=== PATIENT | male | born 1945 | race Caucasian/White ===

== ENCOUNTER 2016-07-31 13:20 | Observation (INO) | payer MEDICARE, MEDICAID ==
--- NOTE | 2016-07-31 14:26 | ER Document Report ---
ED Medical Screen (RME) - General Chief Complaint: Headache Stated Complaint: HEAD PAIN, LEFT ARM NUMBNESS Mode of Arrival: Ambulatory Information source: Patient TRAVEL OUTSIDE OF THE [place] IN LAST 30 DAYS: No - HPI Onset: This morning - awoke w/ sxs Quality of pain: Other - numbness Severity: Mild Associated Symptoms: Headache, Weakness - arm, Other - epistaxis Exacerbated by: Denies Relieved by: Denies - Related Data Smoking: Non-smoker Frequency of alcohol use: None Drug Abuse: None Allergies/Adverse Reactions: No Known Allergies Allergy (Verified 07/31/16 13:26) Past Medical History - General Information source: Patient, Relative - Social History Cigarette use (# per day): No Chew tobacco use (# tins/day): No Frequency of alcohol use: None Drug Abuse: None Lives with: Family Family history: Reviewed & Not Pertinent - Past Medical History Cardiac Medical History: Reports: Hx Atrial Fibrillation, Hx Hypercholesterolemia, Hx Hypertension Denies: Hx Congestive Heart Failure, Hx Coronary Artery Disease, Hx Heart Attack, Hx Peripheral Vascular Disease, Hx Pulmonary Embolism, Hx Heart Murmur Pulmonary Medical History: Reports: Hx COPD, Hx Pneumonia Denies: Hx Asthma, Hx Bronchitis, Hx Respiratory Failure, Hx Sleep Apnea, Hx Tuberculosis Neurological Medical History: Reports: Hx Migraine. Denies: Hx Cerebrovascular Accident, Hx Seizures Endocrine Medical History: Reports: Hx Hypothyroidism Renal/ Medical History: Denies: Hx Peritoneal Dialysis Malignancy Medical History: Denies Hx Lung Cancer GI Medical History: Reports: Hx Gastroesophageal Reflux Disease, Hx Ulcer. Denies: Hx Crohn's Disease, Hx Hiatal Hernia, Hx Irritable Bowel, Hx Liver Failure Musculoskeltal Medical History: Reports Hx Arthritis, Denies Hx Fibromyalgia, Denies Hx Muscular Dystrophy Psychiatric Medical History: Denies: Hx Depression Traumatic Medical History: Reports: Hx Fractures Past Surgical History: Reports: Hx Abdominal Surgery - hernia, ulcer, Hx Appendectomy, Hx Cardiac Surgery - pacemaker, Hx Herniorrhaphy, Hx Pacemaker - meditronic, Other - Partial gastric resection secondary to ulcer. Denies: Hx Cardiac Catheterization, Hx Colostomy, Hx Coronary Stent - Immunizations Hx Diphtheria, Pertussis, Tetanus Vaccination: No - unknown Review of Systems - Review of Systems Constitutional: No symptoms reported EENT: See HPI Cardiovascular: See HPI Respiratory: No symptoms reported Gastrointestinal: No symptoms reported Musculoskeletal: No symptoms reported Skin: No symptoms reported Neurological/Psychological: See HPI Physical Exam - Vital signs Vitals: Temp Pulse Resp BP Pulse Ox 98.0 F 63 16 134/70 H 96 07/31/16 13:34 07/31/16 13:34 07/31/16 13:34 07/31/16 13:34 07/31/16 13:34 Interpretation: Normal - General General appearance: Appears well, Alert In distress: None Course - Vital Signs Vital signs: Temp Pulse Resp BP Pulse Ox 98.0 F 63 16 134/70 H 96 07/31/16 13:34 07/31/16 13:34 07/31/16 13:34 07/31/16 13:34 07/31/16 13:34
[2016-07-31 14:58] LABS: ABSOLUTE BASOPHILS # (AUTO) 0.1 10^3/uL (0.0-0.2); ABSOLUTE EOSINOPHILS # (AUTO) 0.4 10^3/uL (0.0-0.6); ABSOLUTE LYMPHOCYTES (AUTO) 1.5 10^3/uL (0.5-4.7); ABSOLUTE MONOCYTES (AUTO) 0.5 10^3/uL (0.1-1.4); ABSOLUTE NEUT (AUTO) 4.4 10^3/uL (1.7-8.2); BASOPHILS % (AUTO) 0.8 % (0-2); EOSINOPHILS % (AUTO) 5.9 % (0-6); HEMATOCRIT 38.4 % (37.9-51.0); HEMOGLOBIN 13.4 g/dL (13.5-17.0); HGB HCT DIFFERENCE 1.8; LYMPHOCYTES % (AUTO) 22.3 % (13-45); MEAN CORPUSCULAR HEMOGLOBIN 33.6 pg (27.0-33.4); MEAN CORPUSCULAR HGB CONC 34.9 g/dL (32.0-36.0); MEAN CORPUSCULAR VOLUME 96 fl (80-97); MONOCYTES % (AUTO) 7.7 % (3-13); RED BLOOD COUNT 3.99 10^6/uL (4.35-5.55); RED CELL DISTRIBUTION WIDTH 13.6 % (11.5-14.0); SEGMENTED NEUTROPHILS % (AUTO) 63.3 % (42-78); WHITE BLOOD COUNT 6.9 10^3/uL (4.0-10.5)
[2016-07-31 15:24] LABS: ALANINE AMINOTRANSFERASE 38 U/L (21-72); ALBUMIN 3.6 g/dL (3.5-5.0); ALKALINE PHOSPHATASE 59 U/L (38-126); ANION GAP 11 (5-19); ASPARTATE AMINO TRANSFERASE 29 U/L (17-59); BILIRUBIN,DIRECT 0.2 mg/dL (0.0-0.4); BILIRUBIN,TOTAL 0.5 mg/dL (0.2-1.3); BLOOD UREA NITROGEN 19 mg/dL (7-20); CALCIUM 8.9 mg/dL (8.4-10.2); CARBON DIOXIDE 24 mmol/L (22-30); CHLORIDE 110 mmol/L (98-107); CREATININE RESULT 1.28 mg/dL (0.52-1.25); GLUCOSE 121 mg/dL (75-110); POTASSIUM 4.4 mmol/L (3.6-5.0); TOTAL PROTEIN 6.3 g/dL (6.3-8.2)
--- NOTE | 2016-07-31 18:21 | ER Document Report ---
ED Neuro Symptoms/Deficit - General Chief Complaint: Headache Stated Complaint: HEAD PAIN, LEFT ARM NUMBNESS Time seen by provider: 18:20 Mode of Arrival: Ambulatory Information source: Patient TRAVEL OUTSIDE OF THE [place] IN LAST 30 DAYS: No - HPI Patient complains to provider of: Weakness - Left arm and leg Onset: This morning Awoke with symptoms: Yes Symptoms are: Worse/persistent Duration: Continues in ED Quality of pain: No pain Baseline Gait: Walks w/o assistance New weakness: LUE, LLE Decreased ability to stand/walk: Weak Vision problem/glaucoma: No Associated symptoms: Headache Similar symptoms previously: Yes Recently seen / treated by doctor: Yes Notes: Patient is a 70-year-old male who presents to the emergency room complaining of left-sided arm and leg weakness that started when he woke up around 5 AM, he also reports a nosebleed this morning and a headache, patient has a history of CVA and was admitted this hospital back in [place] for similar symptoms, he states his symptoms resolved intermittently, and came back today, states he called his primary care provider who advised him to come to the emergency room - Related Data Allergies/Adverse Reactions: No Known Allergies Allergy (Verified 07/31/16 13:26) Home Medications: Current Home Medications Acetaminophen [Tylenol 325 mg Tablet] 650 mg PO Q4HP PRN 07/31/16 [History] Amiodarone HCl [Cordarone 200 mg Tablet] 200 mg PO DAILY 07/31/16 [History] Apixaban [Eliquis 5 mg Tablet] 5 mg PO BID 07/31/16 [History] Aspirin [Aspirin EC] 81 mg PO DAILY 07/31/16 [History] Levothyroxine Sodium [Synthroid] 50 mcg PO DAILY 07/31/16 [History] Metoprolol Succinate [Toprol Xl 25 mg Tab.sr] 25 mg PO DAILY 07/31/16 [History] Pantoprazole Sodium [Protonix] 40 mg PO DAILY 07/31/16 [History] Potassium Chloride 10 meq PO DAILY 07/31/16 [History] Simvastatin [Zocor 20 mg Tablet] 20 mg PO QHS 07/31/16 [History] Tiotropium [place] [Spiriva Handihaler 5 Cap/Kit (18 Mcg/Cap)] 1 cap IH DAILY [History] Past Medical History - General Information source: Patient, Relative - Social History Smoking Status: Unknown if Ever Smoked Cigarette use (# per day): No Chew tobacco use (# tins/day): No Frequency of alcohol use: None Drug Abuse: None Lives with: Family Family History: CAD - Father Patient has suicidal ideation: No Patient has homicidal ideation: No - Past Medical History Cardiac Medical History: Reports: Hx Atrial Fibrillation, Hx Hypercholesterolemia, Hx Hypertension Denies: Hx Congestive Heart Failure, Hx Coronary Artery Disease, Hx Heart Attack, Hx Peripheral Vascular Disease, Hx Pulmonary Embolism, Hx Heart Murmur Pulmonary Medical History: Reports: Hx COPD, Hx Pneumonia Denies: Hx Asthma, Hx Bronchitis, Hx Respiratory Failure, Hx Sleep Apnea, Hx Tuberculosis Neurological Medical History: Reports: Hx Migraine. Denies: Hx Cerebrovascular Accident, Hx Seizures Endocrine Medical History: Reports: Hx Hypothyroidism Renal/ Medical History: Denies: Hx Peritoneal Dialysis Malignancy Medical History: Denies Hx Lung Cancer GI Medical History: Reports: Hx Gastroesophageal Reflux Disease, Hx Ulcer. Denies: Hx Crohn's Disease, Hx Hiatal Hernia, Hx Irritable Bowel, Hx Liver Failure Musculoskeltal Medical History: Reports Hx Arthritis, Denies Hx Fibromyalgia, Denies Hx Muscular Dystrophy Psychiatric Medical History: Denies: Hx Depression Traumatic Medical History: Reports: Hx Fractures Past Surgical History: Reports: Hx Abdominal Surgery - hernia, ulcer, Hx Appendectomy, Hx Cardiac Surgery - pacemaker, Hx Herniorrhaphy, Hx Pacemaker - meditronic, Other - Partial gastric resection secondary to ulcer. Denies: Hx Cardiac Catheterization, Hx Colostomy, Hx Coronary Stent - Immunizations Hx Diphtheria, Pertussis, Tetanus Vaccination: No - unknown Hx Pneumococcal Vaccination: 02/28/10 Review of Systems - Review of Systems Constitutional: No symptoms reported EENT: No symptoms reported Cardiovascular: No symptoms reported Respiratory: No symptoms reported Gastrointestinal: No symptoms reported Genitourinary: No symptoms reported Male Genitourinary: No symptoms reported Musculoskeletal: No symptoms reported Skin: No symptoms reported Hematologic/Lymphatic: No symptoms reported Neurological/Psychological: See HPI -: Yes All other systems reviewed and negative Physical Exam - Vital signs Vitals: Temp Pulse Resp BP Pulse Ox 98.0 F 63 16 134/70 H 96 07/31/16 13:34 07/31/16 13:34 07/31/16 13:34 07/31/16 13:34 07/31/16 13:34 Interpretation: Normal - General General appearance: Appears well, Alert - HEENT Head: Normocephalic, Atraumatic Eyes: Normal Pupils: PERRL - Respiratory Respiratory status: No respiratory distress Chest status: Nontender Breath sounds: Normal Chest palpation: Normal - Cardiovascular Rhythm: Regular Heart sounds: Normal auscultation Murmur: No - Abdominal Inspection: Normal Distension: No distension Bowel sounds: Normal Tenderness: Nontender Organomegaly: No organomegaly - Back Back: Normal, Nontender - Extremities General upper extremity: Normal inspection, Nontender, Normal color, Normal ROM , Normal temperature General lower extremity: Normal inspection, Nontender, Normal color, Normal ROM , Normal temperature, Normal weight bearing. No: Ish's sign - Neurological Neuro grossly intact: Yes Cognition: Normal Orientation: AAOx4 [place] Scale Eye Opening: Spontaneous [place] Scale Verbal: Oriented [place] Coma Scale Motor: Obeys Commands [place] Scale Total: 15 Speech: Normal Additional motor exam normals: Other - Patient with 4 out of 5 strength in the left upper and lower extremities Sensory: Normal - Psychological Associated symptoms: Normal affect, Normal mood - Skin Skin Temperature: Warm Skin Moisture: Dry Skin Color: Normal Course - Re-evaluation Re-evalutation: 07/31/16 23:31 Patient with symptoms consistent with acute CVA, however symptoms started at 5: 00 in the morning, patient does not meet the window to receive TPA, he was discussed with the hospitalist who agrees to admit for further evaluation and treatment - Vital Signs Vital signs: Temp Pulse Resp BP Pulse Ox 98.0 F 63 16 134/70 H 96 07/31/16 13:34 07/31/16 13:34 07/31/16 13:34 07/31/16 13:34 07/31/16 13:34 - Laboratory Result Diagrams: 07/31/16 14:35 07/31/16 14:35 Laboratory results interpreted by me: 07/31/16 07/31/16 14:35 14:35 RBC 3.99 L Hgb 13.4 L MCH 33.6 H Chloride 110 H Creatinine 1.28 H Est GFR (Non-Af Amer) 55 L Glucose 121 H - Diagnostic Test Radiology reviewed: Image reviewed, Reports reviewed - EKG Interpretation by Me Rate: Normal Additional EKG results interpreted by me: 07/31/16 23:31 Paced rhythm, rate 63, no acute findings - Transfer of Care Care transferred to following provider: Dr. Rinaldi ED [employer]/Exc Criteria - Date/Time patient last known well: Date/Time: 07/31/2016, 5 AM - Date/Time patient arrived in ED: _: 07/31/2016, 1326 - Inclusion Criteria: 1: Patient presented to ED within 3 hours of acute ischemic stroke symptom onset ? -: No 2: Did baseline CT exclude intracranial hemorrhage and/or other risk factors? -: Yes 3: Is the age of the patient 18 years of age or greater? -: Yes : If any of the above questions are answered "NO" then stop, patient is not a candidate for Alteplase, : If all of the above questions are answered "YES" then continue with Exclusion Criteria. - Exclusion Criteria: 1: Is there evidence of intracranial hemorrhage on baseline CT? 2: Is there suspicion of subarachnoid hemorrhage (even if CT negative)? 3: Is there a history of serious head trauma, recent previous stroke or NM within 3 months? 4: Does the patient have a clinical presentation consistent with NM or post-NM pericarditis? 5: Is there history of intracranial hemorrhage? 6: On repeated measurement is Systolic BP greater than 185mmHg or Diastolic BP greater that 110 mmHg and is aggressive treatment needed to reduce blood pressure to these limits (e.g. constant infusion of an anti-hypertensive)? 7: Did the patient awake with stroke symptoms? 8: Has the patient had a lumbar puncture or an arterial puncture at a non- compressile site within 7 days? 9: With in the last 14 days did the patient have surgery or major trauma? 10: Is the patient or less than 2 weeks? 11: Was there any active bleeding or acute trauma? 12: Does the patient have intracranial neoplasm, arteriovenous malformation or aneurysm? 13: Does the patient have abnormal glucose (less than 50 or greater than 400mg/ dl)? Record glucose in Comment. 14: Patient has rapidly improving symptoms at the time Alteplase is to be Administered. 15: Does the patient have any risks for bleeding, including but not limited to: a.: Current use of Coumadin with PT greater than 15 seconds or INR greater than 1.7. b.: Current use of Pradaxa (Dabigatran). c.: Heparin administereed within the past 48 hours and PTT elevated. d.: Platelet count less than 100,000/mm. e.: Major surgery or serious trauma within 14 days. f.: Gastrointestinal or gynecological urinary bleeding within 14 days. g.: Myocardial Infarction (NM) within 3 months. : If the answer to any of the above questions is "YES" then stop, the patient is not a candidate for Alteplase. : If the answer to all of the above questions is "NO" then the patient may be eligible for the Administration of Alteplase. : If the patient is noted to have seizure activity at onset of Stroke symptoms; Consult Neurologist for further evaluation. - The patient is: -: Included and is eligible to receive Alteplase. *Initiate bed placement at higher level of care* Reviewd risks & benefits of thrombolytic therapy: I have reviewed the risks and benefits of thrombolytic therapy with the patient and/or his/her family. -: Excluded and not eligible to receive Alteplase for the above exclusions. -: Excluded and not eligible to receive Alteplase for other reasons (specify in comments): --: Yes - patient does not meet 3 hour window - Diagnosis of TIA: -: Patient presented with transient symptoms that are now resolved and no other neurologic findings are currently present. List symptoms in comments. -: Patient is NOT a candidate for tPA. -: ____(put name in comment) has been consulted for admission and continued evaluation of risk factor assessment. Discharge - Discharge Clinical Impression: Acute CVA (cerebrovascular accident) Condition: Stable Disposition: ADMITTED OBSERVATION Admitting Provider: Hospitalist Unit Admitted: [facility]
[2016-07-31] MEDS ORDERED: ACETAMINOPHEN 325 MG TABLET PO PRN (18:52)
[2016-07-31] MEDS ORDERED: ONDANSETRON 4 MG TAB.RAPDIS PO PRN (18:52)
[2016-07-31] MEDS ORDERED: ONDANSETRON HCL INJ/PF 4 MG/2 ML SDV IV PRN (18:52)
--- NOTE | 2016-07-31 19:05 | EKG REPORT ---
SEVERITY:- ABNORMAL ECG - ATRIAL-PACED COMPLEXES LEFT VENTRICULAR HYPERTROPHY : Confirmed by: Yasmin Mendez MD 31-Jul-2016 19:04:53
--- NOTE | 2016-07-31 19:12 | PDOC H&P ---
History of Present Illness Admission Date/PCP: DELFINO BLACKMON PA-C Patient complains of: Left arm and leg numbness and weakness History of Present Illness: LIONEL ACEVEDO is a 70 year old male who has a history of previous CVA and has been hospitalized in March 2016 had a workup at that time with an echocardiogram and carotid Dopplers that were unremarkable. The patient has been on Eliquis and had been on aspirin also been stopped that about a week ago. He presented by waking up this morning with left arm numbness left leg numbness and some weakness in both of those. He also noticed some problems with nose bleeding and called his primary care doctor instructed him go to the emergency room. The patient had a previous CVA with left arm weakness and needs whatever somebody all function. The patient denied any visual changes. Denied any dysarthria or dysphasia. Denies have any palpitations or tachycardia but does have known atrial fibrillation but is anticoagulated with Eliquis and he has been compliant with. The patient denies any fevers or chills. He denies any head trauma. Past Medical History Cardiac Medical History: Reports: Atrial Fibrillation, Hyperlipidema, Hypertension Denies: Congestive Heart Failure, Coronary Artery Disease, Myocardial Infarction, Peripheral Vascular Disease, Pulmonary Embolism, Heart Murmur Pulmonary Medical History: Reports: Chronic Obstructive Pulmonary Disease (COPD) , Pneumonia Denies: Asthma, Bronchitis, Respiratory Failure, Sleep Apnea, Tuberculosis Neurological Medical History: Reports: Migraine Denies: Seizures Endocrine Medical History: Reports: Hypothyroidism Malignancy Medical History: Denies: Lung Cancer GI Medical History: Reports: Gastroesophageal Reflux Disease Denies: Crohn's Disease, Hiatal Hernia Musculoskeltal Medical History: Reports: Arthritis Denies: Fibromyalgia Psychiatric Medical History: Denies: Depression Hematology: Denies: Anemia Infectious Medical History: Reports: None Past Surgical History Past Surgical History: Reports: Appendectomy, Herniorrhaphy, Pacemaker - meditronic, Other - Partial gastric resection secondary to ulcer Denies: Cardiac Catheterization, Colostomy, Coronary Stent Social History Information Source: Patient Lives with: Family Smoking Status: Never Smoker Frequency of Alcohol Use: None Hx Recreational Drug Use: No Drugs: None Hx Prescription Drug Abuse: No - Advance Directive Resuscitation Status: Do Not Resuscitate Surrogate healthcare decision maker:: His brother Moses is his decision maker. Family History Family History: CAD - Father Parental Family History Reviewed: Yes Children Family History Reviewed: No Sibling(s) Family History Reviewed.: No Medication/Allergy Allergies/Adverse Reactions: No Known Allergies Allergy (Verified 07/31/16 13:26) Review of Systems Constitutional: ABSENT: chills, fever(s), headache(s), weight gain, weight loss Eyes: ABSENT: visual disturbances Ears: ABSENT: hearing changes Nose, Mouth, and Throat: PRESENT: other - Epistaxis Cardiovascular: ABSENT: chest pain, dyspnea on exertion, edema, orthropnea, palpitations Respiratory: ABSENT: cough, hemoptysis Gastrointestinal: ABSENT: abdominal pain, constipation, diarrhea, hematemesis, hematochezia, nausea, vomiting Genitourinary: ABSENT: dysuria, hematuria Musculoskeletal: ABSENT: joint swelling Integumentary: ABSENT: rash, wounds Neurological: PRESENT: as per HPI Psychiatric: ABSENT: anxiety, depression Endocrine: ABSENT: cold intolerance, heat intolerance, polydipsia, polyuria Hematologic/Lymphatic: PRESENT: easy bleeding - He is on Eliquis. ABSENT: easy bruising Physical Exam Vital Signs: Temp Pulse Resp BP Pulse Ox 98.0 F 63 16 134/70 H 96 07/31/16 13:34 07/31/16 13:34 07/31/16 13:34 07/31/16 13:34 07/31/16 13:34 Intake & Output 07/30/16 07/31/16 08/01/16 06:59 06:59 06:59 Weight 67.5 kg General appearance: PRESENT: no acute distress, well-developed, well-nourished Head exam: PRESENT: atraumatic, normocephalic Eye exam: PRESENT: conjunctiva pink, EOMI, PERRLA. ABSENT: scleral icterus Ear exam: PRESENT: normal external ear exam Mouth exam: PRESENT: moist, tongue midline Teeth exam: PRESENT: poor dentation Neck exam: ABSENT: carotid bruit, JVD, lymphadenopathy, thyromegaly Respiratory exam: PRESENT: clear to auscultation corine. ABSENT: rales, rhonchi, wheezes Cardiovascular exam: PRESENT: irregular rhythm. ABSENT: diastolic murmur, rubs , systolic murmur Pulses: PRESENT: normal dorsalis pedis pul Vascular exam: PRESENT: normal capillary refill GI/Abdominal exam: PRESENT: normal bowel sounds, soft. ABSENT: distended, guarding, mass, organolmegaly, rebound, tenderness Rectal exam: PRESENT: deferred Extremities exam: ABSENT: calf tenderness, clubbing, pedal edema Neurological exam: PRESENT: alert, awake, oriented to person, oriented to place , oriented to time, oriented to situation, CN II-XII grossly intact, motor sensory deficit - Strength is 4 out of 5 on the left upper and lower extremity. Psychiatric exam: PRESENT: appropriate affect Skin exam: PRESENT: dry, intact, warm. ABSENT: cyanosis, rash Results Laboratory Results: 07/31/16 14:35 07/31/16 14:35 07/31/16 07/31/16 14:35 14:35 WBC 6.9 RBC 3.99 L Hgb 13.4 L Hct 38.4 MCV 96 MCH 33.6 H MCHC 34.9 RDW 13.6 Plt Count 190 Seg Neutrophils % 63.3 Lymphocytes % 22.3 Monocytes % 7.7 Eosinophils % 5.9 Basophils % 0.8 Absolute Neutrophils 4.4 Absolute Lymphocytes 1.5 Absolute Monocytes 0.5 Absolute Eosinophils 0.4 Absolute Basophils 0.1 Sodium 145.0 Potassium 4.4 Chloride 110 H Carbon Dioxide 24 Anion Gap 11 BUN 19 Creatinine 1.28 H Est GFR ( Amer) > 60 Est GFR (Non-Af Amer) 55 L Glucose 121 H Calcium 8.9 Total Bilirubin 0.5 AST 29 ALT 38 Alkaline Phosphatase 59 Total Protein 6.3 Albumin 3.6 Impressions: Head CT 07/31/16 00:00 IMPRESSION: MILD CHRONIC CHANGES OF ATROPHY AND MICROVASCULAR ISCHEMIA. NO ACUTE PROCESS. Assessment & Plan - Diagnosis (1) Acute CVA (cerebrovascular accident) Is this a current diagnosis for this admission?: YesPlan: Patient had recently stopped his aspirin but did continue with his Eliquis. He is instructed not to stop his aspirin unless he is instructed to by a physician. We will restart his aspirin 81 mg a day. He just had a full workup for CVA in March 2016 and will not be repeated. He cannot have an MRI because of his pacemaker. Will consult PT and OT to evaluate. We will admit as observation as I anticipate as long as his symptoms worsen he can be discharged home tomorrow. (2) Hypercholesterolemia Is this a current diagnosis for this admission?: YesPlan: Continue with Zocor. (3) Hypertension Is this a current diagnosis for this admission?: YesPlan: Continue with metoprolol. (4) Hypothyroid Is this a current diagnosis for this admission?: YesPlan: Continue with Synthroid. (5) Afib Qualifiers: Atrial fibrillation type: unspecified Qualified Code(s): I48.91 - Unspecified atrial fibrillation Is this a current diagnosis for this admission?: YesPlan: Patient is on Eliquis and amiodarone as well as Toprol and we will continue with those. - Time Time Spent: 50 to 70 Minutes - Plan Summary Plan Summary: Admit as observation as I anticipate he can go home tomorrow unless his symptoms worsen.
[2016-07-31] MEDS: METOPROLOL SUCCINATE 25 MG TAB.SR.24H PO SCH (21:47)
[2016-07-31] MEDS ORDERED: SIMVASTATIN 10 MG TABLET PO SCH (22:00)
[2016-08-01 05:58] LABS: HEMATOCRIT 37.5 % (37.9-51.0); HEMOGLOBIN 13.2 g/dL (13.5-17.0); HGB HCT DIFFERENCE 2.1; MEAN CORPUSCULAR HEMOGLOBIN 33.4 pg (27.0-33.4); MEAN CORPUSCULAR HGB CONC 35.2 g/dL (32.0-36.0); MEAN CORPUSCULAR VOLUME 95 fl (80-97); RED BLOOD COUNT 3.96 10^6/uL (4.35-5.55); RED CELL DISTRIBUTION WIDTH 13.4 % (11.5-14.0); WHITE BLOOD COUNT 6.8 10^3/uL (4.0-10.5)
[2016-08-01 06:07] LABS: ANION GAP 11 (5-19); BLOOD UREA NITROGEN 16 mg/dL (7-20); CALCIUM 8.6 mg/dL (8.4-10.2); CARBON DIOXIDE 22 mmol/L (22-30); CHLORIDE 112 mmol/L (98-107); GLUCOSE 93 mg/dL (75-110); SODIUM 144.6 mmol/L (137-145)
--- NOTE | 2016-08-01 09:35 | Physician Advisory Note ---
Physician Advisor ProgressNote .: Pursuant to the plan for [facility], I have reviewed the medical record for this patient. Physician Advisor Statement: Please consider documentin. ""Acute Rt-sided thrombotic [or embolic?] middle cerebral artery CVA with cerebral infarction, with Lt [dominant or nondominant?] hemiparesis, [resolved or improved or persistent] " Status: appropriate OutPt Obs. Thanks, CK
[2016-08-01] MEDS ORDERED: AMIODARONE HCL 200 MG TABLET PO SCH (10:00)
[2016-08-01] MEDS ORDERED: ASPIRIN 81 MG TABLET, ENT COATED PO SCH (10:00)
[2016-08-01] MEDS ORDERED: APIXABAN 5 MG TABLET PO SCH (10:00)
[2016-08-01] MEDS ORDERED: LEVOTHYROXINE SODIUM 0.05 MG TABLET PO SCH (10:00)
[2016-08-01] MEDS ORDERED: TIOTROPIUM BROMIDE DPI 5 CAP/KIT (18 MCG/CAP) IH SCH (10:00)
[2016-08-01 10:28] VITALS: BP 110/68
[2016-08-01] MEDS: METOPROLOL SUCCINATE 25 MG TAB.SR.24H PO SCH (10:49)
--- NOTE | 2016-08-01 11:33 | PDOC DISCHARGE SUMMARY ---
General - Admit/Disc Date/PCP Admission Date/Primary Care Provider: 07/31/16 18:53 DELFINO BLACKMON PA-C Discharge Date: 08/01/16 - Discharge Diagnosis (1) Acute CVA (cerebrovascular accident) Is this a current diagnosis for this admission?: YesSummary: With left-sided weakness which has improved but has not resolved overnight. He has had a previous stroke workup in March 2016. He cannot have an MRI because of a pacemaker. He has been instructed to restart his aspirin and do not quit it. (2) Hypercholesterolemia Is this a current diagnosis for this admission?: Yes (3) Hypertension Is this a current diagnosis for this admission?: Yes (4) Hypothyroid Is this a current diagnosis for this admission?: Yes (5) Afib Is this a current diagnosis for this admission?: Yes - Additional Information Resuscitation Status: Do Not Resuscitate Discharge Diet: Cardiac Discharge Activity: Activity As Tolerated Home Medications: Acetaminophen [Tylenol 325 mg Tablet] 650 mg PO Q4HP PRN 07/31/16 Amiodarone HCl [Cordarone 200 mg Tablet] 200 mg PO DAILY 07/31/16 Apixaban [Eliquis 5 mg Tablet] 5 mg PO BID 07/31/16 Aspirin [Aspirin EC] 81 mg PO DAILY 07/31/16 Levothyroxine Sodium [Synthroid] 50 mcg PO DAILY 07/31/16 Metoprolol Succinate [Toprol Xl 25 mg Tab.sr] 25 mg PO DAILY 07/31/16 Pantoprazole Sodium [Protonix] 40 mg PO DAILY 07/31/16 Potassium Chloride 10 meq PO DAILY 07/31/16 Simvastatin [Zocor 20 mg Tablet] 20 mg PO QHS 07/31/16 Tiotropium [place] [Spiriva Handihaler 5 Cap/Kit (18 Mcg/Cap)] 1 cap IH DAILY History of Present Illness History of Present Illness: LIONEL ACEVEDO is a 70 year old male who has a history of previous CVA and has been hospitalized in March 2016 had a workup at that time with an echocardiogram and carotid Dopplers that were unremarkable. The patient has been on Eliquis and had been on aspirin also been stopped that about a week ago. He presented by waking up this morning with left arm numbness left leg numbness and some weakness in both of those. He also noticed some problems with nose bleeding and called his primary care doctor instructed him go to the emergency room. The patient had a previous CVA with left arm weakness and needs whatever somebody all function. The patient denied any visual changes. Denied any dysarthria or dysphasia. Denies have any palpitations or tachycardia but does have known atrial fibrillation but is anticoagulated with Eliquis and he has been compliant with. The patient denies any fevers or chills. He denies any head trauma. Hospital Course Hospital Course: 70-year-old gentleman with history of atrial fibrillation and previous CVA who has been on Eliquis as well as aspirin but stopped his aspirin several weeks ago because of excessive bleeding and epistaxis. Patient presented with worsening left-sided weakness and he had a head CT that was unremarkable but clinically had an acute right hemispheric CVA. Patient was monitored overnight and had slight improvement in his symptoms was felt he was stable for discharge. The patient in March 2016 had a carotid Doppler which showed no evidence for stenosis and he also had an echocardiogram done at that time. He has been on Eliquis because of atrial fibrillation. The patient's other medical problems were unchanged during this hospitalization. It's felt that he was stable for discharge to home. He is instructed to not stop his aspirin unless instructed to by a physician. Physical Exam Vital Signs: Temp Pulse Resp BP Pulse Ox 97.6 F 62 18 110/68 99 08/01/16 10:26 08/01/16 10:26 08/01/16 10:26 08/01/16 10:26 08/01/16 10:26 Intake & Output 07/31/16 08/01/16 08/02/16 06:59 06:59 06:59 Intake Total 1010 Balance 1010 Weight 66 kg General appearance: PRESENT: no acute distress Eye exam: PRESENT: conjunctiva pink. ABSENT: scleral icterus Ear exam: PRESENT: normal external ear exam Mouth exam: PRESENT: dry mucosa Neck exam: ABSENT: carotid bruit, JVD, lymphadenopathy, thyromegaly Respiratory exam: PRESENT: clear to auscultation corine. ABSENT: rales, rhonchi, wheezes Cardiovascular exam: PRESENT: irregular rhythm. ABSENT: diastolic murmur, rubs , systolic murmur GI/Abdominal exam: PRESENT: normal bowel sounds, soft. ABSENT: distended, guarding, mass, organolmegaly, rebound, tenderness Extremities exam: ABSENT: calf tenderness, clubbing, pedal edema Neurological exam: PRESENT: alert, awake, oriented to person, oriented to place , oriented to time, oriented to situation, CN II-XII grossly intact, motor sensory deficit - Strength is 4 out of 5 on the left upper and lower extremity. Psychiatric exam: PRESENT: appropriate affect Skin exam: PRESENT: dry, intact, warm. ABSENT: cyanosis, rash Results Laboratory Results: 08/01/16 05:34 08/01/16 05:34 08/01/16 08/01/16 05:34 05:34 WBC 6.8 RBC 3.96 L Hgb 13.2 L Hct 37.5 L MCV 95 MCH 33.4 MCHC 35.2 RDW 13.4 Plt Count 178 Sodium 144.6 Potassium 4.0 Chloride 112 H Carbon Dioxide 22 Anion Gap 11 BUN 16 Creatinine 1.00 Est GFR ( Amer) > 60 Est GFR (Non-Af Amer) > 60 Glucose 93 Calcium 8.6 Impressions: Head CT 07/31/16 00:00 IMPRESSION: MILD CHRONIC CHANGES OF ATROPHY AND MICROVASCULAR ISCHEMIA. NO ACUTE PROCESS. Qualifiers PATEINT BEING DISCHARGED WITH ANY OF THE FOLLOWING DIAGNOSIS?: Stroke Stroke Pt being discharged on Anti-thrombolytic therapy?: Yes Stroke Pt being discharged on Anti-coagulation therapy?: Yes Stroke Pt being discharged on Statins?: Yes Plan Discharge Plan: Patient is discharged home in stable condition. He will follow-up with his primary care in 2 weeks. Time Spent: Less than 30 Minutes
== END 2016-08-01 11:33 | disposition home or self-care (01) ==
LOC: ER 13:20 → EH 18:53 → UNDOADMOB 19:07 → 3N 22:59
PROVIDERS: ADMIT Internal Medicine; ATTEND Internal Medicine
DX: I63.9 Cerebral infarction, unspecified (principal); G81.94 Hemiplegia, unspecified affecting left nondominant side; E78.00 Pure hypercholesterolemia, unspecified; I10 Essential (primary) hypertension; E03.9 Hypothyroidism, unspecified; I48.91 Unspecified atrial fibrillation; Z79.01 Long term (current) use of anticoagulants; J44.9 Chronic obstructive pulmonary disease, unspecified; K21.9 Gastro-esophageal reflux disease without esophagitis; Z66 Do not resuscitate
CPT/HCPCS: 93005; 99285; 36415 ×2; 85025; 85027; 80048; 80053; 70450; 93010; G0378 ×3; A9270 ×6; J3490

== ENCOUNTER 2016-08-04 12:35 | Emergency (ER) | payer MEDICARE, MEDICAID ==
--- NOTE | 2016-08-04 13:18 | ER Document Report ---
ED Medical Screen (RME) - General Chief Complaint: Pain All Over Stated Complaint: BODY ACHES Time seen by provider: 13:16 Mode of Arrival: Ambulatory Information source: Patient Notes: 20-year-old male presented to ED for states he feels bad. No nausea vomiting diarrhea or fever. He states he is just very weak cannot walk left leg is too weak. States he was just discharged from the hospital on 07/31/2016 after having a stroke and continues to have weakness to his left leg and pain and weakness to his left arm. States he feels just like he did right before he had a stroke. I consult to Dr. Esparza who stated he need to be on the monitor he needs a CT and he needs to be moved to monitored bed. Patient was moved to room 1 for a physician to see. Patient does not have a facial droop did not have a drift for his left arm but does have a drift with his left leg. Very weak in his left leg. He became very short of breath quickly when asked to move arms and legs. I have greeted and performed a rapid initial assessment of this patient. A comprehensive ED assessment and evaluation of the patient, analysis of test results and completion of medical decision making process will be conducted by an additional ED providers. TRAVEL OUTSIDE OF THE [place] IN LAST 30 DAYS: No - Related Data Allergies/Adverse Reactions: No Known Allergies Allergy (Verified 07/31/16 13:26) Past Medical History - Social History Family history: Reviewed & Not Pertinent - Past Medical History Cardiac Medical History: Reports: Hx Atrial Fibrillation, Hx Hypercholesterolemia, Hx Hypertension Denies: Hx Congestive Heart Failure, Hx Coronary Artery Disease, Hx Heart Attack, Hx Peripheral Vascular Disease, Hx Pulmonary Embolism, Hx Heart Murmur Pulmonary Medical History: Reports: Hx COPD, Hx Pneumonia Denies: Hx Asthma, Hx Bronchitis, Hx Respiratory Failure, Hx Sleep Apnea, Hx Tuberculosis Neurological Medical History: Reports: Hx Migraine. Denies: Hx Cerebrovascular Accident, Hx Seizures Endocrine Medical History: Reports: Hx Hypothyroidism Renal/ Medical History: Denies: Hx Peritoneal Dialysis Malignancy Medical History: Denies Hx Lung Cancer GI Medical History: Reports: Hx Gastroesophageal Reflux Disease, Hx Ulcer. Denies: Hx Crohn's Disease, Hx Hiatal Hernia, Hx Irritable Bowel, Hx Liver Failure Musculoskeltal Medical History: Reports Hx Arthritis, Denies Hx Fibromyalgia, Denies Hx Muscular Dystrophy Psychiatric Medical History: Denies: Hx Depression Traumatic Medical History: Reports: Hx Fractures Past Surgical History: Reports: Hx Abdominal Surgery - hernia, ulcer, Hx Appendectomy, Hx Cardiac Surgery - pacemaker, Hx Herniorrhaphy, Hx Pacemaker - meditronic, Other - Partial gastric resection secondary to ulcer. Denies: Hx Cardiac Catheterization, Hx Colostomy, Hx Coronary Stent - Immunizations Hx Diphtheria, Pertussis, Tetanus Vaccination: No - unknown Physical Exam - Vital signs Vitals: Temp Pulse Resp BP Pulse Ox 97.4 F 64 20 122/68 97 08/04/16 12:41 08/04/16 12:41 08/04/16 12:41 08/04/16 12:41 08/04/16 12:41 Course - Vital Signs Vital signs: Temp Pulse Resp BP Pulse Ox 97.4 F 64 20 122/68 97 08/04/16 12:41 08/04/16 12:41 08/04/16 12:41 08/04/16 12:41 08/04/16 12:41
--- NOTE | 2016-08-04 13:38 | ER Document Report ---
ED General - General Time seen by provider: 13:30 Mode of Arrival: Ambulatory TRAVEL OUTSIDE OF THE [place] IN LAST 30 DAYS: No - HPI Onset: Other - see HPI note Similar symptoms previously: Yes Recently seen / treated by doctor: Yes <KODI MENDEZ - Last Filed: 08/04/16 14:46> <JAZ BOND - Last Filed: 08/04/16 16:11> - General Chief Complaint: Pain All Over Stated Complaint: BODY ACHES Notes: Patient is a 70-year-old male presents emergency department for weakness and headache. Patient states that he "feels bad all over." Patient was evaluated in the emergency department on Sunday07/31/16 for similar symptoms and was admitted to [facility] for CVA. Patient states that he had these symptoms on Sunday as well, but they got better and now they are back again. Patient states his left upper and lower extremities are weak and "feel bad." Patient also complains of a headache but denies any nausea, vomiting, diarrhea or fever. Patient has a history of a ventricular pacemaker and is currently on to blood thinners, one of which is aspirin. Patient also has a history of hypertension, hypercholesterolemia, COPD, A. fib, and hypothyroidism. Patient's primary care physician is Delfino Acosta. Patient has no known allergies. (KODI MENDEZ) - Related Data Allergies/Adverse Reactions: No Known Allergies Allergy (Verified 07/31/16 13:26) Past Medical History - General Information source: Patient - Social History Smoking Status: Smoker,Current Status Unk Family History: CAD - Father Patient has suicidal ideation: No Patient has homicidal ideation: No - Past Medical History Cardiac Medical History: Reports: Hx Atrial Fibrillation, Hx Hypercholesterolemia, Hx Hypertension Pulmonary Medical History: Reports: Hx COPD, Hx Pneumonia Neurological Medical History: Reports: Hx Cerebrovascular Accident, Hx Migraine Endocrine Medical History: Reports: Hx Hypothyroidism GI Medical History: Reports: Hx Gastroesophageal Reflux Disease, Hx Ulcer Musculoskeltal Medical History: Reports Hx Arthritis Traumatic Medical History: Reports: Hx Fractures Past Surgical History: Reports: Hx Abdominal Surgery - hernia, ulcer, Hx Appendectomy, Hx Cardiac Surgery - pacemaker, Hx Herniorrhaphy, Hx Pacemaker - meditronic, ventricular, Other - Partial gastric resection secondary to ulcer - Immunizations Hx Diphtheria, Pertussis, Tetanus Vaccination: No - unknown Hx Pneumococcal Vaccination: 02/28/10 <ANDREAKODI - Last Filed: 08/04/16 14:46> Review of Systems - Review of Systems Constitutional: See HPI, Weakness EENT: No symptoms reported Cardiovascular: No symptoms reported Respiratory: No symptoms reported Gastrointestinal: No symptoms reported Genitourinary: No symptoms reported Male Genitourinary: No symptoms reported Musculoskeletal: No symptoms reported Skin: No symptoms reported Hematologic/Lymphatic: No symptoms reported Neurological/Psychological: See HPI, Weakness, Headaches -: Yes All other systems reviewed and negative <KODI MENDEZ - Last Filed: 08/04/16 14:46> Physical Exam - Vital signs Interpretation: Normal <NABEELROXIEKODI - Last Filed: 08/04/16 14:46> Course - Laboratory Result Diagrams: 08/04/16 13:47 08/04/16 13:47 <KODI MENDEZ - Last Filed: 08/04/16 14:46> - Laboratory Result Diagrams: 08/04/16 13:47 08/04/16 14:42 - EKG Interpretation by Me Rate: Normal <JAZ BOND - Last Filed: 08/04/16 16:11> - Re-evaluation Re-evalutation: 08/04/16 14:27 Reviewed the patient's discharge summary as well as workup from March. Unfortunately an MRI cannot be performed as he has a pacemaker. As well, the patient has a history of atrial fibrillation and is currently in a normal paced rhythm. He has been on our requests and is back on his aspirin now. It appears he is completely compliant with this. He is not a TPA candidate as he is on our requests and has a low NIH scale. Patient's workup in March included no significant stenosis on carotid ultrasound as well as echocardiogram. (JAZ BOND) - Vital Signs Vital signs: Temp Pulse Resp BP Pulse Ox 97.7 F 64 23 H 116/69 95 08/04/16 15:53 08/04/16 13:45 08/04/16 13:47 08/04/16 13:47 08/04/16 13:47 - Laboratory Laboratory results interpreted by me: 08/04/16 08/04/16 08/04/16 13:47 13:47 14:42 RBC 4.24 L PT 16.0 H APTT 36.9 H Chloride 108 H Creatine Kinase 41 L Total Protein 6.1 L - EKG Interpretation by Me Additional EKG results interpreted by me: 08/04/16 14:30 Atrioventricular dual paced rhythm. No clear ischemia. (LYNSEYJAZ Jesus Manuel) Discharge <KODI MENDEZ - Last Filed: 08/04/16 14:46> <LYNSEYJAZ - Last Filed: 08/04/16 16:11> - Discharge Clinical Impression: Weakness following cerebrovascular accident (CVA) Condition: Good Disposition: HOME, SELF-CARE Additional Instructions: Please ensure you are continuing your aspirin and Eliquis. Return for worsening otherwise. I reviewed the patient's workup from prior. At this point his symptoms are almost resolved and his workup had been maximized as an inpatient. He would like to go home. He does understand risk of CVA. He agrees to continue his blood thinners. Referrals: DELFINO ACOSTA PA-C [Primary Care Provider] - Follow up in 3-5 days Scribe Documentation - Scribe Written by Femi:: Kodi Mendez 08/04/16 14:50 acting as scribe for :: Lynsey <KODI MENDEZ - Last Filed: 08/04/16 14:46>
[2016-08-04 13:57] LABS: ABSOLUTE BASOPHILS # (AUTO) 0.1 10^3/uL (0.0-0.2); ABSOLUTE EOSINOPHILS # (AUTO) 0.4 10^3/uL (0.0-0.6); ABSOLUTE LYMPHOCYTES (AUTO) 1.4 10^3/uL (0.5-4.7); ABSOLUTE MONOCYTES (AUTO) 0.6 10^3/uL (0.1-1.4); ABSOLUTE NEUT (AUTO) 4.9 10^3/uL (1.7-8.2); BASOPHILS % (AUTO) 1.1 % (0-2); EOSINOPHILS % (AUTO) 5.7 % (0-6); HEMATOCRIT 40.6 % (37.9-51.0); HEMOGLOBIN 13.9 g/dL (13.5-17.0); HGB HCT DIFFERENCE 1.1; LYMPHOCYTES % (AUTO) 19.3 % (13-45); MEAN CORPUSCULAR HEMOGLOBIN 32.8 pg (27.0-33.4); MEAN CORPUSCULAR HGB CONC 34.3 g/dL (32.0-36.0); MEAN CORPUSCULAR VOLUME 96 fl (80-97); MONOCYTES % (AUTO) 8.6 % (3-13); RED BLOOD COUNT 4.24 10^6/uL (4.35-5.55); RED CELL DISTRIBUTION WIDTH 13.5 % (11.5-14.0); SEGMENTED NEUTROPHILS % (AUTO) 65.3 % (42-78); WHITE BLOOD COUNT 7.5 10^3/uL (4.0-10.5)
[2016-08-04 14:01] LABS: PARTIAL THROMBOPLASTIN TIME 36.9 SEC (23.5-35.8)
[2016-08-04 15:29] LABS: ALANINE AMINOTRANSFERASE 45 U/L (21-72); ALBUMIN 3.6 g/dL (3.5-5.0); ALKALINE PHOSPHATASE 53 U/L (38-126); ANION GAP 8 (5-19); ASPARTATE AMINO TRANSFERASE 34 U/L (17-59); BILIRUBIN,DIRECT 0.1 mg/dL (0.0-0.4); BILIRUBIN,TOTAL 0.4 mg/dL (0.2-1.3); BLOOD UREA NITROGEN 15 mg/dL (7-20); CALCIUM 9.3 mg/dL (8.4-10.2); CARBON DIOXIDE 27 mmol/L (22-30); CHLORIDE 108 mmol/L (98-107); CREATINE KINASE 41 U/L (55-170); CREATININE RESULT 1.12 mg/dL (0.52-1.25); GLUCOSE 76 mg/dL (75-110); POTASSIUM 4.7 mmol/L (3.6-5.0); SODIUM 142.8 mmol/L (137-145); TOTAL PROTEIN 6.1 g/dL (6.3-8.2)
[2016-08-04 15:48] LABS: CREATINE KINASE MB 0.78 ng/mL (<4.55); TROPONIN I < 0.012 ng/mL
[2016-08-04 16:42] VITALS: BP 116/71
--- NOTE | 2016-08-04 22:24 | EKG REPORT ---
SEVERITY:- ABNORMAL ECG - ATRIAL-VENTRICULAR DUAL-PACED RHYTHM : Confirmed by: Yasmin Mendez MD 04-Aug-2016 22:23:46
== END 2016-08-04 16:43 | disposition home or self-care (01) ==
LOC: ER 12:35
DX: I69.954 Hemiplegia and hemiparesis following unspecified cerebrovascular disease affecting left non-dominant side (principal); M79.1 Myalgia; R51 Headache; E78.00 Pure hypercholesterolemia, unspecified; J44.9 Chronic obstructive pulmonary disease, unspecified; I48.91 Unspecified atrial fibrillation; E03.9 Hypothyroidism, unspecified; F17.200 Nicotine dependence, unspecified, uncomplicated; Z95.0 Presence of cardiac pacemaker; Z79.02 Long term (current) use of antithrombotics/antiplatelets
CPT/HCPCS: 36415; 70450; 71010; 80053; 82550; 82553; 84484; 85025; 85610; 85730; 93005; 93010; 99284

== ENCOUNTER 2016-08-26 12:48 | Observation (INO) | payer MEDICARE, MEDICAID ==
[2016-08-26] MEDS ORDERED: NORMAL SALINE 500 ML IV ONE ×2 (14:04→14:36)
[2016-08-26 14:21] LABS: PROTHROMBIN TIME 16.1 SEC (11.4-15.4)
[2016-08-26 14:23] LABS: ABSOLUTE BASOPHILS # (AUTO) 0.1 10^3/uL (0.0-0.2); ABSOLUTE EOSINOPHILS # (AUTO) 0.4 10^3/uL (0.0-0.6); ABSOLUTE LYMPHOCYTES (AUTO) 1.5 10^3/uL (0.5-4.7); ABSOLUTE MONOCYTES (AUTO) 0.7 10^3/uL (0.1-1.4); ABSOLUTE NEUT (AUTO) 3.9 10^3/uL (1.7-8.2); EOSINOPHILS % (AUTO) 6.6 % (0-6); HEMATOCRIT 34.3 % (37.9-51.0); HEMOGLOBIN 11.8 g/dL (13.5-17.0); HGB HCT DIFFERENCE 1.1; LYMPHOCYTES % (AUTO) 22.8 % (13-45); MEAN CORPUSCULAR HEMOGLOBIN 32.9 pg (27.0-33.4); MEAN CORPUSCULAR HGB CONC 34.3 g/dL (32.0-36.0); MEAN CORPUSCULAR VOLUME 96 fl (80-97); MONOCYTES % (AUTO) 10.2 % (3-13); RED BLOOD COUNT 3.58 10^6/uL (4.35-5.55); RED CELL DISTRIBUTION WIDTH 13.6 % (11.5-14.0); SEGMENTED NEUTROPHILS % (AUTO) 59.4 % (42-78); WHITE BLOOD COUNT 6.5 10^3/uL (4.0-10.5)
[2016-08-26 14:50] LABS: ALANINE AMINOTRANSFERASE 39 U/L (21-72); ALBUMIN 3.3 g/dL (3.5-5.0); ALKALINE PHOSPHATASE 53 U/L (38-126); ANION GAP 10 (5-19); ASPARTATE AMINO TRANSFERASE 32 U/L (17-59); BILIRUBIN,DIRECT 0.3 mg/dL (0.0-0.4); BILIRUBIN,TOTAL 0.5 mg/dL (0.2-1.3); BLOOD UREA NITROGEN 21 mg/dL (7-20); CALCIUM 8.5 mg/dL (8.4-10.2); CARBON DIOXIDE 24 mmol/L (22-30); CHLORIDE 111 mmol/L (98-107); CREATINE KINASE 42 U/L (55-170); CREATININE RESULT 1.33 mg/dL (0.52-1.25); GLUCOSE 86 mg/dL (75-110); POTASSIUM 4.3 mmol/L (3.6-5.0); SODIUM 144.9 mmol/L (137-145)
--- NOTE | 2016-08-26 14:57 | ER Document Report ---
ED General - General Chief Complaint: Chest Pain Stated Complaint: CHEST PAIN Mode of Arrival: Medic Information source: Patient, H Records Notes: This is a 70-year-old male with multiple medical problems who presents via EMS for chest pain. He states that he felt well upon awakening this morning but at about 10 AM he developed some substernal chest discomfort that radiated down his left upper extremity. He also had some shortness of breath. He denies any nausea vomiting or diaphoresis. He states that off and on today his left arm and left leg felt somewhat weak which is very similar to his presentation for CVA in the past. Cannot give me a good time frame for this as the symptoms appear to come and go. He did receive 3 sublingual nitroglycerin in route by EMS as well as aspirin. He has a history of atrial fibrillation and has a pacemaker and is currently on Eliquis and aspirin and reports compliance. Current chest discomfort is 3/10. He is unsure of his last stress test. Primary care physician is Marily Acosta. TRAVEL OUTSIDE OF THE [place] IN LAST 30 DAYS: No - Related Data Allergies/Adverse Reactions: No Known Allergies Allergy (Verified 07/31/16 13:26) Past Medical History - Social History Smoking Status: Former Smoker Chew tobacco use (# tins/day): No Frequency of alcohol use: None Drug Abuse: None Family History: CAD - Father - Past Medical History Cardiac Medical History: Reports: Hx Atrial Fibrillation, Hx Hypercholesterolemia, Hx Hypertension Denies: Hx Congestive Heart Failure, Hx Coronary Artery Disease, Hx Heart Attack, Hx Peripheral Vascular Disease, Hx Pulmonary Embolism, Hx Heart Murmur Pulmonary Medical History: Reports: Hx COPD, Hx Pneumonia Denies: Hx Asthma, Hx Bronchitis, Hx Respiratory Failure, Hx Sleep Apnea, Hx Tuberculosis Neurological Medical History: Reports: Hx Cerebrovascular Accident, Hx Migraine. Denies: Hx Seizures Endocrine Medical History: Reports: Hx Hypothyroidism Renal/ Medical History: Denies: Hx Peritoneal Dialysis Malignancy Medical History: Denies Hx Lung Cancer GI Medical History: Reports: Hx Gastroesophageal Reflux Disease, Hx Ulcer. Denies: Hx Crohn's Disease, Hx Hiatal Hernia, Hx Irritable Bowel, Hx Liver Failure Musculoskeltal Medical History: Reports Hx Arthritis, Denies Hx Fibromyalgia, Denies Hx Muscular Dystrophy Psychiatric Medical History: Denies: Hx Depression Traumatic Medical History: Reports: Hx Fractures Past Surgical History: Reports: Hx Abdominal Surgery - hernia, ulcer, Hx Appendectomy, Hx Cardiac Surgery - pacemaker, Hx Herniorrhaphy, Hx Pacemaker - meditronic, ventricular, Other - Partial gastric resection secondary to ulcer. Denies: Hx Cardiac Catheterization, Hx Colostomy, Hx Coronary Stent - Immunizations Hx Diphtheria, Pertussis, Tetanus Vaccination: No - unknown Hx Pneumococcal Vaccination: 02/28/10 Review of Systems - Review of Systems Constitutional: denies: Chills, Fever EENT: No symptoms reported Cardiovascular: See HPI Respiratory: See HPI. denies: Hurts to breathe Gastrointestinal: No symptoms reported. denies: Abdominal pain, Nausea, Vomiting Genitourinary: denies: No symptoms reported Musculoskeletal: No symptoms reported Skin: No symptoms reported Hematologic/Lymphatic: No symptoms reported Neurological/Psychological: No symptoms reported Physical Exam - Vital signs Vitals: Resp Pulse Ox 15 91 L 08/26/16 13:09 08/26/16 13:09 - General General appearance: Appears well, Alert In distress: None - HEENT Head: Normocephalic, Atraumatic Eyes: Normal Conjunctiva: Normal Mucous membranes: Moist Neck: Normal. No: Lymphadenopathy - Respiratory Respiratory status: No respiratory distress Chest status: Nontender Breath sounds: Normal - Cardiovascular Rhythm: Regular Heart sounds: Normal auscultation, S1 appreciated, S2 appreciated Murmur: No - Abdominal Inspection: Normal Distension: No distension Bowel sounds: Normal Tenderness: Nontender Organomegaly: No organomegaly - Back Back: Normal - Extremities General upper extremity: Normal inspection General lower extremity: Normal inspection - Neurological Cognition: Normal Orientation: AAOx4 Notes: Alert and oriented x4, speech normal, CN intact bilaterally. Motor strength +4/ 5 left upper and left lower extremities. Sensation grossly intact. Course - Re-evaluation Re-evalutation: Patient had improvement in chest discomfort with 3 NTG enroute by EMS. First troponin negative. Will discuss with hospitalist for admission for obs and cardiac rule out. Patient and family are comfortable with this plan. - Vital Signs Vital signs: Temp Pulse Resp BP Pulse Ox 97.5 F 61 18 102/50 L 99 08/26/16 23:24 08/26/16 23:24 08/26/16 23:24 08/26/16 23:24 08/26/16 23:24 - Laboratory Result Diagrams: 08/26/16 13:50 08/26/16 13:50 Laboratory results interpreted by me: 08/26/16 08/26/16 08/26/16 13:50 13:50 13:50 RBC 3.58 L Hgb 11.8 L Hct 34.3 L Eosinophils % 6.6 H PT 16.1 H Chloride 111 H BUN 21 H Creatinine 1.33 H Est GFR (Non-Af Amer) 53 L Creatine Kinase 42 L Total Protein 6.0 L Albumin 3.3 L Discharge - Discharge Clinical Impression: Chest pain Qualifiers: Chest pain type: unspecified Qualified Code(s): R07.9 - Chest pain, unspecified Condition: Stable Disposition: ADMITTED OBSERVATION Admitting Provider: Hospitalist Unit Admitted: Telemetry - Dr. Rinaldi
[2016-08-26 14:58] LABS: CREATINE KINASE MB 1.24 ng/mL (<4.55)
[2016-08-26 15:00] LABS: TROPONIN I < 0.012 ng/mL
[2016-08-26] MEDS ORDERED: ACETAMINOPHEN 325 MG TABLET PO PRN (17:07)
[2016-08-26] MEDS ORDERED: IPRATROPIUM/ALBUTEROL 0.5-2.5 MG/3 ML AMPUL NEB PRN (17:07)
--- NOTE | 2016-08-26 17:19 | PDOC H&P ---
History of Present Illness Admission Date/PCP: 08/26/16 16:42 Patient complains of: Chest pain History of Present Illness: LIONEL ACEVEDO is a 70 year old male who is known to me from previous admissions who presents with chest pain. Patient reports that since 10:00 this morning he had substernal chest pain that he describes as a pressure. He reports it radiates down into his left arm and also has had pain in his left leg. Patient was here about 3 weeks ago with an acute CVA with worsening of his left-sided weakness. Patient has been compliant with his aspirin and his Eliquis. Patient reports that the pain was initially 7 out of 10 and he was given nitroglycerin glycerin with minimal change. He denies any nausea vomiting or diaphoresis. He denies any palpitations or tachycardia. Patient has a pacemaker in place that is functioning. Patient denies any orthopnea or PND. He reports that the pain was not made worse with walking. There is no change with position. It is not reproducible palpation. He has no previous history of coronary artery disease. Past Medical History Cardiac Medical History: Reports: Atrial Fibrillation, Hyperlipidema, Hypertension Denies: Congestive Heart Failure, Coronary Artery Disease, Myocardial Infarction, Peripheral Vascular Disease, Pulmonary Embolism, Heart Murmur Pulmonary Medical History: Reports: Chronic Obstructive Pulmonary Disease (COPD) , Pneumonia Denies: Asthma, Bronchitis, Respiratory Failure, Sleep Apnea, Tuberculosis Neurological Medical History: Reports: Migraine Endocrine Medical History: Reports: Hypothyroidism Malignancy Medical History: Denies: Lung Cancer GI Medical History: Reports: Gastroesophageal Reflux Disease Denies: Crohn's Disease, Hiatal Hernia Musculoskeltal Medical History: Reports: Arthritis Denies: Fibromyalgia Psychiatric Medical History: Denies: Depression Past Surgical History Past Surgical History: Reports: Appendectomy, Herniorrhaphy, Pacemaker - meditronic, ventricular, Other - Partial gastric resection secondary to ulcer Denies: Cardiac Catheterization, Colostomy, Coronary Stent Social History Information Source: Patient Lives with: Family Smoking Status: Former Smoker Frequency of Alcohol Use: None Hx Recreational Drug Use: No Drugs: None Hx Prescription Drug Abuse: No - Advance Directive Resuscitation Status: Full Code Family History Family History: CAD - Father Parental Family History Reviewed: Yes Children Family History Reviewed: No Sibling(s) Family History Reviewed.: No Medication/Allergy Home Medications: Acetaminophen [Tylenol 325 mg Tablet] 650 mg PO Q4HP PRN 07/31/16 Amiodarone HCl [Cordarone 200 mg Tablet] 200 mg PO DAILY 07/31/16 Apixaban [Eliquis 5 mg Tablet] 5 mg PO BID 07/31/16 Aspirin [Aspirin EC] 81 mg PO DAILY 07/31/16 Levothyroxine Sodium [Synthroid] 50 mcg PO DAILY 07/31/16 Metoprolol Succinate [Toprol Xl 25 mg Tab.sr] 25 mg PO DAILY 07/31/16 Pantoprazole Sodium [Protonix] 40 mg PO DAILY 07/31/16 Potassium Chloride 10 meq PO DAILY 07/31/16 Simvastatin [Zocor 20 mg Tablet] 20 mg PO QHS 07/31/16 Tiotropium [place] [Spiriva Handihaler 5 Cap/Kit (18 Mcg/Cap)] 1 cap IH DAILY Allergies/Adverse Reactions: No Known Allergies Allergy (Verified 07/31/16 13:26) Review of Systems Constitutional: ABSENT: chills, fever(s), headache(s), weight gain, weight loss Eyes: ABSENT: visual disturbances Ears: ABSENT: hearing changes Cardiovascular: PRESENT: as per HPI Respiratory: ABSENT: cough, hemoptysis Gastrointestinal: ABSENT: abdominal pain, constipation, diarrhea, hematemesis, hematochezia, nausea, vomiting Genitourinary: ABSENT: dysuria, hematuria Musculoskeletal: ABSENT: joint swelling Integumentary: ABSENT: rash, wounds Neurological: PRESENT: weakness - Left-sided weakness Psychiatric: ABSENT: anxiety, depression Endocrine: ABSENT: cold intolerance, heat intolerance, polydipsia, polyuria Hematologic/Lymphatic: ABSENT: easy bleeding, easy bruising Physical Exam Vital Signs: Temp Pulse Resp BP Pulse Ox 98.1 F 9 L 132/74 H 100 08/26/16 14:01 08/26/16 16:00 08/26/16 16:01 08/26/16 16:01 General appearance: PRESENT: no acute distress, well-developed, well-nourished Head exam: PRESENT: atraumatic, normocephalic Eye exam: PRESENT: conjunctiva pink, EOMI, PERRLA. ABSENT: scleral icterus Ear exam: PRESENT: normal external ear exam Mouth exam: PRESENT: moist, tongue midline Neck exam: ABSENT: carotid bruit, JVD, lymphadenopathy, thyromegaly Respiratory exam: PRESENT: clear to auscultation corine. ABSENT: rales, rhonchi, wheezes Cardiovascular exam: PRESENT: RRR. ABSENT: diastolic murmur, rubs, systolic murmur Pulses: PRESENT: normal dorsalis pedis pul Vascular exam: PRESENT: normal capillary refill GI/Abdominal exam: PRESENT: normal bowel sounds, soft. ABSENT: distended, guarding, mass, organolmegaly, rebound, tenderness Rectal exam: PRESENT: deferred Extremities exam: ABSENT: calf tenderness, clubbing, pedal edema Neurological exam: PRESENT: alert, awake, oriented to person, oriented to place , oriented to time, oriented to situation, CN II-XII grossly intact, motor sensory deficit - Strength is 4 out of 5 in the left upper and lower extremity. Psychiatric exam: PRESENT: appropriate affect Skin exam: PRESENT: dry, intact, warm. ABSENT: cyanosis, rash Results Impressions: Chest X-Ray 08/26/16 13:11 IMPRESSION: NO SIGNIFICANT RADIOGRAPHIC FINDING IN THE CHEST. Head CT 08/26/16 13:46 IMPRESSION: No acute intracranial abnormality. Assessment & Plan - Diagnosis (1) Chest pain Qualifiers: Chest pain type: unspecified Qualified Code(s): R07.9 - Chest pain, unspecified Is this a current diagnosis for this admission?: YesPlan: The patient's chest pain is atypical. He reports it goes down both his left arm and left leg. It is nonexertional. We will continue with aspirin and beta blockers. We'll check serial cardiac enzymes. (2) Hypercholesterolemia Is this a current diagnosis for this admission?: Yes (3) Hypertension Is this a current diagnosis for this admission?: YesPlan: We'll continue with his outpatient oral antihypertensives. (4) Hypothyroid Is this a current diagnosis for this admission?: YesPlan: Continue Synthroid. (5) Afib Qualifiers: Atrial fibrillation type: unspecified Qualified Code(s): I48.91 - Unspecified atrial fibrillation Is this a current diagnosis for this admission?: YesPlan: Patient is rate controlled with a paced rhythm. Continue with Eliquis and amiodarone. - Time Time Spent: 50 to 70 Minutes - Plan Summary Plan Summary: We'll admit as observation as I anticipate this will require less than a 2 midnight hospital stay.
[2016-08-26 20:35] LABS: CREATINE KINASE MB 1.01 ng/mL (<4.55)
[2016-08-26 20:40] LABS: TROPONIN I < 0.012 ng/mL
[2016-08-26] MEDS ORDERED: APIXABAN 5 MG TABLET ONE (20:56)
[2016-08-26] MEDS: APIXABAN 5 MG TABLET PO SCH (21:46)
[2016-08-26] MEDS ORDERED: SIMVASTATIN 10 MG TABLET PO SCH (22:00)
[2016-08-27 02:36] LABS: CREATINE KINASE MB 0.88 ng/mL (<4.55)
[2016-08-27 02:42] LABS: TROPONIN I < 0.012 ng/mL
[2016-08-27 08:28] LABS: HEMATOCRIT 40.9 % (37.9-51.0); HEMOGLOBIN 13.7 g/dL (13.5-17.0); HGB HCT DIFFERENCE 0.2; MEAN CORPUSCULAR HEMOGLOBIN 32.3 pg (27.0-33.4); MEAN CORPUSCULAR HGB CONC 33.5 g/dL (32.0-36.0); MEAN CORPUSCULAR VOLUME 96 fl (80-97); RED BLOOD COUNT 4.24 10^6/uL (4.35-5.55); RED CELL DISTRIBUTION WIDTH 13.7 % (11.5-14.0)
[2016-08-27 08:54] LABS: ANION GAP 11 (5-19); BLOOD UREA NITROGEN 17 mg/dL (7-20); CALCIUM 8.8 mg/dL (8.4-10.2); CARBON DIOXIDE 26 mmol/L (22-30); CHLORIDE 108 mmol/L (98-107); CREATINE KINASE 39 U/L (55-170); CREATININE RESULT 1.06 mg/dL (0.52-1.25); GLUCOSE 82 mg/dL (75-110); MAGNESIUM 2.2 mg/dL (1.6-2.3); POTASSIUM 4.6 mmol/L (3.6-5.0); SODIUM 145.1 mmol/L (137-145)
[2016-08-27 09:04] LABS: CREATINE KINASE MB 0.83 ng/mL (<4.55)
[2016-08-27] MEDS: APIXABAN 5 MG TABLET PO SCH (09:04)
[2016-08-27 09:07] LABS: TROPONIN I < 0.012 ng/mL
[2016-08-27] MEDS ORDERED: LANSOPRAZOLE 30 MG TAB.RAP.DR PO SCH (10:00)
[2016-08-27] MEDS ORDERED: AMIODARONE HCL 200 MG TABLET PO SCH (10:00)
[2016-08-27] MEDS ORDERED: ASPIRIN 81 MG TABLET, ENT COATED PO SCH (10:00)
[2016-08-27] MEDS ORDERED: METOPROLOL SUCCINATE 25 MG TAB.SR.24H PO SCH (10:00)
[2016-08-27] MEDS ORDERED: POTASSIUM CHLORIDE 10 MEQ TABLET.SA PO SCH (10:00)
[2016-08-27] MEDS ORDERED: TIOTROPIUM BROMIDE DPI 5 CAP/KIT (18 MCG/CAP) IH SCH (10:00)
[2016-08-27] MEDS ORDERED: LEVOTHYROXINE SODIUM 0.05 MG TABLET PO SCH (10:00)
--- NOTE | 2016-08-27 10:06 | EKG REPORT ---
SEVERITY:- ABNORMAL ECG - A-V DUAL-PACED RHYTHM WITH SOME INHIBITION : Confirmed by: Yu Waller 27-Aug-2016 10:05:37
--- NOTE | 2016-08-27 10:06 | EKG REPORT ---
SEVERITY:- ABNORMAL ECG - ATRIAL-PACED RHYTHM : Confirmed by: Yu Waller 27-Aug-2016 10:05:50
[2016-08-27 10:55] VITALS: BP 114/63
--- NOTE | 2016-08-27 12:48 | PDOC DISCHARGE SUMMARY ---
General - Admit/Disc Date/PCP Admission Date/Primary Care Provider: 08/26/16 17:07 Discharge Date: 08/27/16 - Discharge Diagnosis (1) Chest pain Is this a current diagnosis for this admission?: YesSummary: Most likely musculoskeletal in nature. Negative cardiac enzymes. (2) Hypercholesterolemia Is this a current diagnosis for this admission?: Yes (3) Hypertension Is this a current diagnosis for this admission?: Yes (4) Hypothyroid Is this a current diagnosis for this admission?: Yes (5) Afib Is this a current diagnosis for this admission?: Yes - Additional Information Resuscitation Status: Full Code Discharge Diet: Cardiac Discharge Activity: Activity As Tolerated Home Medications: Acetaminophen [Tylenol 325 mg Tablet] 650 mg PO Q4HP PRN 07/31/16 Amiodarone HCl [Cordarone 200 mg Tablet] 200 mg PO DAILY 07/31/16 Apixaban [Eliquis 5 mg Tablet] 5 mg PO BID 07/31/16 Aspirin [Aspirin EC] 81 mg PO DAILY 07/31/16 Levothyroxine Sodium [Synthroid] 50 mcg PO DAILY 07/31/16 Metoprolol Succinate [Toprol Xl 25 mg Tab.sr] 25 mg PO DAILY 07/31/16 Pantoprazole Sodium [Protonix] 40 mg PO DAILY 07/31/16 Potassium Chloride 10 meq PO DAILY 07/31/16 Simvastatin [Zocor 20 mg Tablet] 20 mg PO QHS 07/31/16 Tiotropium [place] [Spiriva Handihaler 5 Cap/Kit (18 Mcg/Cap)] 1 cap IH DAILY History of Present Illness History of Present Illness: LIONEL ACEVEDO is a 70 year old male who is known to me from previous admissions who presents with chest pain. Patient reports that since 10:00 this morning he had substernal chest pain that he describes as a pressure. He reports it radiates down into his left arm and also has had pain in his left leg. Patient was here about 3 weeks ago with an acute CVA with worsening of his left-sided weakness. Patient has been compliant with his aspirin and his Eliquis. Patient reports that the pain was initially 7 out of 10 and he was given nitroglycerin glycerin with minimal change. He denies any nausea vomiting or diaphoresis. He denies any palpitations or tachycardia. Patient has a pacemaker in place that is functioning. Patient denies any orthopnea or PND. He reports that the pain was not made worse with walking. There is no change with position. It is not reproducible palpation. He has no previous history of coronary artery disease. Hospital Course Hospital Course: 70-year-old gentleman who presented with atypical chest pain. He reports that it hurt his left chest and radiate down his left arm as well as into his left leg. Patient had a stroke on the left side about 3 weeks prior to this admission. Patient was monitored on telemetry and had no further chest pain and had normal cardiac enzymes. It's felt that this may be either neurological or musculoskeletal in nature and patient was given reassurance. He is to continue with his aspirin as he has been doing. His other problems all were stable during this hospitalization. Physical Exam Vital Signs: Temp Pulse Resp BP Pulse Ox 97.5 F 61 16 114/63 100 08/27/16 10:49 08/27/16 10:49 08/27/16 10:49 08/27/16 10:49 08/27/16 10:49 Intake & Output 08/26/16 08/27/16 08/28/16 06:59 06:59 06:59 Weight 67.9 kg General appearance: PRESENT: no acute distress Eye exam: PRESENT: conjunctiva pink. ABSENT: scleral icterus Mouth exam: PRESENT: moist, tongue midline Neck exam: ABSENT: JVD Respiratory exam: PRESENT: clear to auscultation corine. ABSENT: rales, rhonchi, wheezes Cardiovascular exam: PRESENT: RRR. ABSENT: diastolic murmur, rubs, systolic murmur GI/Abdominal exam: PRESENT: normal bowel sounds, soft. ABSENT: distended, guarding, mass, organolmegaly, rebound, tenderness Extremities exam: ABSENT: calf tenderness, clubbing, pedal edema Neurological exam: PRESENT: alert, awake, oriented to person, oriented to place , oriented to time, oriented to situation, CN II-XII grossly intact, motor sensory deficit - 4 out of 5 strength on the left upper and lower extremity. Psychiatric exam: PRESENT: appropriate affect Skin exam: PRESENT: dry, intact, warm. ABSENT: cyanosis, rash Results Laboratory Results: 08/27/16 08:02 08/27/16 08:02 08/27/16 08/27/16 08:02 08:02 WBC 8.0 RBC 4.24 L Hgb 13.7 Hct 40.9 MCV 96 MCH 32.3 MCHC 33.5 RDW 13.7 Plt Count 206 Sodium 145.1 H Potassium 4.6 Chloride 108 H Carbon Dioxide 26 Anion Gap 11 BUN 17 Creatinine 1.06 Est GFR ( Amer) > 60 Est GFR (Non-Af Amer) > 60 Glucose 82 Calcium 8.8 Magnesium 2.2 08/26/16 08/26/16 08/27/16 19:20 19:20 01:28 Creatine Kinase 42 L 43 L CK-MB (CK-2) 1.01 Troponin I < 0.012 08/27/16 08/27/16 08/27/16 01:28 08:02 08:02 Creatine Kinase 39 L CK-MB (CK-2) 0.88 0.83 Troponin I < 0.012 < 0.012 Impressions: Chest X-Ray 08/26/16 13:11 IMPRESSION: NO SIGNIFICANT RADIOGRAPHIC FINDING IN THE CHEST. Head CT 08/26/16 13:46 IMPRESSION: No acute intracranial abnormality. Qualifiers PATEINT BEING DISCHARGED WITH ANY OF THE FOLLOWING DIAGNOSIS?: No Plan Discharge Plan: Patient will follow up with primary care in 1-2 weeks. Time Spent: Less than 30 Minutes
== END 2016-08-27 11:38 | disposition home or self-care (01) ==
LOC: ER 12:48 → EH 16:42 → UNDOADMOB 16:42 → EH 17:07 → 5 21:37
PROVIDERS: ADMIT Internal Medicine; ATTEND Internal Medicine
DX: R07.89 Other chest pain (principal); E78.00 Pure hypercholesterolemia, unspecified; I10 Essential (primary) hypertension; E03.9 Hypothyroidism, unspecified; I48.91 Unspecified atrial fibrillation; M79.605 Pain in left leg; M19.90 Unspecified osteoarthritis, unspecified site; I69.354 Hemiplegia and hemiparesis following cerebral infarction affecting left non-dominant side; Z79.82 Long term (current) use of aspirin; Z79.899 Other long term (current) drug therapy; Z79.02 Long term (current) use of antithrombotics/antiplatelets; Z95.0 Presence of cardiac pacemaker; Z90.3 Acquired absence of stomach [part of]; Z87.11 Personal history of peptic ulcer disease; Z87.891 Personal history of nicotine dependence; Z90.49 Acquired absence of other specified parts of digestive tract; Z82.49 Family history of ischemic heart disease and other diseases of the circulatory system
CPT/HCPCS: 93005; 99285; 36415 ×2; 82553 ×2; 82550 ×2; 83735; 85025; 85027; 85610; 80048; 80053; 84484 ×2; 71010; 70450; 93010; G0378 ×3; A9270 ×9; J3490; J7040

== ENCOUNTER 2016-09-20 11:37 | Emergency (ER) | payer MEDICARE, MEDICAID ==
[2016-09-20] MEDS ORDERED: ACETAMINOPHEN 325 MG TABLET PO ONE (12:25)
--- NOTE | 2016-09-20 12:32 | ER Document Report ---
ED Medical Screen (RME) - General Chief Complaint: Flank Pain Stated Complaint: LEFT FLANK PAIN Time Seen by Provider: 09/20/16 12:25 Notes: Patient says that he has been having pain in his left flank which started yesterday when he was working in the yard. He was bending and lifting things, but does not remember straining his side. It is painful constantly but worse when he moves. He did have a kidney infection once several years ago that had similar symptoms. Denies any nausea or vomiting. Last bowel movement was yesterday. Denies any abdominal pains. Has never been told he had an aneurysm , etc. Denies chest pain. Denies any fevers. TRAVEL OUTSIDE OF THE [place] IN LAST 30 DAYS: No - Related Data Allergies/Adverse Reactions: No Known Allergies Allergy (Verified 09/20/16 11:53) Past Medical History - Social History Family history: Reviewed & Not Pertinent - Past Medical History Cardiac Medical History: Reports: Hx Atrial Fibrillation, Hx Hypercholesterolemia, Hx Hypertension Denies: Hx Congestive Heart Failure, Hx Coronary Artery Disease, Hx Heart Attack, Hx Peripheral Vascular Disease, Hx Pulmonary Embolism, Hx Heart Murmur Pulmonary Medical History: Reports: Hx COPD, Hx Pneumonia Denies: Hx Asthma, Hx Bronchitis, Hx Respiratory Failure, Hx Sleep Apnea, Hx Tuberculosis Neurological Medical History: Reports: Hx Cerebrovascular Accident, Hx Migraine. Denies: Hx Seizures Endocrine Medical History: Reports: Hx Hypothyroidism Renal/ Medical History: Denies: Hx Peritoneal Dialysis Malignancy Medical History: Denies Hx Lung Cancer GI Medical History: Reports: Hx Gastroesophageal Reflux Disease, Hx Ulcer. Denies: Hx Crohn's Disease, Hx Hiatal Hernia, Hx Irritable Bowel, Hx Liver Failure Musculoskeltal Medical History: Reports Hx Arthritis, Denies Hx Fibromyalgia, Denies Hx Muscular Dystrophy Psychiatric Medical History: Denies: Hx Depression Traumatic Medical History: Reports: Hx Fractures Past Surgical History: Reports: Hx Abdominal Surgery - hernia, ulcer, Hx Appendectomy, Hx Cardiac Surgery - pacemaker, Hx Herniorrhaphy, Hx Pacemaker - meditronic, ventricular, Other - Partial gastric resection secondary to ulcer. Denies: Hx Cardiac Catheterization, Hx Colostomy, Hx Coronary Stent - Immunizations Hx Diphtheria, Pertussis, Tetanus Vaccination: No - unknown Physical Exam - Vital signs Vitals: Temp Pulse Resp BP Pulse Ox 97.8 F 68 18 118/77 98 09/20/16 11:53 09/20/16 11:53 09/20/16 11:53 09/20/16 11:53 09/20/16 11:53 Course - Vital Signs Vital signs: Temp Pulse Resp BP Pulse Ox 97.8 F 68 18 118/77 98 09/20/16 11:53 09/20/16 11:53 09/20/16 11:53 09/20/16 11:53 09/20/16 11:53
--- NOTE | 2016-09-20 12:57 | ER Document Report ---
ED GI/ - General Mode of Arrival: Ambulatory Information source: Patient TRAVEL OUTSIDE OF THE [place] IN LAST 30 DAYS: No - HPI Patient complains to provider of: Flank pain - left Onset: Yesterday Timing/Duration: Gradual <MIN JONES - Last Filed: 09/20/16 15:25> <DOLORESJERSON ANN - Last Filed: 09/20/16 17:25> - General Chief Complaint: Flank Pain Stated Complaint: LEFT FLANK PAIN Time Seen by Provider: 09/20/16 12:25 Notes: Patient is a 70-year-old male who presents to the emergency department today with complaints of left-sided flank pain. Patient states that he was "pulling grass" over the last couple days as well as today and he has noticed that certain movements seem to cause his pain to become worse. Patient states the pain began yesterday gradually. Patient states it hurts to move. Patient states he does not have a history of kidney stones. Patient denies any dysuria , vomiting, or fall/trauma to the area. (MIN JONES) - Related Data Allergies/Adverse Reactions: No Known Allergies Allergy (Verified 09/20/16 11:53) Past Medical History - General Information source: Patient - Social History Smoking Status: Unknown if Ever Smoked Frequency of alcohol use: None Drug Abuse: None Lives with: Family Family History: Reviewed & Not Pertinent, CAD - Father Patient has suicidal ideation: No Patient has homicidal ideation: No - Past Medical History Cardiac Medical History: Reports: Hx Atrial Fibrillation, Hx Hypercholesterolemia, Hx Hypertension Pulmonary Medical History: Reports: Hx COPD, Hx Pneumonia Neurological Medical History: Reports: Hx Cerebrovascular Accident, Hx Migraine Endocrine Medical History: Reports: Hx Hypothyroidism GI Medical History: Reports: Hx Gastroesophageal Reflux Disease, Hx Ulcer Musculoskeltal Medical History: Reports Hx Arthritis Traumatic Medical History: Reports: Hx Fractures Past Surgical History: Reports: Hx Abdominal Surgery - hernia, ulcer, Hx Appendectomy, Hx Cardiac Surgery - pacemaker, Hx Herniorrhaphy, Hx Pacemaker - meditronic, ventricular, Other - Partial gastric resection secondary to ulcer - Immunizations Hx Diphtheria, Pertussis, Tetanus Vaccination: No - unknown Hx Pneumococcal Vaccination: 02/28/10 <MIN JONES - Last Filed: 09/20/16 15:25> Review of Systems - Review of Systems Constitutional: No symptoms reported EENT: No symptoms reported Cardiovascular: No symptoms reported Respiratory: No symptoms reported Gastrointestinal: denies: Vomiting Genitourinary: See HPI, Flank pain - Left sided, reproducible and exacerbated with certain movements. denies: Dysuria Male Genitourinary: No symptoms reported Musculoskeletal: No symptoms reported Skin: No symptoms reported Hematologic/Lymphatic: No symptoms reported Neurological/Psychological: No symptoms reported -: Yes All other systems reviewed and negative <MIN JONES - Last Filed: 09/20/16 15:25> Physical Exam - Vital signs Interpretation: Normal - General General appearance: Appears well, Alert - HEENT Head: Normocephalic, Atraumatic Eyes: Normal Pupils: PERRL - Respiratory Respiratory status: No respiratory distress Chest status: Nontender Breath sounds: Normal Chest palpation: Normal - Cardiovascular Rhythm: Regular Heart sounds: Normal auscultation Murmur: No - Abdominal Inspection: Normal Distension: No distension Bowel sounds: Normal Tenderness: Nontender Organomegaly: No organomegaly - Back Back: Normal, Tender - Tenderness to palpation over lumbar paraspinal muscles on the left. SI joint on the left. No buttock tenderness to palpation. No: Deformity/step-off, CVA tenderness, Wounds - Extremities General upper extremity: Normal inspection, Nontender, Normal color, Normal ROM , Normal temperature General lower extremity: Normal inspection, Nontender, Normal color, Normal ROM , Normal temperature, Normal weight bearing. No: Ish's sign - Neurological Neuro grossly intact: Yes Cognition: Normal Orientation: AAOx4 [place] Coma Scale Eye Opening: Spontaneous [place] Coma Scale Verbal: Oriented [place] Com[place] Scale Motor: Obeys Commands [place] Coma Scale Total: 15 Speech: Normal Motor strength normal: LUE, RUE, LLE, RLE Sensory: Normal - Psychological Associated symptoms: Normal affect, Normal mood - Skin Skin Temperature: Warm Skin Moisture: Dry Skin Color: Normal <JERSON BERNAL - Last Filed: 09/20/16 17:25> - Vital signs Vitals: Temp Pulse Resp BP Pulse Ox 97.8 F 68 18 118/77 98 09/20/16 11:53 09/20/16 11:53 09/20/16 11:53 09/20/16 11:53 09/20/16 11:53 Course - Laboratory Result Diagrams: 09/20/16 13:54 09/20/16 13:54 <MIN JONES - Last Filed: 09/20/16 15:25> - Laboratory Result Diagrams: 09/20/16 13:54 09/20/16 13:54 - Diagnostic Test Radiology reviewed: Reports reviewed <JERSON BERNAL - Last Filed: 09/20/16 17:25> - Re-evaluation Re-evalutation: 09/20/16 Patient with noted acute findings on blood work, urine, or x-ray. Patient has been pulling weeds and picking up graft recently. Patient does not want anything stronger than Tylenol for pain. No evidence for any other serious medical problem at this time. Patient is instructed to follow-up with his doctor this week. Understands and agrees with plan. Neurovascularly intact. Grateful for care. (JERSON BERNAL) - Vital Signs Vital signs: Temp Pulse Resp BP Pulse Ox 97.8 F 70 18 120/75 99 09/20/16 11:53 09/20/16 15:25 09/20/16 15:25 09/20/16 15:25 09/20/16 15:25 - Laboratory Laboratory results interpreted by me: 09/20/16 09/20/16 13:54 13:54 RBC 4.10 L Hgb 13.2 L Eosinophils % 6.9 H Chloride 108 H Discharge <MIN JONES - Last Filed: 09/20/16 15:25> <JERSON BERNAL - Last Filed: 09/20/16 17:25> - Discharge Clinical Impression: Lower back injury Qualifiers: Encounter type: initial encounter Qualified Code(s): S39.92XA - Unspecified injury of lower back, initial encounter Condition: Stable Disposition: HOME, SELF-CARE Instructions: Low Back Pain ([facility]), Muscle Strain ([facility]) Referrals: DELFINO BLACKMON PA-C [Primary Care Provider] - Follow up in 3-5 days Scribe Attestation: 09/20/16 17:25 I personally performed the services described in the documentation, reviewed and edited the documentation which was dictated to the scribe in my presence, and it accurately records my words and actions. (JERSON BERNAL) Scribe Documentation - Scribe Written by Scribe:: Femi Islas, 09/20/2016 1531 acting as scribe for :: Dolores <MIN JONES - Last Filed: 09/20/16 15:25>
--- NOTE | 2016-09-20 13:16 | RADIOLOGY REPORT (SQ) ---
EXAM DESCRIPTION: L SPINE WHOLE COMPLETED DATE/TIME: 09/20/2016 1:08 pm REASON FOR STUDY: And left flank region since yesterday. COMPARISON: None. NUMBER OF VIEWS: Five views including obliques. TECHNIQUE: AP, lateral, oblique, and sacral radiographic images acquired of the lumbar spine. LIMITATIONS: None. FINDINGS: MINERALIZATION: Normal. SEGMENTATION: Transitional sacral vertebra. ALIGNMENT: Normal. VERTEBRAE: Maintained height. No fracture or worrisome bone lesion. DISCS: Disc space narrowing with osteophytes throughout. POSTERIOR ELEMENTS: Pedicles and facets are intact. No pars defect or posterior arch defects. HARDWARE: None in the spine. PARASPINAL SOFT TISSUES: Normal. PELVIS: Intact as visualized. No fractures or worrisome bone lesions. SI joints intact. OTHER: No other significant finding. IMPRESSION: DEGENERATIVE DISC DISEASE. NO ACUTE FINDINGS. TECHNICAL DOCUMENTATION: JOB ID: [id number] [employer]- All Rights Reserved
[2016-09-20 13:19] LABS: APPEARANCE,URINE CLEAR; BILIRUBIN,URINE NEGATIVE (NEGATIVE); GLUCOSE, URINE NEGATIVE (NEGATIVE); KETONES,URINE NEGATIVE (NEGATIVE); LEUKOCYTE ESTERASE,URINE NEGATIVE (NEGATIVE); NITRITE,URINE NEGATIVE (NEGATIVE); PROTEIN,URINE NEGATIVE (NEGATIVE); URINE SPECIFIC GRAVITY 1.005; UROBILINOGEN,URINE NEGATIVE mg/dL (<2.0)
[2016-09-20 14:17] LABS: ABSOLUTE BASOPHILS # (AUTO) 0.1 10^3/uL (0.0-0.2); ABSOLUTE EOSINOPHILS # (AUTO) 0.4 10^3/uL (0.0-0.6); ABSOLUTE LYMPHOCYTES (AUTO) 1.4 10^3/uL (0.5-4.7); ABSOLUTE MONOCYTES (AUTO) 0.6 10^3/uL (0.1-1.4); ABSOLUTE NEUT (AUTO) 3.7 10^3/uL (1.7-8.2); BASOPHILS % (AUTO) 1.1 % (0-2); EOSINOPHILS % (AUTO) 6.9 % (0-6); HEMATOCRIT 39.4 % (37.9-51.0); HEMOGLOBIN 13.2 g/dL (13.5-17.0); HGB HCT DIFFERENCE 0.2; LYMPHOCYTES % (AUTO) 22.7 % (13-45); MEAN CORPUSCULAR HEMOGLOBIN 32.2 pg (27.0-33.4); MEAN CORPUSCULAR HGB CONC 33.5 g/dL (32.0-36.0); MEAN CORPUSCULAR VOLUME 96 fl (80-97); MONOCYTES % (AUTO) 9.4 % (3-13); RED CELL DISTRIBUTION WIDTH 13.1 % (11.5-14.0); SEGMENTED NEUTROPHILS % (AUTO) 59.9 % (42-78); WHITE BLOOD COUNT 6.2 10^3/uL (4.0-10.5)
[2016-09-20 14:45] LABS: ALANINE AMINOTRANSFERASE 33 U/L (21-72); ALBUMIN 3.6 g/dL (3.5-5.0); ALKALINE PHOSPHATASE 56 U/L (38-126); ANION GAP 8 (5-19); ASPARTATE AMINO TRANSFERASE 29 U/L (17-59); BILIRUBIN,DIRECT 0.3 mg/dL (0.0-0.4); BILIRUBIN,TOTAL 0.5 mg/dL (0.2-1.3); BLOOD UREA NITROGEN 16 mg/dL (7-20); CALCIUM 8.8 mg/dL (8.4-10.2); CARBON DIOXIDE 26 mmol/L (22-30); CHLORIDE 108 mmol/L (98-107); GLUCOSE 85 mg/dL (75-110); LIPASE 86.7 U/L (23-300); POTASSIUM 4.3 mmol/L (3.6-5.0); SODIUM 141.8 mmol/L (137-145); TOTAL PROTEIN 6.6 g/dL (6.3-8.2)
[2016-09-20 15:26] VITALS: BP 120/75
== END 2016-09-20 15:24 | disposition home or self-care (01) ==
LOC: ER 11:37
DX: S39.92XA Unspecified injury of lower back, initial encounter (principal); R10.9 Unspecified abdominal pain; X50.3XXA Overexertion from repetitive movements, initial encounter; Y93.H2 Activity, gardening and landscaping
CPT/HCPCS: 99284; 36415; 83690; 85025; 80053; 81001; 72110; A9270

== ENCOUNTER 2016-11-08 13:30 | Emergency (ER) | payer MEDICARE, MEDICAID ==
--- NOTE | 2016-11-08 14:29 | ER Document Report ---
ED Medical Screen (RME) - General Chief Complaint: Chest Pain Stated Complaint: CHEST PAIN Time Seen by Provider: 11/08/16 14:28 TRAVEL OUTSIDE OF THE [place] IN LAST 30 DAYS: No - Related Data Allergies/Adverse Reactions: No Known Allergies Allergy (Verified 11/08/16 13:43) Past Medical History - Social History Drug Abuse: None Family history: Reviewed & Not Pertinent - Past Medical History Cardiac Medical History: Reports: Hx Atrial Fibrillation, Hx Hypercholesterolemia, Hx Hypertension Denies: Hx Congestive Heart Failure, Hx Coronary Artery Disease, Hx Heart Attack, Hx Peripheral Vascular Disease, Hx Pulmonary Embolism, Hx Heart Murmur Pulmonary Medical History: Reports: Hx COPD, Hx Pneumonia Denies: Hx Asthma, Hx Bronchitis, Hx Respiratory Failure, Hx Sleep Apnea, Hx Tuberculosis Neurological Medical History: Reports: Hx Cerebrovascular Accident, Hx Migraine. Denies: Hx Seizures Endocrine Medical History: Reports: Hx Hypothyroidism Renal/ Medical History: Denies: Hx Peritoneal Dialysis Malignancy Medical History: Denies Hx Lung Cancer GI Medical History: Reports: Hx Gastroesophageal Reflux Disease, Hx Ulcer. Denies: Hx Crohn's Disease, Hx Hiatal Hernia, Hx Irritable Bowel, Hx Liver Failure Musculoskeltal Medical History: Reports Hx Arthritis, Denies Hx Fibromyalgia, Denies Hx Muscular Dystrophy Psychiatric Medical History: Denies: Hx Depression Traumatic Medical History: Reports: Hx Fractures Past Surgical History: Reports: Hx Abdominal Surgery - hernia, ulcer, Hx Appendectomy, Hx Cardiac Surgery - pacemaker, Hx Herniorrhaphy, Hx Pacemaker - meditronic, ventricular, Other - Partial gastric resection secondary to ulcer. Denies: Hx Cardiac Catheterization, Hx Colostomy, Hx Coronary Stent - Immunizations Hx Diphtheria, Pertussis, Tetanus Vaccination: No - unknown Physical Exam - Vital signs Vitals: Temp Pulse Resp BP Pulse Ox 97.5 F 62 24 H 94/61 L 96 11/08/16 13:44 11/08/16 13:44 11/08/16 13:44 11/08/16 13:44 11/08/16 13:44 Course - Vital Signs Vital signs: Temp Pulse Resp BP Pulse Ox 97.5 F 62 24 H 94/61 L 96 11/08/16 13:44 11/08/16 13:44 11/08/16 13:44 11/08/16 13:44 11/08/16 13:44 - EKG Interpretation by Me EKG shows normal: Sinus rhythm Rate: Normal - 64 Rhythm: Other - paced [place]/QRS: No: Right axis deviation, Left axis deviation Additional EKG results interpreted by me: 11/08/16 14:29 nothing acute
--- NOTE | 2016-11-08 14:36 | ER Document Report ---
ED Medical Screen (RME) - General Chief Complaint: Chest Pain Stated Complaint: CHEST PAIN Time Seen by Provider: 11/08/16 14:28 Mode of Arrival: Ambulatory Information source: Patient, [facility] Records TRAVEL OUTSIDE OF THE [place] IN LAST 30 DAYS: No - HPI Onset: Yesterday Onset/Duration: Gradual, Constant Quality of pain: Dull Associated Symptoms: None Exacerbated by: Denies Relieved by: Denies Recently seen / treated by doctor: Yes Notes: 11/08/16 14:34 The patient is a 70-year-old male with previous cardiac history. He currently has a pacemaker in place. He also has a history of recent CVA. He is on Eliquis. Patient states his doctor took him off aspirin recently. Patient states he has had left-sided chest pain for the last couple of days. No nausea , vomiting, sweats. No fevers or chills. Patient last admitted in July for chest pain with negative workup. 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 At the time of his assessment, he is pain-free. - Related Data Allergies/Adverse Reactions: No Known Allergies Allergy (Verified 11/08/16 13:43) Past Medical History - General Information source: Patient, [facility] Records - Social History Drug Abuse: None Family history: Reviewed & Not Pertinent - Past Medical History Cardiac Medical History: Reports: Hx Atrial Fibrillation, Hx Hypercholesterolemia, Hx Hypertension Denies: Hx Congestive Heart Failure, Hx Coronary Artery Disease, Hx Heart Attack, Hx Peripheral Vascular Disease, Hx Pulmonary Embolism, Hx Heart Murmur Pulmonary Medical History: Reports: Hx COPD, Hx Pneumonia Denies: Hx Asthma, Hx Bronchitis, Hx Respiratory Failure, Hx Sleep Apnea, Hx Tuberculosis Neurological Medical History: Reports: Hx Cerebrovascular Accident, Hx Migraine. Denies: Hx Seizures Endocrine Medical History: Reports: Hx Hypothyroidism Renal/ Medical History: Denies: Hx Peritoneal Dialysis Malignancy Medical History: Denies Hx Lung Cancer GI Medical History: Reports: Hx Gastroesophageal Reflux Disease, Hx Ulcer. Denies: Hx Crohn's Disease, Hx Hiatal Hernia, Hx Irritable Bowel, Hx Liver Failure Musculoskeltal Medical History: Reports Hx Arthritis, Denies Hx Fibromyalgia, Denies Hx Muscular Dystrophy Psychiatric Medical History: Denies: Hx Depression Traumatic Medical History: Reports: Hx Fractures Past Surgical History: Reports: Hx Abdominal Surgery - hernia, ulcer, Hx Appendectomy, Hx Cardiac Surgery - pacemaker, Hx Herniorrhaphy, Hx Pacemaker - meditronic, ventricular, Other - Partial gastric resection secondary to ulcer. Denies: Hx Cardiac Catheterization, Hx Colostomy, Hx Coronary Stent - Immunizations Hx Diphtheria, Pertussis, Tetanus Vaccination: No - unknown Review of Systems - Review of Systems Cardiovascular: Chest pain -: Yes All other systems reviewed and negative Physical Exam - Vital signs Vitals: Temp Pulse Resp BP Pulse Ox 97.5 F 62 24 H 94/61 L 96 11/08/16 13:44 11/08/16 13:44 11/08/16 13:44 11/08/16 13:44 11/08/16 13:44 Interpretation: Normal - General General appearance: Appears well, Alert - HEENT Head: Normocephalic, Atraumatic Eyes: Normal Pupils: PERRL - Respiratory Respiratory status: No respiratory distress Chest status: Nontender Breath sounds: Normal Chest palpation: Normal - Cardiovascular Rhythm: Regular Heart sounds: Normal auscultation Murmur: No - Abdominal Inspection: Normal Distension: No distension Bowel sounds: Normal Tenderness: Nontender Organomegaly: No organomegaly - Extremities General upper extremity: Normal inspection, Nontender, Normal color, Normal ROM , Normal temperature General lower extremity: Normal inspection, Nontender, Normal color, Normal ROM , Normal temperature, Normal weight bearing. No: Ish's sign - Neurological Neuro grossly intact: Yes Cognition: Normal Orientation: AAOx4 [place] Coma Scale Eye Opening: Spontaneous [place] Coma Scale Verbal: Oriented [place] Coma Scale Motor: Obeys Commands [place] Coma Scale Total: 15 Speech: Normal Motor strength normal: LUE, RUE, LLE, RLE Sensory: Normal - Skin Skin Temperature: Warm Skin Moisture: Dry Skin Color: Normal Course - Re-evaluation Re-evalutation: 11/08/16 14:36 Patient is a rather poor historian. His EKG today is a paced rhythm with nothing acute. Patient with need at least 2 sets of enzymes for effective ACS rule out. Patient will be brought to the back treatment area for further management and evaluation by the ED provider in that location. - Vital Signs Vital signs: Temp Pulse Resp BP Pulse Ox 97.5 F 62 24 H 94/61 L 96 11/08/16 13:44 11/08/16 13:44 11/08/16 13:44 11/08/16 13:44 11/08/16 13:44
[2016-11-08 15:13] LABS: ABSOLUTE BASOPHILS # (AUTO) 0.1 10^3/uL (0.0-0.2); ABSOLUTE EOSINOPHILS # (AUTO) 0.4 10^3/uL (0.0-0.6); ABSOLUTE LYMPHOCYTES (AUTO) 1.7 10^3/uL (0.5-4.7); ABSOLUTE MONOCYTES (AUTO) 0.7 10^3/uL (0.1-1.4); ABSOLUTE NEUT (AUTO) 4.2 10^3/uL (1.7-8.2); BASOPHILS % (AUTO) 0.8 % (0-2); EOSINOPHILS % (AUTO) 6.1 % (0-6); HEMATOCRIT 40.5 % (37.9-51.0); HEMOGLOBIN 13.4 g/dL (13.5-17.0); HGB HCT DIFFERENCE -0.3; LYMPHOCYTES % (AUTO) 24.1 % (13-45); MEAN CORPUSCULAR HGB CONC 33.1 g/dL (32.0-36.0); MEAN CORPUSCULAR VOLUME 97 fl (80-97); MONOCYTES % (AUTO) 9.8 % (3-13); RED CELL DISTRIBUTION WIDTH 13.5 % (11.5-14.0); SEGMENTED NEUTROPHILS % (AUTO) 59.2 % (42-78)
[2016-11-08 15:27] LABS: ALANINE AMINOTRANSFERASE 37 U/L (21-72); ALBUMIN 3.7 g/dL (3.5-5.0); ALKALINE PHOSPHATASE 57 U/L (38-126); ANION GAP 10 (5-19); ASPARTATE AMINO TRANSFERASE 28 U/L (17-59); BILIRUBIN,DIRECT 0.3 mg/dL (0.0-0.4); BILIRUBIN,TOTAL 0.5 mg/dL (0.2-1.3); BLOOD UREA NITROGEN 17 mg/dL (7-20); CALCIUM 8.6 mg/dL (8.4-10.2); CARBON DIOXIDE 22 mmol/L (22-30); CHLORIDE 111 mmol/L (98-107); CREATININE RESULT 1.25 mg/dL (0.52-1.25); GLUCOSE 77 mg/dL (75-110); POTASSIUM 4.6 mmol/L (3.6-5.0); SODIUM 142.9 mmol/L (137-145); TOTAL PROTEIN 6.9 g/dL (6.3-8.2)
--- NOTE | 2016-11-08 16:02 | RADIOLOGY REPORT (SQ) ---
EXAM DESCRIPTION: CHEST SINGLE VIEW COMPLETED DATE/TIME: 11/08/2016 3:09 pm REASON FOR STUDY: cp COMPARISON: November 2015 EXAM PARAMETERS: NUMBER OF VIEWS: One view. TECHNIQUE: Single frontal radiographic view of the chest acquired. RADIATION DOSE: NA LIMITATIONS: None. FINDINGS: LUNGS AND PLEURA: No opacities, masses or pneumothorax. No pleural effusion. MEDIASTINUM AND HILAR STRUCTURES: No masses. Contour normal. HEART AND VASCULAR STRUCTURES: Heart normal in size. Normal vasculature. BONES: No acute findings. HARDWARE: Dual chamber transvenous pacemaker is unchanged in position. OTHER: No other significant finding. IMPRESSION: NO ACUTE RADIOGRAPHIC FINDING IN THE CHEST. TECHNICAL DOCUMENTATION: JOB ID: [id number]
--- NOTE | 2016-11-08 17:01 | ER Document Report ---
ED General - General Chief Complaint: Chest Pain Stated Complaint: CHEST PAIN Time Seen by Provider: 11/08/16 14:28 Mode of Arrival: Ambulatory Notes: Patient is here today complaining of weakness in his left arm that he noted beginning yesterday. Also has some pains in the left chest that started yesterday, as well. Patient underwent a stress test yesterday at a local office receiving an IV injection of dye. He was not told the results after that. He started having his current symptoms yesterday after that stress test was performed. He also says he just "does not feel too good". Patient has been nauseated without much vomiting. And, he says he "always" feels some generalized weakness. Patient says that he has had 3 prior strokes, each of them affecting the left side of his body, but has not been left with any remarkable residual. He is able to walk without a limp and has no problems moving his left arm about in any location. He says he is never had an MRI because he has a pacemaker. Patient was seen here and admitted for evaluation in July for very similar presentation. Since then, patient says he is able to walk without any difficulty. Patient has a history of hypertension, used to smoke but has stopped. 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 TRAVEL OUTSIDE OF THE [place] IN LAST 30 DAYS: No - Related Data Allergies/Adverse Reactions: No Known Allergies Allergy (Verified 11/08/16 13:43) Past Medical History - General Information source: Patient, [facility] Records - Social History Smoking Status: Former Smoker Drug Abuse: None Family History: Reviewed & Not Pertinent, CAD - Father Patient has suicidal ideation: No Patient has homicidal ideation: No - Past Medical History Cardiac Medical History: Reports: Hx Atrial Fibrillation, Hx Hypercholesterolemia, Hx Hypertension Pulmonary Medical History: Reports: Hx COPD, Hx Pneumonia Neurological Medical History: Reports: Hx Cerebrovascular Accident, Hx Migraine Endocrine Medical History: Reports: Hx Hypothyroidism Malignancy Medical History: Denies Hx Lung Cancer GI Medical History: Reports: Hx Gastroesophageal Reflux Disease, Hx Ulcer Musculoskeltal Medical History: Reports Hx Arthritis Traumatic Medical History: Reports: Hx Fractures Past Surgical History: Reports: Hx Abdominal Surgery - hernia, ulcer, Hx Appendectomy, Hx Cardiac Surgery - pacemaker, Hx Herniorrhaphy, Hx Pacemaker - meditronic, ventricular, Other - Partial gastric resection secondary to ulcer - Immunizations Hx Diphtheria, Pertussis, Tetanus Vaccination: No - unknown Hx Pneumococcal Vaccination: 02/28/10 Review of Systems - Review of Systems Notes: REVIEW OF SYSTEMS: CONSTITUTIONAL : Denies fever. EENT: Denies eye, ear, nose or mouth or throat pain or other symptoms. CARDIOVASCULAR: Has had some anterior chest pain. See HPI. RESPIRATORY: Denies cough, chest congestion, but has occasional shortness of breath. GASTROINTESTINAL: Denies abdominal pain, vomiting, or diarrhea. Has had some nausea. GENITOURINARY: Denies difficulty or painful urinating, urinary frequency, blood in urine. MUSCULOSKELETAL: Denies back or neck pain. Denies joint pain or swelling. SKIN: Denies rash or skin lesions. NEUROLOGICAL: Denies LOC or altered mental status. Denies headache. Denies sensory loss or motor deficits, but See HPI. ALL OTHER SYSTEMS REVIEWED AND NEGATIVE. Physical Exam - Vital signs Vitals: Temp Pulse Resp BP Pulse Ox 97.5 F 62 24 H 94/61 L 96 11/08/16 13:44 11/08/16 13:44 11/08/16 13:44 11/08/16 13:44 11/08/16 13:44 Interpretation: Normal, Other - Blood pressure recorded in triage of 94/61, but patient does not appear to be in shock and his blood pressure at this time at the bedside is a systolic in the 100s. - Notes Notes: PHYSICAL EXAMINATION: GENERAL: Well-appearing, in no acute distress. HEAD: Atraumatic, normocephalic. EYES: Pupils equal round and reactive to light, extraocular movements intact. ENT: oropharynx clear without exudates. Moist mucous membranes. NECK: Normal range of motion, supple. LUNGS: Breath sounds clear and equal bilaterally. HEART: Regular rate and rhythm without murmurs. ABDOMEN: Soft, nontender. No guarding or rebound. BACK: No tenderness throughout entire back. EXTREMITIES: Normal range of motion without pain. NEUROLOGICAL: Normal speech, normal gait. Normal sensory, motor, and reflex exams. Awake, alert, and oriented x3. Cranial nerves normal. No neurological asymmetry of function. PSYCH: Normal mood, normal affect. SKIN: Warm, dry, no rashes. Course - Vital Signs Vital signs: Temp Pulse Resp BP Pulse Ox 97.5 F 62 24 H 94/61 L 96 11/08/16 13:44 11/08/16 13:44 11/08/16 13:44 11/08/16 13:44 11/08/16 13:44 - Laboratory Result Diagrams: 11/08/16 15:00 11/08/16 15:00 Laboratory results interpreted by me: 11/08/16 11/08/16 15:00 15:00 RBC 4.20 L Hgb 13.4 L Eosinophils % 6.1 H Chloride 111 H Est GFR (Non-Af Amer) 57 L Discharge - Discharge Clinical Impression: Left arm weakness, Chest pain, non-cardiac Condition: Stable Disposition: HOME, SELF-CARE Additional Instructions: CHEST PAIN OF UNCLEAR CAUSE: The exact cause of your chest pain isn't clear. Fortunately, there is no evidence of a dangerous medical condition. Further testing may be required to find the source of the pain. Most often, we find that this pain is coming from the chest wall -- the muscles or rib joints in the chest. But chest pain can come from the lung and lung lining, the esophagus, the heart valves or heart lining, and even the stomach or gallbladder. Rest. Eat lightly until the pain is gone. We may prescribe medicine for pain and inflammation. You should call the physician immediately if the pain radiates to the shoulder, jaw or arms; if you start to run a fever or develop a cough; or if you develop shortness of breath, or other new or alarming symptoms. NORMAL EXAM AND WORKUP: At this time, your examination and workup show no significant abnormality. No significant abnormal physical findings were noted. All laboratory, EKG, and imaging (x-ray, CT scans, ultrasound) studies that were ordered show no significant abnormality. Although your examination and all studies that were ordered showed no significant abnormal finding, there are no examinations and no studies that are 100% accurate. There is always the possibility that some abnormality could exist and not be detected with physical examination or within the limits and capabilities of laboratory and other studies. You should return or follow up as you were instructed on your visit today for further evaluation if your symptoms do not resolve. ASPIRIN: Aspirin has been shown to have a beneficial effect on blood circulation by reducing the clotting effect of platelets in the blood. These beneficial effects can be achieved by taking just a single baby (81 mg) aspirin a day. It is recommended that any person over the age of forty take a single baby aspirin every day for heart and brain circulation, unless you are allergic to aspirin or have some significant bleeding disorder. It is strongly recommended that people who have proven cardiac or blood circulation disturbances should take a baby aspirin every day. I think that you should resume taking a baby aspirin every day. Arm Pain, Nonspecific We did not find an obvious cause for your arm pain. There's no sign of blood clot, infection, heart attack, stroke, or other serious disease. Most of the time, this type of pain goes away. If it does, no further evaluation is necessary. If pain continues or keeps coming back, we can do further testing. Possible causes of vague arm pain include muscle or joint inflammation, disc disease in the neck, pressure on the nerves and artery in the chest or armpit ("thoracic outlet syndrome"), or heart disease. Rest the arm. Pain can be eased with an antiinflammatory pain medicine such as ibuprofen. If the pain involves a small area, a heating pad might help. Call the doctor or return if the arm becomes swollen, weak, discolored, or increasingly painful, or if you develop any other significant change in your health. Transient Ischemic Attack You have been diagnosed as possibly having a transient ischemic attack (TIA ). This is caused when an artery to the brain has been temporarily blocked. It can result in visual changes, difficulty with speech, and weakness or numbness -- usually limited to one side of the body. TIA symptoms usually resolve within an hour, but a TIA is serious, as it may be a warning sign of an impending stroke. To prevent further episodes, you may be placed on medication to reduce the possibility that your platelets will aggregate and form blood clots in the arteries that supply the brain. Usually, this includes aspirin and sometimes other platelet inhibitors. Further evaluation is often necessary to make an exact diagnosis as to where these blood clots are originating, and if anything else needs to be done to correct the problem. Call the physician or go to the emergency room if episodes occur with increasing frequency. If symptoms occur that don't go away within a few minutes , call 911. FOLLOW-UP CARE: If you have been referred to a physician for follow-up care, call the physician s office for an appointment as you were instructed or within the next two days. If you experience worsening or a significant change in your symptoms, notify the physician immediately or return to the Emergency Department at any time for re-evaluation. At this time, I cannot think of any further testing that needs to be done over that will change the outcome and treatment plan. You are unable to have an MRI because you have a pacemaker. In addition, your symptoms have been present for 24 hours and have not worsened and are likely stable, permitting us to send her home.
--- NOTE | 2016-11-08 17:54 | RADIOLOGY REPORT (SQ) ---
EXAM DESCRIPTION: CT HEAD WITHOUT COMPLETED DATE/TIME: 11/08/2016 5:35 pm REASON FOR STUDY: Left arm weakness, Hx strokes COMPARISON: 08/26/2016 TECHNIQUE: Axial images acquired through the brain without intravenous contrast. Images reviewed wi th bone, brain and subdural windows. Images stored on PACS. All CT scanners at this facility use dose modulation, iterative reconstruction, and/or weight based d osing when appropriate to reduce radiation dose to as low as reasonably achievable (ALARA). [facility]: Dose Right [facility]: CareDose [facility]: Dose Right [facility]: Teradose 4D [facility]: Game Blisters RADIATION DOSE: Up-to-date CT equipment and radiation dose reduction techniques were employed. CTDIv ol: 64.6 mGy. DLP: 1163 mGy-cm. mGy. LIMITATIONS: None. FINDINGS: VENTRICLES: Prominent. CEREBRUM: No masses. No hemorrhage. No midline shift. Areas of low density in the white matter mos t likely due to chronic micro-vascular ischemic change. No evidence for acute infarction. CEREBELLUM: No masses. No hemorrhage. No alteration of density. No evidence for acute infarction. EXTRAAXIAL SPACES: Mild age-related involutional change. No fluid collections. No masses. ORBITS AND GLOBE: No intra- or extraconal masses. Normal contour of globe without masses. CALVARIUM: No fracture. PARANASAL SINUSES: No fluid or mucosal thickening. SOFT TISSUES: No mass or hematoma. OTHER: No other significant finding. IMPRESSION: MILD CHRONIC CHANGES OF ATROPHY AND MICROVASCULAR ISCHEMIA. NO ACUTE PROCESS. TECHNICAL DOCUMENTATION: JOB ID: [id number] Quality ID # [id number]: Final reports with documentation of one or more dose reduction techniques (e.g., Au tomated exposure control, adjustment of the mA and/or kV according to patient size, use of iterative reconstruction technique) 2010 [employer]- All Rights Reserved
[2016-11-08 19:41] VITALS: BP 127/75
--- NOTE | 2016-11-08 19:43 | EKG REPORT ---
SEVERITY:- ABNORMAL ECG - ATRIAL-PACED RHYTHM LEFT VENTRICULAR HYPERTROPHY : Confirmed by: Shubham Lancaster MD 08-Nov-2016 19:42:39
== END 2016-11-08 18:35 | disposition home or self-care (01) ==
LOC: ER 13:30
DX: R07.89 Other chest pain (principal); R53.1 Weakness; R11.0 Nausea; J44.9 Chronic obstructive pulmonary disease, unspecified; I10 Essential (primary) hypertension; I48.91 Unspecified atrial fibrillation; Z95.0 Presence of cardiac pacemaker; Z98.890 Other specified postprocedural states; Z86.73 Personal history of transient ischemic attack (TIA), and cerebral infarction without residual deficits; Z87.891 Personal history of nicotine dependence; Z87.01 Personal history of pneumonia (recurrent)
CPT/HCPCS: 36415; 70450; 71010; 80053; 84484; 85025; 93005; 93010; 99285

== ENCOUNTER 2016-12-02 21:28 | Emergency (ER) | payer MEDICARE, MEDICAID ==
[2016-12-02 22:46] LABS: ABSOLUTE BASOPHILS # (AUTO) 0.1 10^3/uL (0.0-0.2); ABSOLUTE EOSINOPHILS # (AUTO) 0.3 10^3/uL (0.0-0.6); ABSOLUTE LYMPHOCYTES (AUTO) 1.6 10^3/uL (0.5-4.7); ABSOLUTE MONOCYTES (AUTO) 0.7 10^3/uL (0.1-1.4); ABSOLUTE NEUT (AUTO) 3.7 10^3/uL (1.7-8.2); BASOPHILS % (AUTO) 1.1 % (0-2); EOSINOPHILS % (AUTO) 5.4 % (0-6); HEMATOCRIT 36.6 % (37.9-51.0); HEMOGLOBIN 12.5 g/dL (13.5-17.0); HGB HCT DIFFERENCE 0.9; MEAN CORPUSCULAR HGB CONC 34.1 g/dL (32.0-36.0); MEAN CORPUSCULAR VOLUME 97 fl (80-97); MONOCYTES % (AUTO) 10.6 % (3-13); RED BLOOD COUNT 3.79 10^6/uL (4.35-5.55); RED CELL DISTRIBUTION WIDTH 13.3 % (11.5-14.0); SEGMENTED NEUTROPHILS % (AUTO) 57.9 % (42-78); WHITE BLOOD COUNT 6.4 10^3/uL (4.0-10.5)
[2016-12-02 23:03] LABS: ANION GAP 8 (5-19); BLOOD UREA NITROGEN 25 mg/dL (7-20); CALCIUM 8.5 mg/dL (8.4-10.2); CARBON DIOXIDE 24 mmol/L (22-30); CHLORIDE 109 mmol/L (98-107); CREATININE RESULT 1.18 mg/dL (0.52-1.25); GLUCOSE 85 mg/dL (75-110); POTASSIUM 4.3 mmol/L (3.6-5.0); SODIUM 140.9 mmol/L (137-145)
--- NOTE | 2016-12-02 23:29 | ER Document Report ---
ED General - General Chief Complaint: Numbness of Arm Stated Complaint: NUMB LEFT SIDE Time Seen by Provider: 12/02/16 22:34 Notes: Patient is a 71 year old female with a past medical history of multiple prior CVAs, hypertension, hyperlipidemia, coronary artery disease who presents with left upper and lower extremity pain. Patient states he often gets this pain after having strokes and has been evaluated in the emergency department on multiple occasions for the same presentation. His current episode of pain is been going on for the past 36 hours. States he has tried Tylenol with minimal to no improvement of the pain. Nothing worsens the pain. Does have baseline numbness to left side of his body notes that this is not new or different today. No new weakness. He denies any chest pain or shortness of breath. He has not seen his primary care doctor regarding today's concerns. States is been taking all medications as directed. TRAVEL OUTSIDE OF THE [place] IN LAST 30 DAYS: No - Related Data Allergies/Adverse Reactions: No Known Allergies Allergy (Verified 12/02/16 21:33) Past Medical History - General Information source: Patient - Social History Smoking Status: Never Smoker Frequency of alcohol use: None Drug Abuse: None Lives with: Family Family History: Reviewed & Not Pertinent, CAD - Father - Past Medical History Cardiac Medical History: Reports: Hx Atrial Fibrillation, Hx Hypercholesterolemia, Hx Hypertension Denies: Hx Congestive Heart Failure, Hx Coronary Artery Disease, Hx Heart Attack, Hx Peripheral Vascular Disease, Hx Pulmonary Embolism, Hx Heart Murmur Pulmonary Medical History: Reports: Hx COPD, Hx Pneumonia Denies: Hx Asthma, Hx Bronchitis, Hx Respiratory Failure, Hx Sleep Apnea, Hx Tuberculosis Neurological Medical History: Reports: Hx Cerebrovascular Accident, Hx Migraine. Denies: Hx Seizures Endocrine Medical History: Reports: Hx Hypothyroidism Renal/ Medical History: Denies: Hx Peritoneal Dialysis Malignancy Medical History: Denies Hx Lung Cancer GI Medical History: Reports: Hx Gastroesophageal Reflux Disease, Hx Ulcer. Denies: Hx Crohn's Disease, Hx Hiatal Hernia, Hx Irritable Bowel, Hx Liver Failure Musculoskeltal Medical History: Reports Hx Arthritis, Denies Hx Fibromyalgia, Denies Hx Muscular Dystrophy Psychiatric Medical History: Denies: Hx Depression Traumatic Medical History: Reports: Hx Fractures Past Surgical History: Reports: Hx Abdominal Surgery - hernia, ulcer, Hx Appendectomy, Hx Cardiac Surgery - pacemaker, Hx Herniorrhaphy, Hx Pacemaker - meditronic, ventricular, Other - Partial gastric resection secondary to ulcer. Denies: Hx Cardiac Catheterization, Hx Colostomy, Hx Coronary Stent - Immunizations Hx Diphtheria, Pertussis, Tetanus Vaccination: No - unknown Hx Pneumococcal Vaccination: 02/28/10 Review of Systems - Review of Systems Notes: Constitutional: Negative for fever. HENT: Negative for sore throat. Eyes: Negative for visual changes. Cardiovascular: Negative for chest pain. Respiratory: Negative for shortness of breath. Gastrointestinal: Negative for abdominal pain, vomiting or diarrhea. Genitourinary: Negative for dysuria. Musculoskeletal: Negative for back pain. Skin: Negative for rash. Neurological: Negative for headaches, positive for baseline numbness to the left upper and lower extremity 10 point ROS negative except as marked above and in HPI. Physical Exam - Vital signs Vitals: Temp Pulse Resp BP Pulse Ox 97.7 F 63 20 110/91 H 97 12/02/16 21:34 12/02/16 21:34 12/02/16 21:34 12/02/16 21:34 12/02/16 21:34 Interpretation: Normal Notes: PHYSICAL EXAMINATION: GENERAL: Well-appearing, well-nourished and in no acute distress. HEAD: Atraumatic, normocephalic. EYES: Pupils equal round and reactive to light, extraocular movements intact, sclera anicteric, conjunctiva are normal. ENT: nares patent, oropharynx clear without exudates. Moist mucous membranes. NECK: Normal range of motion, supple without lymphadenopathy LUNGS: Breath sounds clear to auscultation bilaterally and equal. No wheezes rales or rhonchi. HEART: Regular rate and rhythm without murmurs ABDOMEN: Soft, nontender, normoactive bowel sounds. No guarding, no rebound. No masses appreciated. EXTREMITIES: Normal range of motion, no pitting or edema. No cyanosis. NEUROLOGICAL: Face symmetric. Tongue protrudes midline. Extraocular motions intact. Pupils are 2 mm and equally reactive. Normal speech, normal gait. 5 out of 5 strength in both the distal and proximal upper and lower extremities bilaterally. Sensation is grossly intact throughout. Finger to nose testing normal. Pronator drift normal. PSYCH: Normal mood, normal affect. SKIN: Warm, Dry, normal turgor, no rashes or lesions noted. Course - Re-evaluation Re-evalutation: 12/02/16 23:28 Patient presents with pain of his left upper and lower extremity which he states he often gets after having multiple strokes. He denies there is anything new or different about his symptoms today other than that his pain is more intense than normal. He is however denying that he would like anything for pain. He has no focal neurologic deficits on examination, 5 out of 5 strength bilaterally both upper and lower. No sensory deficit per his report. NIH stroke scale is 0. Patient has had symptoms for greater than 36 hours and would not be a TPA candidate regardless given his use of anticoagulation and the duration of his symptoms. He has been seen in this emergency department on a multitude occasions for the similar presentation is typically discharged home after reassuring evaluation. EKG here without ischemic changes. Troponin is negative. I do not suspect ACS as the etiology of his left upper and lower extremity pain given that he denies any chest pain, shortness of breath, nausea vomiting or diaphoresis and his pain has been continuous for the past [address] Will [address] a [address] of the head to ensure that there is no evidence of a subacute infarct as this should be present and patient has been having symptoms for 36 hours. 12/03/16 00:34 CT the head unchanged. Patient remains without any focal neurologic deficit. At this time will discharge with return precautions and follow-up recommendations. Verbal discharge instructions given a the bedside and opportunity for questions given. Medication warnings reviewed. Patient is in agreement with this plan and has verbalized understanding of return precautions and the need for primary care follow-up in the next 24-72 hours. - Vital Signs Vital signs: Temp Pulse Resp BP Pulse Ox 97.7 F 63 15 99/69 L 95 12/02/16 21:34 12/02/16 21:34 12/03/16 01:09 12/03/16 01:09 12/03/16 01:09 - Laboratory Result Diagrams: 12/02/16 22:37 12/02/16 22:37 Laboratory results interpreted by me: 12/02/16 12/02/16 22:37 22:37 RBC 3.79 L Hgb 12.5 L Hct 36.6 L Chloride 109 H BUN 25 H - Diagnostic Test Radiology reviewed: Reports reviewed - EKG Interpretation by Me Additional EKG results interpreted by me: 12/03/16 04:48 Atrially paced rhythm. Discharge - Discharge Clinical Impression: Left upper arm pain, Left leg pain Condition: Good Disposition: HOME, SELF-CARE Additional Instructions: Your labs, CT the head are normal today. Please follow-up with your primary care doctor regarding today's concerns. Please return to the emergency room immediately if you experience any concerning symptoms including high fevers, severe headache, chest pain, difficulty breathing, abdominal pain, slurred speech, numbness or weakness in your arms or legs, or any other symptom that concerns you. Referrals: DELFINO BLACKMON PA-C [Primary Care Provider] - Follow up as needed
--- NOTE | 2016-12-02 23:40 | EKG REPORT ---
SEVERITY:- ABNORMAL ECG - ATRIAL-PACED COMPLEXES LEFT VENTRICULAR HYPERTROPHY : Confirmed by: Shubham Lancaster MD 02-Dec-2016 23:39:43
--- NOTE | 2016-12-03 00:29 | RADIOLOGY REPORT (SQ) ---
EXAM DESCRIPTION: CT HEAD WITHOUT COMPLETED DATE/TIME: 12/03/2016 12:06 am REASON FOR STUDY: ams COMPARISON: CT brain 11/08/2016, 08/26/2016. TECHNIQUE: Axial images acquired through the brain without intravenous contrast. Images reviewed wi th bone, brain and subdural windows. Images stored on PACS. All CT scanners at this facility use dose modulation, iterative reconstruction, and/or weight based d osing when appropriate to reduce radiation dose to as low as reasonably achievable (ALARA). [facility]: Dose Right [facility]: CareDose [facility]: Dose Right [facility]: Teradose 4D [facility]: [employer] RADIATION DOSE: Up-to-date CT equipment and radiation dose reduction techniques were employed. CTDIv ol: 64.6 mGy. DLP: 1292 mGy-cm. mGy. LIMITATIONS: None. FINDINGS: VENTRICLES: Prominent. CEREBRUM: No mass effect. No hemorrhage. No midline shift. Areas of low density in the white matte r most likely due to chronic micro-vascular ischemic change. No evidence for acute territorial infar ction. CEREBELLUM: No hemorrhage. No alteration of density. No evidence for acute infarction. EXTRAAXIAL SPACES: Mild age-related involutional change. No fluid collections. ORBITS AND GLOBE: Symmetrical contour of the globes. CALVARIUM: No depressed fracture. PARANASAL SINUSES: No air-fluid level. Mild mucosal thickening in the left maxillary sinus. SOFT TISSUES: No hematoma. IMPRESSION: No acute intracranial hemorrhage or acute territorial infarct. Chronic changes of atrop hy and microvascular ischemia. TECHNICAL DOCUMENTATION: JOB ID: [id number] [facility] Quality ID # [id number]: Final reports with documentation of one or more dose reduction techniques (e.g., Au tomated exposure control, adjustment of the mA and/or kV according to patient size, use of iterative reconstruction technique) 2010 [employer]- All Rights Reserved
[2016-12-03 01:18] VITALS: BP 99/69
== END 2016-12-03 01:18 | disposition home or self-care (01) ==
LOC: ER 21:28
DX: M79.602 Pain in left arm (principal); M79.605 Pain in left leg; R20.0 Anesthesia of skin; Z86.73 Personal history of transient ischemic attack (TIA), and cerebral infarction without residual deficits; I10 Essential (primary) hypertension; E78.5 Hyperlipidemia, unspecified; I25.10 Atherosclerotic heart disease of native coronary artery without angina pectoris
CPT/HCPCS: 36415; 70450; 80048; 84484; 85025; 93005; 93010; 99284

== ENCOUNTER 2017-01-06 12:00 | Observation (INO) | payer MEDICARE, MEDICAID ==
[2017-01-06] MEDS ORDERED: NITROGLYCERIN 2% OINTMENT 1 GM PACKET TP ONE (12:24)
--- NOTE | 2017-01-06 12:27 | ER Document Report ---
ED Medical Screen (RME) - General Chief Complaint: Chest Pain Stated Complaint: CHEST PAIN AND ARM PAIN Time Seen by Provider: 01/06/17 12:24 Mode of Arrival: Wheelchair Information source: Patient, Relative TRAVEL OUTSIDE OF THE [place] IN LAST 30 DAYS: No - HPI Patient complains to provider of: CP Onset: Other - Pt. states he has been getting recurrent L-sided CP with radiation down L arm for the past several days. 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 Is on Valneva - Related Data Allergies/Adverse Reactions: No Known Allergies Allergy (Verified 01/06/17 12:14) Past Medical History - Social History Family history: Reviewed & Not Pertinent - Past Medical History Cardiac Medical History: Reports: Hx Atrial Fibrillation, Hx Hypercholesterolemia, Hx Hypertension Denies: Hx Congestive Heart Failure, Hx Coronary Artery Disease, Hx Heart Attack, Hx Peripheral Vascular Disease, Hx Pulmonary Embolism, Hx Heart Murmur Pulmonary Medical History: Reports: Hx COPD, Hx Pneumonia Denies: Hx Asthma, Hx Bronchitis, Hx Respiratory Failure, Hx Sleep Apnea, Hx Tuberculosis Neurological Medical History: Reports: Hx Cerebrovascular Accident, Hx Migraine. Denies: Hx Seizures Endocrine Medical History: Reports: Hx Hypothyroidism Renal/ Medical History: Denies: Hx Peritoneal Dialysis Malignancy Medical History: Denies Hx Lung Cancer GI Medical History: Reports: Hx Gastroesophageal Reflux Disease, Hx Ulcer. Denies: Hx Crohn's Disease, Hx Hiatal Hernia, Hx Irritable Bowel, Hx Liver Failure Musculoskeltal Medical History: Reports Hx Arthritis, Denies Hx Fibromyalgia, Denies Hx Muscular Dystrophy Psychiatric Medical History: Denies: Hx Depression Traumatic Medical History: Reports: Hx Fractures Past Surgical History: Reports: Hx Abdominal Surgery - hernia, ulcer, Hx Appendectomy, Hx Cardiac Surgery - pacemaker, Hx Herniorrhaphy, Hx Pacemaker - meditronic, ventricular, Other - Partial gastric resection secondary to ulcer. Denies: Hx Cardiac Catheterization, Hx Colostomy, Hx Coronary Stent - Immunizations Hx Diphtheria, Pertussis, Tetanus Vaccination: No - unknown Physical Exam - Vital signs Vitals: Temp Pulse Resp BP Pulse Ox 97.6 F 66 20 98/61 L 94 01/06/17 12:14 01/06/17 12:14 01/06/17 12:14 01/06/17 12:14 01/06/17 12:14 Course - Vital Signs Vital signs: Temp Pulse Resp BP Pulse Ox 97.6 F 66 20 98/61 L 94 01/06/17 12:14 01/06/17 12:14 01/06/17 12:14 01/06/17 12:14 01/06/17 12:14
--- NOTE | 2017-01-06 13:08 | ER Document Report ---
ED Cardiac - General Chief Complaint: Chest Pain Stated Complaint: CHEST PAIN AND ARM PAIN Time Seen by Provider: 01/06/17 12:24 Mode of Arrival: Wheelchair Information source: Patient, Relative TRAVEL OUTSIDE OF THE [place] IN LAST 30 DAYS: No - HPI Patient complains to provider of: Chest pain - ache with occ sharp pain Use of: denies: Alcohol, Amphetamines, Bath salts, Caffeine, Cocaine, Decongestants, Other Was the onset of pain: Gradual When did pain begin: 2 days ago, worsened this morning. h/o recurrent chest pains Is the pain a: New problem - new on chronic Chest pain location: Substernal Quality of pain: Achy, Sharp - occ Chest pain radiation location: Left arm Severity now: Moderate Pain level currently: 3 Chest pain precipitating factors: nothing exacerbates. pt able to walk w/o difficulty Cardiac risk factors: Hypertension, Smoker - former Positive cardiac history: Yes Associated symptoms: Headache, Shortness of breath - chronic per patient. no acute changes. denies: None, Abdominal pain, Anxiety, Back pain, Cool extremities, Diaphoresis, Dizziness, Edema, Fatigue, Fever/chills, Heartburn, Hypotension, Jaw pain, Lightheaded, Nausea/vomiting, Neck pain, Palpitations, Rash, Swelling/lump in chest, Syncope, Weakness, Other Exacerbated by: denies: Denies, Sitting, Standing, Activity, Emotional stress, Coughing, Deep breaths, Torso movement, Lying flat, Other Relieved by: denies: Nothing, Rest, Oxygen, NTG, NSAIDs, Leaning forward, Antacids, Other Similar symptoms previously: Yes Recently seen / treated by doctor: Yes - stress test 2mos ago per daughter- negative. Notes: Patient is a 71-year-old male with a history of pacemaker placement, A. fib, CVAs, COPD, HTN, recurrent chest pains who presents the ED complaining of achy chest pain with an occasional sharp pain that began 2 days ago, but worsened this morning. Daughter states that he has had symptoms like this in the past. Daughter states that he did have a stress test 2 months ago approximately that was negative. 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 Patient states that he has chronic shortness of breath and dyspnea on exertion and has not noticed any acute changes in the symptoms. Patient states that he also has an associated headache. Patient has been taking his medications as directed. He is still eating and drinking without any difficulties or worsening/improvement in his pain. Patient is a former smoker. Patient states that he has never been diagnosed with an actual CA and has not had any stents placed. Denies any fever , head injury, neck pain/stiffness, changes in vision/speech/mentation/hearing/ behavior, URI, sore throat, syncope, cough, wheeze, abdominal pain, nausea/ vomiting/diarrhea, urinary retention, dysuria, hematuria, numbness/tingling, muscle paralysis/weakness, or rash. Patient denies any drug allergies. Patient states that he had nitro paste applied during his triage in the ED today , but that worsened his pain so they took it off. - Related Data Allergies/Adverse Reactions: No Known Allergies Allergy (Verified 01/06/17 12:14) Home Medications: Current Home Medications Albuterol Sulfate [Ventolin Hfa] 2 puff IN Q4HP PRN 01/06/17 [History] Past Medical History - General Information source: Patient, Relative - Social History Smoking Status: Former Smoker Chew tobacco use (# tins/day): No Frequency of alcohol use: None Drug Abuse: None Family History: Reviewed & Not Pertinent, CAD - Father - Past Medical History Cardiac Medical History: Reports: Hx Atrial Fibrillation, Hx Hypercholesterolemia, Hx Hypertension Denies: Hx Congestive Heart Failure, Hx Coronary Artery Disease, Hx Heart Attack, Hx Peripheral Vascular Disease, Hx Pulmonary Embolism, Hx Heart Murmur Pulmonary Medical History: Reports: Hx COPD, Hx Pneumonia Denies: Hx Asthma, Hx Bronchitis, Hx Respiratory Failure, Hx Sleep Apnea, Hx Tuberculosis Neurological Medical History: Reports: Hx Cerebrovascular Accident, Hx Migraine. Denies: Hx Seizures Endocrine Medical History: Reports: Hx Hypothyroidism Renal/ Medical History: Denies: Hx Peritoneal Dialysis Malignancy Medical History: Denies Hx Lung Cancer GI Medical History: Reports: Hx Gastroesophageal Reflux Disease, Hx Ulcer. Denies: Hx Crohn's Disease, Hx Hiatal Hernia, Hx Irritable Bowel, Hx Liver Failure Musculoskeltal Medical History: Reports Hx Arthritis, Denies Hx Fibromyalgia, Denies Hx Muscular Dystrophy Psychiatric Medical History: Denies: Hx Depression Traumatic Medical History: Reports: Hx Fractures Past Surgical History: Reports: Hx Abdominal Surgery - hernia, ulcer, Hx Appendectomy, Hx Cardiac Surgery - pacemaker, Hx Herniorrhaphy, Hx Pacemaker - meditronic, ventricular, Other - Partial gastric resection secondary to ulcer. Denies: Hx Cardiac Catheterization, Hx Colostomy, Hx Coronary Stent - Immunizations Hx Diphtheria, Pertussis, Tetanus Vaccination: No - unknown Hx Pneumococcal Vaccination: 02/28/10 Review of Systems - Review of Systems Notes: REVIEW OF SYSTEMS: CONSTITUTIONAL : Denies fever, chills, or sweats. Denies recent illness. EENT: Denies eye, ear, throat, or mouth pain or symptoms. Denies nasal or sinus congestion or discharge. Denies throat, tongue, or mouth swelling or difficulty swallowing. CARDIOVASCULAR: see hpi RESPIRATORY: see hpi. denies acute changes in sx's. GASTROINTESTINAL: Denies abdominal pain or distention. Denies nausea, vomiting , or diarrhea. Denies blood in vomitus, stools, or per rectum. Denies black, tarry stools. Denies constipation. GENITOURINARY: Denies difficulty urinating, painful urination, burning, frequency, blood in urine, or discharge. MUSCULOSKELETAL: Denies back or neck pain or stiffness. Denies joint pain or swelling. SKIN: Denies rash, lesions or sores. NEUROLOGICAL: Denies confusion or altered mental status. Denies passing out or loss of consciousness. Denies dizziness or lightheadedness. Denies headache. Denies weakness or paralysis or loss of use of either side. Denies problems with gait or speech. Denies sensory loss, numbness, or tingling. Denies seizures. PSYCHIATRIC: Denies anxiety or stress. Denies depression, suicidal ideation, or homicidal ideation. ALL OTHER SYSTEMS REVIEWED AND NEGATIVE. Dictation was performed using [employer] voice recognition software Physical Exam - Vital signs Vitals: Temp Pulse Resp BP Pulse Ox 97.6 F 66 20 98/61 L 94 01/06/17 12:14 01/06/17 12:14 01/06/17 12:14 01/06/17 12:14 01/06/17 12:14 Notes: PHYSICAL EXAMINATION: GENERAL: Well-appearing, well-nourished and in no acute distress. A&Ox3 HEAD: Atraumatic, normocephalic. EYES: Pupils equal round and reactive to light, extraocular movements intact, sclera anicteric, conjunctiva are normal. ENT: Nares patent and without discharge. oropharynx clear without exudates. No tonsilar hypertrophy or erythema. Moist mucous membranes. No sinus tenderness. NECK: Normal range of motion, supple without lymphadenopathy. No rigidity/ meningismus. Chest: + tenderness to the left chest near rib 2 (tenderness corresponds to pain elicited) equal rise/fall. LUNGS: Breath sounds clear to auscultation bilaterally and equal. No wheezes rales or rhonchi. HEART: Regular rate and rhythm without murmurs, rubs, gallops. ABDOMEN: Soft, nontender, nondistended abdomen. No guarding, no rebound. No masses appreciated. Normal bowel sounds present. No CVA tenderness bilaterally. Musculoskeletal: Ext b/l: FROM to passive/active. Strength 5+/5. No focal deficits noted. Extremities: No cyanosis, clubbing, or edema b/l. Peripheral pulses 2+. Capillary refill less than 3 seconds. NEUROLOGICAL: Cranial nerves grossly intact. Normal speech. Normal sensory, motor exams PSYCH: Normal mood, normal affect. SKIN: Warm, Dry, normal turgor, no rashes or lesions noted. Course - Re-evaluation Re-evalutation: 01/06/17 16:[address] Huntley who is in agreement with admit/plan: Patient is a 71-year-old male who presents the ED with chest pain not otherwise specified. Vitals are stable. PE otherwise unremarkable at this time aside from the palpable chest wall tenderness. CBC, CMP unremarkable. His initial EKG and troponin are unremarkable for any acute pathology at this time. A second troponin set is pending. Patient does have a cardiac history with A. fib , pacemaker placement, hypertension. Heart score of 4. Discussed with Dr. Ann, hospitalist, who accepted patient for further evaluation/management. pt is in agreement with admit/plan. Pt did have nitropaste at arrival to ED, but it seemed to make his pain worse. - Vital Signs Vital signs: Temp Pulse Resp BP Pulse Ox 97.6 F 68 18 107/66 99 01/06/17 17:58 01/06/17 17:58 01/06/17 17:58 01/06/17 17:58 01/06/17 17:58 - Laboratory Result Diagrams: 01/06/17 12:55 01/06/17 12:55 Laboratory results interpreted by me: 01/06/17 01/06/17 12:55 12:55 RBC 4.11 L Hgb 13.2 L Eosinophils % 7.5 H Chloride 109 H Creatinine 1.28 H Est GFR (Non-Af Amer) 55 L Creatine Kinase 37 L Discharge - Discharge Clinical Impression: Chest pain Qualifiers: Chest pain type: unspecified Qualified Code(s): R07.9 - Chest pain, unspecified Condition: Stable Disposition: ADMITTED INPATIENT Admitting Provider: Hospitalist - Dr. Ann Unit Admitted: Telemetry
[2017-01-06 13:19] LABS: ABSOLUTE BASOPHILS # (AUTO) 0.1 10^3/uL (0.0-0.2); ABSOLUTE EOSINOPHILS # (AUTO) 0.5 10^3/uL (0.0-0.6); ABSOLUTE LYMPHOCYTES (AUTO) 1.5 10^3/uL (0.5-4.7); ABSOLUTE MONOCYTES (AUTO) 0.7 10^3/uL (0.1-1.4); ABSOLUTE NEUT (AUTO) 4.2 10^3/uL (1.7-8.2); BASOPHILS % (AUTO) 0.9 % (0-2); EOSINOPHILS % (AUTO) 7.5 % (0-6); HEMOGLOBIN 13.2 g/dL (13.5-17.0); HGB HCT DIFFERENCE -0.4; LYMPHOCYTES % (AUTO) 21.2 % (13-45); MEAN CORPUSCULAR HEMOGLOBIN 32.1 pg (27.0-33.4); MEAN CORPUSCULAR VOLUME 97 fl (80-97); MONOCYTES % (AUTO) 9.4 % (3-13); RED BLOOD COUNT 4.11 10^6/uL (4.35-5.55); RED CELL DISTRIBUTION WIDTH 13.6 % (11.5-14.0)
[2017-01-06 13:25] LABS: ALANINE AMINOTRANSFERASE 32 U/L (21-72); ALBUMIN 3.7 g/dL (3.5-5.0); ALKALINE PHOSPHATASE 63 U/L (38-126); ANION GAP 12 (5-19); ASPARTATE AMINO TRANSFERASE 25 U/L (17-59); BILIRUBIN,DIRECT 0.3 mg/dL (0.0-0.4); BILIRUBIN,TOTAL 0.5 mg/dL (0.2-1.3); BLOOD UREA NITROGEN 19 mg/dL (7-20); CALCIUM 8.9 mg/dL (8.4-10.2); CARBON DIOXIDE 22 mmol/L (22-30); CHLORIDE 109 mmol/L (98-107); CREATINE KINASE 37 U/L (55-170); CREATININE RESULT 1.28 mg/dL (0.52-1.25); GLUCOSE 82 mg/dL (75-110); POTASSIUM 4.4 mmol/L (3.6-5.0); SODIUM 142.6 mmol/L (137-145); TOTAL PROTEIN 6.4 g/dL (6.3-8.2)
[2017-01-06 13:36] LABS: CREATINE KINASE MB 0.74 ng/mL (<4.55)
[2017-01-06 13:38] LABS: TROPONIN I < 0.012 ng/mL
--- NOTE | 2017-01-06 13:39 | RADIOLOGY REPORT (SQ) ---
EXAM DESCRIPTION: CHEST PA/LAT COMPLETED DATE/TIME: 01/06/2017 1:28 pm REASON FOR STUDY: CP COMPARISON: 11/08/2016. 2015. TECHNIQUE: Frontal and lateral radiographic views of the chest acquired. NUMBER OF VIEWS: Two view. LIMITATIONS: None. FINDINGS: LUNGS AND PLEURA: Chronic left basilar scar. No developing infiltrates, nodules or masses or evidence of failure. No pneumothorax. MEDIASTINUM AND HILAR STRUCTURES: Stable contours. No developing mass. HEART AND VASCULAR STRUCTURES: Heart normal size. No evidence for failure. BONES: No acute findings. HARDWARE: Left transvenous dual lead pacer, grossly intact. OTHER: No other significant finding. IMPRESSION: NO SIGNIFICANT RADIOGRAPHIC FINDING IN THE CHEST. TECHNICAL DOCUMENTATION: JOB ID: [id number] [employer]- All Rights Reserved
[2017-01-06] MEDS ORDERED: NORMAL SALINE 1000 ML 1,000 ML IV ONE (16:13)
[2017-01-06] MEDS ORDERED: ACETAMINOPHEN 325 MG TABLET PO PRN (18:08)
[2017-01-06] MEDS ORDERED: ONDANSETRON HCL INJ/PF 4 MG/2 ML SDV IV PRN (18:08)
[2017-01-06] MEDS ORDERED: ALBUTEROL SULFATE HFA (90 MCG/PUFF) 8 GM MDI (1 MDI/ER DISP) IH PRN (18:15)
--- NOTE | 2017-01-06 18:45 | PDOC H&P ---
History of Present Illness Admission Date/PCP: 01/06/17 16:21 Patient complains of: Chest pain History of Present Illness: LIONEL ACEVEDO is a 71 year old male, with history of chronic atrial fibrillation, COPD, permanent pacemaker placement with revision has been dealing with chest pain for multiple years. Patient had stress test in the past where it was negative according to the family. The patient is scheduled to see a knit goods washer next week for his recurrent chest pain. He was in the hospital 3-4 weeks ago for similar complaints. It was reported that when the patient had a chest pain with associated weakness if you do not have a heart attack he might have had a stroke. A few days ago the pain recurred gnosticism made him cry. He did not go to the hospital. Pain went away but itself with intake of analgesics. The pain recurred again this time on the left side radiating to the left upper extremity with associated numbness. There is also reported pain on the left lower extremity and on the neck. There is no nausea or vomiting associated. No palpitation. No PND orthopnea. Likewise there is no dizziness. At times she will feel sweaty. He has chronic shortness of breath that he has attributed to his COPD. He went to the emergency room for evaluation and was referred for admission. Past Medical History Cardiac Medical History: Reports: Atrial Fibrillation, Hyperlipidema, Hypertension Denies: Congestive Heart Failure, Coronary Artery Disease, Myocardial Infarction, Peripheral Vascular Disease, Pulmonary Embolism, Heart Murmur Pulmonary Medical History: Reports: Chronic Obstructive Pulmonary Disease (COPD) , Pneumonia Denies: Asthma, Bronchitis, Respiratory Failure, Sleep Apnea, Tuberculosis Neurological Medical History: Reports: Migraine Denies: Seizures Endocrine Medical History: Reports: Hypothyroidism Malignancy Medical History: Denies: Lung Cancer GI Medical History: Reports: Gastroesophageal Reflux Disease Denies: Crohn's Disease, Hiatal Hernia Musculoskeltal Medical History: Reports: Arthritis Denies: Fibromyalgia Psychiatric Medical History: Denies: Depression Past Surgical History Past Surgical History: Reports: Appendectomy, Herniorrhaphy, Pacemaker - meditronic, ventricular, Other - Partial gastric resection secondary to ulcer Denies: Cardiac Catheterization, Colostomy, Coronary Stent Social History Information Source: Patient Smoking Status: Former Smoker Frequency of Alcohol Use: None Hx Recreational Drug Use: No Drugs: None Hx Prescription Drug Abuse: No - Advance Directive Resuscitation Status: Full Code Family History Family History: CAD - Father Parental Family History Reviewed: Yes Children Family History Reviewed: Yes Sibling(s) Family History Reviewed.: Yes Medication/Allergy Home Medications: Amiodarone HCl [Cordarone 200 mg Tablet] 200 mg PO DAILY 07/31/16 Apixaban [Eliquis 5 mg Tablet] 5 mg PO BID 07/31/16 Levothyroxine Sodium [Synthroid] 50 mcg PO DAILY 07/31/16 Metoprolol Succinate [Toprol Xl 25 mg Tab.sr] 25 mg PO Q12 07/31/16 Pantoprazole Sodium [Protonix] 40 mg PO DAILY 07/31/16 Potassium Chloride 10 meq PO DAILY 07/31/16 Simvastatin [Zocor 20 mg Tablet] 20 mg PO QHS 07/31/16 Tiotropium [place] [Spiriva Handihaler 5 Cap/Kit (18 Mcg/Cap)] 1 cap IH DAILY Albuterol Sulfate [Ventolin Hfa] 2 puff IN Q4HP PRN 01/06/17 Allergies/Adverse Reactions: No Known Allergies Allergy (Verified 01/06/17 12:14) Review of Systems Constitutional: ABSENT: chills, fever(s), headache(s), night sweats, weakness, weight gain, weight loss Eyes: ABSENT: visual disturbances Ears: ABSENT: hearing changes Nose, Mouth, and Throat: ABSENT: mouth pain, sore throat Cardiovascular: PRESENT: chest pain - Chronic and recurrent, dyspnea on exertion - Chronic from COPD. ABSENT: edema, orthropnea, palpitations Respiratory: ABSENT: cough, hemoptysis, sputum Gastrointestinal: ABSENT: abdominal pain, constipation, diarrhea, hematemesis, hematochezia, nausea, vomiting Genitourinary: ABSENT: dysuria, hematuria Musculoskeletal: ABSENT: joint swelling Integumentary: ABSENT: rash, wounds Neurological: ABSENT: abnormal gait, abnormal speech, confusion, dizziness, focal weakness - denies any new weakness at this time, syncope Psychiatric: ABSENT: anxiety, depression, homidical ideation, suicidal ideation Endocrine: ABSENT: cold intolerance, heat intolerance, polydipsia, polyuria Hematologic/Lymphatic: ABSENT: easy bleeding, easy bruising Physical Exam Vital Signs: Temp Pulse Resp BP Pulse Ox 97.6 F 66 20 98/61 L 94 01/06/17 12:14 01/06/17 12:14 01/06/17 12:14 01/06/17 12:14 01/06/17 12:14 General appearance: PRESENT: no acute distress, cooperative Head exam: PRESENT: atraumatic, normocephalic Eye exam: PRESENT: conjunctiva pink, EOMI, PERRLA. ABSENT: scleral icterus Ear exam: PRESENT: normal external ear exam. ABSENT: drainage Mouth exam: PRESENT: moist, neck supple, tongue midline Neck exam: ABSENT: carotid bruit, JVD, lymphadenopathy, thyromegaly Respiratory exam: PRESENT: clear to auscultation corine. ABSENT: rales, rhonchi, wheezes Cardiovascular exam: PRESENT: RRR. ABSENT: diastolic murmur, rubs, systolic murmur Pulses: PRESENT: normal dorsalis pedis pul Vascular exam: PRESENT: normal capillary refill GI/Abdominal exam: PRESENT: normal bowel sounds, soft. ABSENT: distended, guarding, mass, organolmegaly, rebound, tenderness Rectal exam: PRESENT: deferred Extremities exam: PRESENT: full ROM. ABSENT: calf tenderness, clubbing, pedal edema Neurological exam: PRESENT: alert, awake, oriented to person, oriented to place , oriented to time, oriented to situation, other - Manual muscle testing is equal bilateral Psychiatric exam: PRESENT: appropriate affect, normal mood. ABSENT: homicidal ideation, suicidal ideation Skin exam: PRESENT: dry, intact, warm. ABSENT: cyanosis, rash Results Laboratory Results: 01/06/17 16:45 Troponin I < 0.012 Impressions: Chest X-Ray 01/06/17 12:24 IMPRESSION: NO SIGNIFICANT RADIOGRAPHIC FINDING IN THE CHEST. Assessment & Plan - Diagnosis (1) Chest pain Qualifiers: Chest pain type: unspecified Qualified Code(s): R07.9 - Chest pain, unspecified Is this a current diagnosis for this admission?: Yes (2) Migraine Qualifiers: Migraine type: unspecified Status migrainosus presence: without status migrainosus Intractability: not intractable Qualified Code(s): G43.909 - Migraine, unspecified, not intractable, without status migrainosus Is this a current diagnosis for this admission?: Yes (3) GERD (gastroesophageal reflux disease) Qualifiers: Esophagitis presence: without esophagitis Qualified Code(s): K21.9 - Gastro -esophageal reflux disease without esophagitis Is this a current diagnosis for this admission?: Yes (4) COPD (chronic obstructive pulmonary disease) Qualifiers: COPD type: unspecified COPD Qualified Code(s): J44.9 - Chronic obstructive pulmonary disease, unspecified Is this a current diagnosis for this admission?: Yes (5) Afib Qualifiers: Atrial fibrillation type: unspecified Qualified Code(s): I48.91 - Unspecified atrial fibrillation Is this a current diagnosis for this admission?: Yes (6) Hypercholesterolemia Is this a current diagnosis for this admission?: Yes (7) Hypertension Qualifiers: Hypertension type: essential hypertension Qualified Code(s): I10 - Essential (primary) hypertension Is this a current diagnosis for this admission?: Yes (8) Hypothyroid Qualifiers: Hypothyroidism type: acquired Qualified Code(s): E03.9 - Hypothyroidism, unspecified Is this a current diagnosis for this admission?: Yes (9) History of stroke Is this a current diagnosis for this admission?: Yes - Time Time Spent: 50 to 70 Minutes - Plan Summary Plan Summary: The patient will be admitted to observation. We will place the patient on oxygen. Continue his cardiac medications and antiplatelet therapy. We will continue his chronic anticoagulation with the new generation of anticoagulants. In the meantime we will obtain cardiac enzymes 3 and if negative patient can be discharged home and follow-up with his knit goods washer early next week. Patient and family prefers to see his knit goods washer in [facility]. We will obtain a cervical spine x-ray. Further testing depends on the initial evaluation as outlined above.
--- NOTE | 2017-01-06 20:13 | EKG REPORT ---
SEVERITY:- ABNORMAL ECG - ATRIAL-PACED RHYTHM LVH BY VOLTAGE : Confirmed by: Shubham Lancaster MD 06-Jan-2017 20:12:37
[2017-01-06] MEDS ORDERED: SIMVASTATIN 10 MG TABLET PO SCH (22:00)
[2017-01-06] MEDS: METOPROLOL SUCCINATE 25 MG TAB.SR.24H PO SCH (22:22)
[2017-01-06] MEDS: APIXABAN 5 MG TABLET PO SCH (22:22)
--- NOTE | 2017-01-06 23:27 | RADIOLOGY REPORT (SQ) ---
EXAM DESCRIPTION: CERV SP 3 VIEW OR LESS COMPLETED DATE/TIME: 01/06/2017 7:00 pm REASON FOR STUDY: neck pain, weakness left COMPARISON: None. NUMBER OF VIEWS: Three views. TECHNIQUE: AP, lateral and odontoid radiographic images acquired of the cervical spine. LIMITATIONS: None. FINDINGS: MINERALIZATION: Normal. ALIGNMENT: Anatomic. VERTEBRAE: Mild flattening of the C4 vertebral body with concomitant marginal osteophyte formation. DISCS: C4/5 loss of intervertebral disc height. HARDWARE: None in the spine. SOFT TISSUES: No masses or calcifications. Lung apices clear. OTHER: Uncovertebral hypertrophy and left greater than right facet arthropathy are demonstrated. IMPRESSION: Mild C4/5 spondylotic change with multilevel facet arthropathy. No acute findings. TECHNICAL DOCUMENTATION: JOB ID: [id number] 2001 [employer]- All Rights Reserved
[2017-01-06 23:38] LABS: CREATINE KINASE MB 0.78 ng/mL (<4.55)
[2017-01-06 23:46] LABS: TROPONIN I < 0.012 ng/mL
[2017-01-07] MEDS ORDERED: LANSOPRAZOLE 30 MG TAB.RAP.DR PO SCH (06:00)
[2017-01-07 06:26] LABS: CREATINE KINASE MB 0.75 ng/mL (<4.55)
[2017-01-07 06:29] LABS: TROPONIN I < 0.012 ng/mL
--- NOTE | 2017-01-07 07:59 | EKG REPORT ---
SEVERITY:- ABNORMAL ECG - A-V DUAL-PACED COMPLEXES W/ SOME INHIBITION : Confirmed by: Shubham Lancaster MD 07-Jan-2017 07:59:05
[2017-01-07] MEDS ORDERED: ALBUTEROL SULFATE HFA (90 MCG/PUFF) 200 PUFF/8.5 GM MDI IH PRN (08:08)
[2017-01-07 08:48] VITALS: BP 99/59
[2017-01-07] MEDS: APIXABAN 5 MG TABLET PO SCH (09:52)
[2017-01-07] MEDS: METOPROLOL SUCCINATE 25 MG TAB.SR.24H PO SCH (09:53)
[2017-01-07] MEDS ORDERED: ENOXAPARIN SODIUM INJ 40 MG/0.4 ML DISP.SYRIN SUBCUT SCH (10:00)
[2017-01-07] MEDS ORDERED: DOCUSATE SODIUM 100 MG CAPSULE PO SCH (10:00)
[2017-01-07] MEDS ORDERED: LEVOTHYROXINE SODIUM 0.05 MG TABLET PO SCH (10:00)
[2017-01-07] MEDS ORDERED: TIOTROPIUM BROMIDE DPI 5 CAP/KIT (18 MCG/CAP) IH SCH (10:00)
[2017-01-07] MEDS ORDERED: AMIODARONE HCL 200 MG TABLET PO SCH (10:00)
--- NOTE | 2017-01-07 10:17 | PDOC DISCHARGE SUMMARY ---
General - Admit/Disc Date/PCP Admission Date/Primary Care Provider: 01/06/17 18:00 Discharge Date: 01/07/17 - Discharge Diagnosis (1) Chest pain Is this a current diagnosis for this admission?: Yes (2) Migraine Is this a current diagnosis for this admission?: Yes (3) GERD (gastroesophageal reflux disease) Is this a current diagnosis for this admission?: Yes (4) COPD (chronic obstructive pulmonary disease) Is this a current diagnosis for this admission?: Yes (5) Afib Is this a current diagnosis for this admission?: Yes (6) Hypercholesterolemia Is this a current diagnosis for this admission?: Yes (7) Hypertension Is this a current diagnosis for this admission?: Yes (8) Hypothyroid Is this a current diagnosis for this admission?: Yes (9) History of stroke Is this a current diagnosis for this admission?: Yes - Additional Information Resuscitation Status: Full Code Discharge Diet: Cardiac - Low-fat low-salt Discharge Activity: Activity As Tolerated, Balance Activity w/Rest Home Medications: Amiodarone HCl [Cordarone 200 mg Tablet] 200 mg PO DAILY 07/31/16 Apixaban [Eliquis 5 mg Tablet] 5 mg PO BID 07/31/16 Levothyroxine Sodium [Synthroid] 50 mcg PO DAILY 07/31/16 Metoprolol Succinate [Toprol Xl 25 mg Tab.sr] 25 mg PO Q12 07/31/16 Pantoprazole Sodium [Protonix] 40 mg PO DAILY 07/31/16 Simvastatin [Zocor 20 mg Tablet] 20 mg PO QHS 07/31/16 Tiotropium [place] [Spiriva Handihaler 5 Cap/Kit (18 Mcg/Cap)] 1 cap IH DAILY Albuterol Sulfate [Ventolin Hfa] 2 puff IN Q4HP PRN 01/06/17 Isosorbide Mononitrate [Imdur 30 mg Tablet.er] 30 mg PO BID #60 tab.er.24h 01/07 History of Present Illness Patient complains of: Chest pain History of Present Illness: LIONEL ACEVEDO is a 71 year old male, with history of chronic atrial fibrillation, COPD, permanent pacemaker placement with revision has been dealing with chest pain for multiple years. Patient had stress test in the past where it was negative according to the family. The patient is scheduled to see a shift coordinator next week for his recurrent chest pain. He was in the hospital 3-4 weeks ago for similar complaints. It was reported that when the patient had a chest pain with associated weakness if you do not have a heart attack he might have had a stroke. A few days ago the pain recurred spiritism made him cry. He did not go to the hospital. Pain went away but itself with intake of analgesics. The pain recurred again this time on the left side radiating to the left upper extremity with associated numbness. There is also reported pain on the left lower extremity and on the neck. There is no nausea or vomiting associated. No palpitation. No PND orthopnea. Likewise there is no dizziness. At times she will feel sweaty. He has chronic shortness of breath that he has attributed to his COPD. He went to the emergency room for evaluation and was referred for admission. Hospital Course Hospital Course: The patient was admitted to telemetry. He was continued on his chronic anticoagulation therapy. Supplemental oxygen was given. His cardiac medications were renewed. Chest x-ray did not reveal any acute infiltrate. Serial EKG showed no evolutionary changes. Serial troponins were obtained and were negative for myocardial infarction. Patient improved with above measure. Patient has an appointment with cardiology in [facility] on 01/08/2017. He wants to keep that appointment. His family was agreeable with the plan. He was therefore discharged home improved. He was given Imdur twice a day and to be evaluated by shift coordinator on an outpatient basis. Physical Exam Vital Signs: Temp Pulse Resp BP Pulse Ox 98.4 F 63 17 99/59 L 97 01/07/17 07:18 01/07/17 07:18 01/07/17 07:18 01/07/17 07:18 01/07/17 07:18 Intake & Output 01/06/17 01/07/17 01/08/17 06:59 06:59 06:59 Intake Total 980 Output Total 300 Balance 680 Weight 64.2 kg General appearance: PRESENT: no acute distress, cooperative Head exam: PRESENT: normocephalic Eye exam: PRESENT: EOMI Mouth exam: PRESENT: moist, neck supple Neck exam: ABSENT: JVD Respiratory exam: PRESENT: clear to auscultation corine Cardiovascular exam: PRESENT: RRR. ABSENT: gallop GI/Abdominal exam: PRESENT: soft. ABSENT: distended, tenderness Neurological exam: PRESENT: alert, awake, oriented to person, oriented to place , oriented to time, oriented to situation Skin exam: PRESENT: dry, warm. ABSENT: cyanosis Results Laboratory Results: 01/06/17 01/06/17 01/07/17 23:00 23:00 05:00 Creatine Kinase 30 L 57 CK-MB (CK-2) 0.78 Troponin I < 0.012 01/07/17 05:00 Creatine Kinase CK-MB (CK-2) 0.75 Troponin I < 0.012 Impressions: Cervical Spine X-Ray 01/06/17 00:00 IMPRESSION: Mild C4/5 spondylotic change with multilevel facet arthropathy. No acute findings. Chest X-Ray 01/06/17 12:24 IMPRESSION: NO SIGNIFICANT RADIOGRAPHIC FINDING IN THE CHEST. Qualifiers PATEINT BEING DISCHARGED WITH ANY OF THE FOLLOWING DIAGNOSIS?: No Plan Discharge Plan: Follow-up with primary care physician in 1 week. Follow-up with cardiology in [facility] 01/08/2017 as scheduled. Time Spent: Less than 30 Minutes
== END 2017-01-07 11:25 | disposition home or self-care (01) ==
LOC: ER 12:00 → EH 16:21 → UNDOADMIN 16:21 → 5 18:00 → INTOOBSV 18:00 → EH 18:26 → 5 18:26
DX: R07.9 Chest pain, unspecified (principal); G43.909 Migraine, unspecified, not intractable, without status migrainosus; K21.9 Gastro-esophageal reflux disease without esophagitis; J44.9 Chronic obstructive pulmonary disease, unspecified; I48.2 Chronic atrial fibrillation; E78.00 Pure hypercholesterolemia, unspecified; I10 Essential (primary) hypertension; E03.9 Hypothyroidism, unspecified; M79.605 Pain in left leg; M47.892 Other spondylosis, cervical region; Z86.73 Personal history of transient ischemic attack (TIA), and cerebral infarction without residual deficits; Z79.899 Other long term (current) drug therapy; Z95.0 Presence of cardiac pacemaker; Z79.01 Long term (current) use of anticoagulants; Z87.891 Personal history of nicotine dependence; Z90.3 Acquired absence of stomach [part of]; Z90.49 Acquired absence of other specified parts of digestive tract; Z82.49 Family history of ischemic heart disease and other diseases of the circulatory system
CPT/HCPCS: 93005 ×2; 99285; 36415 ×2; 82553 ×2; 82550 ×2; 85025; 80053; 84484 ×2; 72040; 71020; 93010 ×2; G0378 ×2; A9270 ×11; J3490 ×5; J7030

== ENCOUNTER → 2017-06-01 | Outpatient (CLI) | payer MEDICARE, MEDICAID ==
--- NOTE | 2017-06-01 11:39 | RADIOLOGY REPORT (SQ) ---
EXAM DESCRIPTION: CHEST PA/LAT COMPLETED DATE/TIME: 06/01/2017 10:36 am REASON FOR STUDY: COUGH COMPARISON: CT chest 01/18/2016 Chest films 08/26/2016, 11/08/2016, 01/06/2017 EXAM PARAMETERS: NUMBER OF VIEWS: two views TECHNIQUE: Digital Frontal and Lateral radiographic views of the chest acquired. RADIATION DOSE: NA LIMITATIONS: none FINDINGS: LUNGS AND PLEURA: Question early or developing right upper lobe infiltrate. Lungs are otherwise clear aside from minimal left basilar chronic scarring, similar compared to CT ex am 01/18/2016. No pleural effusion. No pneumothorax. MEDIASTINUM AND HILAR STRUCTURES: No masses or contour abnormalities. HEART AND VASCULAR STRUCTURES: Heart normal size. No evidence for failure. BONES: No acute findings. HARDWARE: Left-sided dual lead pacemaker OTHER: Surgical clips in the upper abdomen GE junction, post partial gastrectomy IMPRESSION: Question early or developing infiltrate in the right upper lobe TECHNICAL DOCUMENTATION: JOB ID: [id number] [employer]- All Rights Reserved
== END ==
LOC: RAD 10:17
PROVIDERS: ATTEND Physician Assistant
DX: R05 Cough (principal); Z95.0 Presence of cardiac pacemaker
CPT/HCPCS: 71046

== ENCOUNTER 2017-06-09 09:02 | Emergency (ER) | payer MEDICARE, MEDICAID ==
[2017-06-09] MEDS ORDERED: ACETAMINOPHEN 325 MG TABLET PO ONE (09:32)
--- NOTE | 2017-06-09 09:35 | ER Document Report ---
HPI - HPI Patient complains to provider of: Right hip injury Onset: Yesterday Onset/Duration: Sudden Quality of pain: Achy Pain Level: 4 Context: Patient states that he was walking yesterday, tripped and fell injuring his right hip. Patient complains of continued right hip pain since then. Patient denies any other injury, chest pain, or loss of consciousness. Patient has been ambulatory without assist since the fall. Associated Symptoms: Other - Right hip pain. denies: Nonproductive cough, Fever , Headache Exacerbated by: Movement, Walking Relieved by: Remaining still Similar symptoms previously: No Recently seen / treated by doctor: Yes - ROS ROS below otherwise negative: Yes Systems Reviewed and Negative: Yes All other systems reviewed and negative - CONSTITUTIONAL Constitutional: DENIES: Fever, Chills - CARDIOVASCULAR Cardiovascular: DENIES: Chest pain - RESPIRATORY Respiratory: DENIES: Coughing - GASTROINTESTINAL Gastrointestinal: DENIES: Patient vomiting - REPRODUCTIVE Reproductive: DENIES: : - MUSCULOSKELETAL Musculoskeletal: REPORTS: Extremity pain - Right hip. DENIES: Back Pain - DERM Skin Color: Normal Skin Problems: None Past Medical History - General Information source: Patient - Social History Smoking Status: Never Smoker Frequency of alcohol use: None Drug Abuse: None Lives with: Family Family History: Reviewed & Not Pertinent, CAD - Father - Past Medical History Cardiac Medical History: Reports: Hx Atrial Fibrillation, Hx Hypercholesterolemia, Hx Hypertension Denies: Hx Congestive Heart Failure, Hx Coronary Artery Disease, Hx Heart Attack, Hx Peripheral Vascular Disease, Hx Pulmonary Embolism, Hx Heart Murmur Pulmonary Medical History: Reports: Hx COPD, Hx Pneumonia Denies: Hx Asthma, Hx Bronchitis, Hx Respiratory Failure, Hx Sleep Apnea, Hx Tuberculosis Neurological Medical History: Reports: Hx Cerebrovascular Accident, Hx Migraine. Denies: Hx Seizures Endocrine Medical History: Reports: Hx Hypothyroidism Renal/ Medical History: Denies: Hx Peritoneal Dialysis Malignancy Medical History: Denies Hx Lung Cancer GI Medical History: Reports: Hx Gastroesophageal Reflux Disease, Hx Ulcer. Denies: Hx Crohn's Disease, Hx Hiatal Hernia, Hx Irritable Bowel, Hx Liver Failure, Hx Pancreatitis Musculoskeltal Medical History: Reports Hx Arthritis, Denies Hx Fibromyalgia, Denies Hx Muscular Dystrophy Psychiatric Medical History: Denies: Hx Depression Traumatic Medical History: Reports: Hx Fractures Past Surgical History: Reports: Hx Abdominal Surgery - hernia, ulcer, Hx Appendectomy, Hx Cardiac Surgery - pacemaker, Hx Herniorrhaphy, Hx Pacemaker - meditronic, ventricular, Other - Partial gastric resection secondary to ulcer. Denies: Hx Cardiac Catheterization, Hx Colostomy, Hx Coronary Stent - Immunizations Hx Diphtheria, Pertussis, Tetanus Vaccination: No - unknown Hx Pneumococcal Vaccination: 02/28/10 Vertical Provider Document - CONSTITUTIONAL Agree With Documented VS: Yes Exam Limitations: No Limitations General Appearance: WD/WN, No Apparent Distress - INFECTION CONTROL TRAVEL OUTSIDE OF THE [place] IN LAST 30 DAYS: No - HEENT HEENT: Atraumatic, Normocephalic - NECK Neck: Normal Inspection, Supple - RESPIRATORY Respiratory: Breath Sounds Normal, No Respiratory Distress - CARDIOVASCULAR Cardiovascular: Regular Rate, Regular Rhythm Pulses: Normal: Dorsalis pedis - GI/ABDOMEN Gastrointestinal: Abdomen Soft - BACK Back: Normal Inspection. negative: CVA Tenderness-Right, CVA Tenderness-Left - MUSCULOSKELETAL/EXTREMETIES Musculoskeletal/Extremeties: MAEW, Tender - Right hip tenderness to anterior and lateral aspect, patient able to bear weight without difficulty - NEURO Level of Consciousness: Awake, Alert, Appropriate Motor/Sensory: No Motor Deficit - DERM Integumentary: Warm, Dry, No Rash Course - Re-evaluation Re-evalutation: 06/09/17 11:[address] as well as x-ray report findings with patient and family. Patient encouraged to follow-up with his primary doctor as well as orthopedic doctor for any continued pain or problems. No concern for occult fracture at this time. - Diagnostic Test Radiology reviewed: Reports reviewed Discharge - Discharge Clinical Impression: Sprain of right hip Qualifiers: Encounter type: initial encounter Qualified Code(s): S73.101A - Unspecified sprain of right hip, initial encounter Condition: Stable Disposition: HOME, SELF-CARE Instructions: Oral Narcotic Medication ([facility]), Sprain ([facility]) Additional Instructions: Return immediately for any new or worsening symptoms Followup with your primary care provider, call tomorrow to make a followup appointment Follow-up with orthopedic doctor for any continued pain or problems Prescriptions: Hydrocodone/Acetaminophen [[place] 5-325 Tablet] 1 each PO Q8 PRN #12 tablet PRN Reason: Walker [Folding Walker] 1 each MC ASDIR PRN #1 each PRN Reason: Referrals: DELFINO BLACKMON PA-C [Primary Care Provider] - 06/11/17 [facility] [Provider Group] - Follow up as needed
--- NOTE | 2017-06-09 10:15 | RADIOLOGY REPORT (SQ) ---
EXAM DESCRIPTION: HIP RIGHT AP/LATERAL COMPLETED DATE/TIME: 06/09/2017 10:08 am REASON FOR STUDY: fall, hip pain COMPARISON: None. NUMBER OF VIEWS: Two views. TECHNIQUE: AP pelvis and additional frog-leg view of the right hip. LIMITATIONS: None. FINDINGS: MINERALIZATION: Normal. RIGHT HIP: No fracture or dislocation. No worrisome bone lesions. LEFT HIP: No fracture or dislocation. No worrisome bone lesions. PUBIS AND ISCHIUM: No fracture. PELVIS: No fracture. SACRUM: No fracture or dislocation. No worrisome bone lesions. LOWER LUMBAR SPINE: No fracture or dislocation. No worrisome bone lesions. No significant disc disea se. SOFT TISSUES: No findings. OTHER: No other significant finding. IMPRESSION: NEGATIVE STUDY OF THE RIGHT HIP. NO RADIOGRAPHIC EVIDENCE OF ACUTE INJURY. TECHNICAL DOCUMENTATION: JOB ID: [id number] [employer]- All Rights Reserved
--- NOTE | 2017-06-09 11:07 | RADIOLOGY REPORT (SQ) ---
EXAM DESCRIPTION: CT RT LOWER EXTREMITY WITHOUT COMPLETED DATE/TIME: 06/09/2017 10:45 am REASON FOR STUDY: fall, hip pain COMPARISON: X-ray dated 06/09/2017. TECHNIQUE: CT scan of the right hip performed without intravenous or oral contrast. Images reviewed with soft tissue and bone windows. Reconstructed coronal and sagittal MPR images reviewed. All kena ges stored on PACS. All CT scanners at this facility use dose modulation, iterative reconstruction, and/or weight based d osing when appropriate to reduce radiation dose to as low as reasonably achievable (ALARA). [facility]: Dose Right [facility]: CareDose [facility]: Dose Right [facility]: Teradose 4D [facility]: Owlient RADIATION DOSE: CT Rad equipment meets quality standard of care and radiation dose reduction techniq ues were employed. CTDIvol: 4.1 mGy. DLP: 93 mGy-cm. mGy. LIMITATIONS: None. FINDINGS: PELVIC BONES: No acute fracture. No worrisome bone lesions. VISUALIZED SPINE: No acute findings. SYMPTOMATIC HIP: No acute fracture or dislocation. No worrisome bone lesions. PELVIC SOFT TISSUES: No significant findings. EXTRAPELVIC SOFT TISSUES: No significant findings. OTHER: No other significant finding. IMPRESSION: NO ACUTE OR SIGNIFICANT FINDINGS IN THE RIGHT HIP OR VISUALIZED PELVIS. TECHNICAL DOCUMENTATION: JOB ID: [id number] Quality ID # [id number]: Final reports with documentation of one or more dose reduction techniques (e.g., Au tomated exposure control, adjustment of the mA and/or kV according to patient size, use of iterative reconstruction technique) 2010 [employer]- All Rights Reserved
[2017-06-09 11:41] VITALS: BP 118/66
== END 2017-06-09 11:41 | disposition home or self-care (01) ==
LOC: ER 09:02
DX: S73.101A Unspecified sprain of right hip, initial encounter (principal); W01.0XXA Fall on same level from slipping, tripping and stumbling without subsequent striking against object, initial encounter; I48.91 Unspecified atrial fibrillation; E78.00 Pure hypercholesterolemia, unspecified; I10 Essential (primary) hypertension; Z86.73 Personal history of transient ischemic attack (TIA), and cerebral infarction without residual deficits; Z95.0 Presence of cardiac pacemaker
CPT/HCPCS: 99284; 73502; 73700; A9270

== ENCOUNTER 2017-07-31 13:07 | Emergency (ER) | payer MEDICARE, MEDICAID ==
--- NOTE | 2017-07-31 13:36 | ER Document Report ---
ED Medical Screen (RME) - General Chief Complaint: Headache Stated Complaint: HEAD PAIN Time Seen by Provider: 07/31/17 13:30 Notes: This 71-year-old male patient with past medical history of chronic atrial fibrillation on Eliquis, COPD, reports sudden onset this morning while sitting in a chair of a frontal and top of his head headache. The headache persists. He also developed generalized weakness and feeling bad and aching all over at the same time. He does not normally have headaches this is a new problem. I have greeted and performed a rapid initial assessment of this patient. A comprehensive ED assessment and evaluation of the patient, analysis of test results and completion of the medical decision making process will be conducted by additional ED providers. TRAVEL OUTSIDE OF THE [place] IN LAST 30 DAYS: No - Related Data Allergies/Adverse Reactions: No Known Allergies Allergy (Verified 07/31/17 13:07) Past Medical History - Social History Frequency of alcohol use: None Drug Abuse: None Family history: Reviewed & Not Pertinent - Past Medical History Cardiac Medical History: Reports: Hx Atrial Fibrillation, Hx Hypercholesterolemia, Hx Hypertension Denies: Hx Congestive Heart Failure, Hx Coronary Artery Disease, Hx Heart Attack, Hx Peripheral Vascular Disease, Hx Pulmonary Embolism, Hx Heart Murmur Pulmonary Medical History: Reports: Hx COPD, Hx Pneumonia Denies: Hx Asthma, Hx Bronchitis, Hx Respiratory Failure, Hx Sleep Apnea, Hx Tuberculosis Neurological Medical History: Reports: Hx Cerebrovascular Accident, Hx Migraine. Denies: Hx Seizures Endocrine Medical History: Reports: Hx Hypothyroidism Renal/ Medical History: Denies: Hx Peritoneal Dialysis Malignancy Medical History: Denies Hx Lung Cancer GI Medical History: Reports: Hx Gastroesophageal Reflux Disease, Hx Ulcer. Denies: Hx Crohn's Disease, Hx Hiatal Hernia, Hx Irritable Bowel, Hx Liver Failure, Hx Pancreatitis Musculoskeltal Medical History: Reports Hx Arthritis, Denies Hx Fibromyalgia, Denies Hx Muscular Dystrophy Psychiatric Medical History: Denies: Hx Depression Traumatic Medical History: Reports: Hx Fractures Past Surgical History: Reports: Hx Abdominal Surgery - hernia, ulcer, Hx Appendectomy, Hx Cardiac Surgery - pacemaker, Hx Herniorrhaphy, Hx Pacemaker - meditronic, ventricular, Other - Partial gastric resection secondary to ulcer. Denies: Hx Cardiac Catheterization, Hx Colostomy, Hx Coronary Stent - Immunizations Hx Diphtheria, Pertussis, Tetanus Vaccination: No - unknown Physical Exam - Vital signs Vitals: Temp Pulse Resp BP Pulse Ox 97.8 F 65 16 136/70 H 99 07/31/17 13:12 07/31/17 13:12 07/31/17 13:12 07/31/17 13:12 07/31/17 13:12 Course - Vital Signs Vital signs: Temp Pulse Resp BP Pulse Ox 97.8 F 65 16 136/70 H 99 07/31/17 13:12 07/31/17 13:12 07/31/17 13:12 07/31/17 13:12 07/31/17 13:12
--- NOTE | 2017-07-31 14:19 | RADIOLOGY REPORT (SQ) ---
EXAM DESCRIPTION: CT HEAD WITHOUT COMPLETED DATE/TIME: 07/31/2017 1:58 pm REASON FOR STUDY: Sudden onset frontal headache COMPARISON: [address] exam of the brain since 12/05/2012 TECHNIQUE: Axial images acquired through the brain without intravenous contrast. Images reviewed wi th bone, brain and subdural windows. Additional sagittal and coronal reconstructions were generated. Images stored on PACS. All CT scanners at this facility use dose modulation, iterative reconstruction, and/or weight based d osing when appropriate to reduce radiation dose to as low as reasonably achievable (ALARA). [facility]: Dose Right [facility]: CareDose [facility]: Dose Right [facility]: Teradose 4D [facility]: Pepscan RADIATION DOSE: CT Rad equipment meets quality standard of care and radiation dose reduction techniq ues were employed. CTDIvol: 53.2 mGy. DLP: 1044 mGy-cm. mGy. LIMITATIONS: None. FINDINGS: VENTRICLES: Normal size and contour. CEREBRUM: No masses. No hemorrhage. No midline shift. No evidence for acute infarction. Normal gra y/white matter differentiation. No areas of low density in the white matter. CEREBELLUM: No masses. No hemorrhage. No alteration of density. No evidence for acute infarction. EXTRAAXIAL SPACES: No fluid collections. No masses. ORBITS AND GLOBE: No intra- or extraconal masses. Normal contour of globe without masses. CALVARIUM: No fracture. PARANASAL SINUSES: Mucous membrane thickening bilateral maxillary, sphenoid, ethmoid, and frontal sin uses. SOFT TISSUES: No mass or hematoma. OTHER: No other significant finding. IMPRESSION: NORMAL BRAIN CT WITHOUT CONTRAST. Diffuse inflammatory changes in the paranasal sinuses . EVIDENCE OF ACUTE STROKE: NO. COMMENT: Quality ID # [id number]: Final reports with documentation of one or more dose reduction techniques (e.g., Automated exposure control, adjustment of the mA and/or kV according to patient size, use of iterative reconstruction technique) TECHNICAL DOCUMENTATION: JOB ID: [id number] [employer]- All Rights Reserved Reading location - IP/workstation name: [email or web address]
[2017-07-31] MEDS ORDERED: AMOXICILLIN TRIHYDRATE 500 MG CAPSULE PO ONE (14:46)
[2017-07-31] MEDS ORDERED: NORMAL SALINE 500 ML IV ONE (14:46)
[2017-07-31] MEDS ORDERED: PROCHLORPERAZINE EDISYLATE INJ 10 MG/2 ML VIAL IV ONE (14:46)
[2017-07-31] MEDS ORDERED: ONDANSETRON HCL INJ/PF 4 MG/2 ML SDV IV ONE (14:46)
--- NOTE | 2017-07-31 16:50 | ER Document Report ---
ED General - General Chief Complaint: Headache Stated Complaint: HEAD PAIN Time Seen by Provider: 07/31/17 13:30 TRAVEL OUTSIDE OF THE [place] IN LAST 30 DAYS: No - HPI Patient complains to provider of: Headache Notes: Patient coming in for evaluation of headache. Patient states acute onset early this morning start stabbing on top of the scalp in the frontal region. Patient also states last few days had yellow nasal discharge with frontal pressure. Denies any fevers or chills. Patient currently is on Eliquis for A. fib. Patient denies any head trauma. Patient currently is lying in stretcher without any medication states that since being or meet his head pain has improved. - Related Data Allergies/Adverse Reactions: No Known Allergies Allergy (Verified 07/31/17 13:07) Past Medical History - Social History Smoking Status: Former Smoker Frequency of alcohol use: None Drug Abuse: None Family History: Reviewed & Not Pertinent, CAD - Father Patient has suicidal ideation: No Patient has homicidal ideation: No - Past Medical History Cardiac Medical History: Reports: Hx Atrial Fibrillation, Hx Hypercholesterolemia, Hx Hypertension Denies: Hx Congestive Heart Failure, Hx Coronary Artery Disease, Hx Heart Attack, Hx Peripheral Vascular Disease, Hx Pulmonary Embolism, Hx Heart Murmur Pulmonary Medical History: Reports: Hx COPD, Hx Pneumonia Denies: Hx Asthma, Hx Bronchitis, Hx Respiratory Failure, Hx Sleep Apnea, Hx Tuberculosis Neurological Medical History: Reports: Hx Cerebrovascular Accident, Hx Migraine. Denies: Hx Seizures Endocrine Medical History: Reports: Hx Hypothyroidism Renal/ Medical History: Denies: Hx Peritoneal Dialysis Malignancy Medical History: Denies Hx Lung Cancer GI Medical History: Reports: Hx Gastroesophageal Reflux Disease, Hx Ulcer. Denies: Hx Crohn's Disease, Hx Hiatal Hernia, Hx Irritable Bowel, Hx Liver Failure, Hx Pancreatitis Musculoskeltal Medical History: Reports Hx Arthritis, Denies Hx Fibromyalgia, Denies Hx Muscular Dystrophy Psychiatric Medical History: Denies: Hx Depression Traumatic Medical History: Reports: Hx Fractures Past Surgical History: Reports: Hx Abdominal Surgery - hernia, ulcer, Hx Appendectomy, Hx Cardiac Surgery - pacemaker, Hx Herniorrhaphy, Hx Pacemaker - meditronic, ventricular, Other - Partial gastric resection secondary to ulcer. Denies: Hx Cardiac Catheterization, Hx Colostomy, Hx Coronary Stent - Immunizations Hx Diphtheria, Pertussis, Tetanus Vaccination: No - unknown Hx Pneumococcal Vaccination: 02/28/10 Review of Systems - Review of Systems Constitutional: No symptoms reported EENT: No symptoms reported Cardiovascular: No symptoms reported Respiratory: No symptoms reported Gastrointestinal: No symptoms reported Genitourinary: No symptoms reported Male Genitourinary: No symptoms reported Musculoskeletal: No symptoms reported Skin: No symptoms reported Hematologic/Lymphatic: No symptoms reported Neurological/Psychological: Headaches -: Yes All other systems reviewed and negative Physical Exam - Vital signs Vitals: Temp Pulse Resp BP Pulse Ox 97.8 F 65 16 136/70 H 99 07/31/17 13:12 07/31/17 13:12 07/31/17 13:12 07/31/17 13:12 07/31/17 13:12 Interpretation: Normal - General General appearance: Appears well, Alert - HEENT Head: Normocephalic, Atraumatic Eyes: Normal Pupils: PERRL - Respiratory Respiratory status: No respiratory distress Chest status: Nontender Breath sounds: Normal Chest palpation: Normal - Cardiovascular Rhythm: Regular - Taking as well as Heart sounds: Normal auscultation Murmur: No - Abdominal Inspection: Normal Distension: No distension Bowel sounds: Normal Tenderness: Nontender Organomegaly: No organomegaly - Back Back: Normal, Nontender - Extremities General upper extremity: Normal inspection, Nontender, Normal color, Normal ROM , Normal temperature General lower extremity: Normal inspection, Nontender, Normal color, Normal ROM , Normal temperature, Normal weight bearing. No: Ish's sign - Neurological Neuro grossly intact: Yes Cognition: Normal Orientation: AAOx4 Bella Coma Scale Eye Opening: Spontaneous Bella Coma Scale Verbal: Oriented [place] Coma Scale Motor: Obeys Commands Bella Coma Scale Total: 15 Speech: Normal Motor strength normal: LUE, RUE, LLE, RLE Sensory: Normal - Psychological Associated symptoms: Normal affect, Normal mood - Skin Skin Temperature: Warm Skin Moisture: Dry Skin Color: Normal Course - Re-evaluation Re-evalutation: 07/31/17 18:49 CT of the head is negative for any acute etiology. Patient upon reevaluation feeling better after Compazine Zofran states headache is resolved. CT scan does show sinusitis symptoms. With patient's history of nasal discharge frontal sinus pressure I will start patient on amoxicillin. Patient is an understanding will be discharged home. The patient presents with headache without signs of TUBE SORTER bleed, stroke, infection, or other serious etiology. The patient is neurologically intact. Given the extremely low risk of these diagnoses further testing and evaluation for these possibilities does not appear to be indicated at this time. The patient has been instructed to return if the symptoms worsen or change in any way.. - Vital Signs Vital signs: Temp Pulse Resp BP Pulse Ox 97.8 F 63 18 126/60 H 96 07/31/17 17:39 07/31/17 17:39 07/31/17 17:39 07/31/17 17:39 07/31/17 17:39 Discharge - Discharge Clinical Impression: Headache Qualifiers: Headache type: unspecified Headache chronicity pattern: unspecified pattern Intractability: not intractable Qualified Code(s): R51 - Headache Sinus infection Qualifiers: Sinusitis location: unspecified location Chronicity: acute Recurrence: not specified as recurrent Qualified Code(s): J01.90 - Acute sinusitis, unspecified Condition: Good Disposition: HOME, SELF-CARE Instructions: Headache ([facility]), Sinusitis ([facility]) Additional Instructions: Your CAT scan today does not show any signs of acute bleeding but does show signs of a sinus infection possibly a reason why you have a headache. Please take medication as prescribed return to ER if symptoms worsen. Prescriptions: Amoxicillin Trihydrate [Amoxil 500 mg Capsule] 500 mg PO TID #30 cap Referrals: DELFINO BLACKMON PA-C [Primary Care Provider] - Follow up as needed
[2017-07-31 17:44] VITALS: BP 126/60
== END 2017-07-31 17:45 | disposition home or self-care (01) ==
LOC: ER 13:07
DX: J01.90 Acute sinusitis, unspecified (principal); R51 Headache; Z79.01 Long term (current) use of anticoagulants; Z87.891 Personal history of nicotine dependence; I10 Essential (primary) hypertension; J44.9 Chronic obstructive pulmonary disease, unspecified
CPT/HCPCS: 99284; 96361; 96374; 96375; 70450; A9270; J0780; J2405; J7040

== ENCOUNTER 2017-08-12 15:28 | Emergency (ER) | payer MEDICARE, MEDICAID ==
--- NOTE | 2017-08-12 15:55 | EKG REPORT ---
SEVERITY:- ABNORMAL ECG - ATRIAL-PACED COMPLEXES [facility] : Confirmed by: Shubham Lancaster MD 12-Aug-2017 15:55:04
--- NOTE | 2017-08-12 15:57 | ER Document Report ---
ED Medical Screen (RME) - General Chief Complaint: Chest Pain Stated Complaint: CHEST PAIN Time Seen by Provider: 08/12/17 15:52 Notes: This 71-year-old male patient comes emergency room complaining of chest pain intermittently for the past 3 days. His left-sided pain. His family member reports he gets a sharp pain that makes him weak all over and tired. He also reports she has had some shortness of breath, headache which is a chronic problem, and states he was vomiting today. I have greeted and performed a rapid initial assessment of this patient. A comprehensive ED assessment and evaluation of the patient, analysis of test results and completion of the medical decision making process will be conducted by additional ED providers. TRAVEL OUTSIDE OF THE [place] IN LAST 30 DAYS: No - Related Data Allergies/Adverse Reactions: No Known Allergies Allergy (Verified 08/12/17 15:48) Past Medical History - Social History Chew tobacco use (# tins/day): No Frequency of alcohol use: None Drug Abuse: None Family history: Reviewed & Not Pertinent - Past Medical History Cardiac Medical History: Reports: Hx Atrial Fibrillation, Hx Hypercholesterolemia, Hx Hypertension Denies: Hx Congestive Heart Failure, Hx Coronary Artery Disease, Hx Heart Attack, Hx Peripheral Vascular Disease, Hx Pulmonary Embolism, Hx Heart Murmur Pulmonary Medical History: Reports: Hx COPD, Hx Pneumonia Denies: Hx Asthma, Hx Bronchitis, Hx Respiratory Failure, Hx Sleep Apnea, Hx Tuberculosis Neurological Medical History: Reports: Hx Cerebrovascular Accident, Hx Migraine. Denies: Hx Seizures Endocrine Medical History: Reports: Hx Hypothyroidism Renal/ Medical History: Denies: Hx Peritoneal Dialysis Malignancy Medical History: Denies Hx Lung Cancer GI Medical History: Reports: Hx Gastroesophageal Reflux Disease, Hx Ulcer. Denies: Hx Crohn's Disease, Hx Hiatal Hernia, Hx Irritable Bowel, Hx Liver Failure, Hx Pancreatitis Musculoskeltal Medical History: Reports Hx Arthritis, Denies Hx Fibromyalgia, Denies Hx Muscular Dystrophy Psychiatric Medical History: Denies: Hx Depression Traumatic Medical History: Reports: Hx Fractures Past Surgical History: Reports: Hx Abdominal Surgery - hernia, ulcer, Hx Appendectomy, Hx Cardiac Surgery - pacemaker, Hx Herniorrhaphy, Hx Pacemaker - meditronic, ventricular, Other - Partial gastric resection secondary to ulcer. Denies: Hx Cardiac Catheterization, Hx Colostomy, Hx Coronary Stent - Immunizations Hx Diphtheria, Pertussis, Tetanus Vaccination: No - unknown Physical Exam - Vital signs Vitals: Temp Pulse Resp BP Pulse Ox 97.4 F 64 16 105/57 L 96 08/12/17 15:41 08/12/17 15:41 08/12/17 15:41 08/12/17 15:41 08/12/17 15:41 Course - Vital Signs Vital signs: Temp Pulse Resp BP Pulse Ox 97.4 F 64 16 105/57 L 96 08/12/17 15:41 08/12/17 15:41 08/12/17 15:41 08/12/17 15:41 08/12/17 15:41
[2017-08-12 16:24] LABS: ABSOLUTE BASOPHILS # (AUTO) 0.1 10^3/uL (0.0-0.2); ABSOLUTE EOSINOPHILS # (AUTO) 0.4 10^3/uL (0.0-0.6); ABSOLUTE LYMPHOCYTES (AUTO) 2.1 10^3/uL (0.5-4.7); ABSOLUTE MONOCYTES (AUTO) 0.6 10^3/uL (0.1-1.4); ABSOLUTE NEUT (AUTO) 5.9 10^3/uL (1.7-8.2); BASOPHILS % (AUTO) 0.7 % (0-2); EOSINOPHILS % (AUTO) 3.9 % (0-6); HEMATOCRIT 36.6 % (37.9-51.0); HEMOGLOBIN 12.3 g/dL (13.5-17.0); LYMPHOCYTES % (AUTO) 22.9 % (13-45); MEAN CORPUSCULAR HEMOGLOBIN 32.9 pg (27.0-33.4); MEAN CORPUSCULAR HGB CONC 33.6 g/dL (32.0-36.0); MEAN CORPUSCULAR VOLUME 98 fl (80-97); MONOCYTES % (AUTO) 7.1 % (3-13); PLATELET COUNT 194 10^3/uL (150-450); RED BLOOD COUNT 3.74 10^6/uL (4.35-5.55); RED CELL DISTRIBUTION WIDTH 15.1 % (11.5-14.0); SEGMENTED NEUTROPHILS % (AUTO) 65.4 % (42-78); TOTAL CELLS COUNTED % (AUTO) 100 %
--- NOTE | 2017-08-12 16:33 | ER Document Report ---
ED Cardiac - General Chief Complaint: Chest Pain Stated Complaint: CHEST PAIN Time Seen by Provider: 08/12/17 15:52 Mode of Arrival: Ambulatory Information source: Patient TRAVEL OUTSIDE OF THE [place] IN LAST 30 DAYS: No - HPI Patient complains to provider of: Chest pain Was the onset of pain: Sudden Is the pain a: New problem Chest pain location: Other - Left anterior chest wall Quality of pain: Sharp, Stabbing Severity now: None Severity at worst: Moderate Chest pain precipitating factors: At Rest Cardiac risk factors: Hypertension Associated symptoms: Weakness Exacerbated by: Denies Relieved by: Nothing Similar symptoms previously: No Recently seen / treated by doctor: No Notes: Patient is a 71-year-old male presenting to the emergency room complaining of intermittent sharp stabbing chest pain to the left anterior chest wall that has been going on for the past 2-3 days, he reports some associated shortness of breath but no diaphoresis, patient also reports a sensation of weakness all over when the chest pain comes, he reports a nonproductive cough, no fevers, no nausea or vomiting, denies any symptoms at present time except for a headache which he reports is chronic and daily and no worse than usual - Related Data Allergies/Adverse Reactions: No Known Allergies Allergy (Verified 08/12/17 15:48) Past Medical History - General Information source: Patient - Social History Smoking Status: Former Smoker Chew tobacco use (# tins/day): No Frequency of alcohol use: None Drug Abuse: None Family History: Reviewed & Not Pertinent, CAD - Father Patient has suicidal ideation: No Patient has homicidal ideation: No - Past Medical History Cardiac Medical History: Reports: Hx Atrial Fibrillation, Hx Hypercholesterolemia, Hx Hypertension Denies: Hx Congestive Heart Failure, Hx Coronary Artery Disease, Hx Heart Attack, Hx Peripheral Vascular Disease, Hx Pulmonary Embolism, Hx Heart Murmur Pulmonary Medical History: Reports: Hx COPD, Hx Pneumonia Denies: Hx Asthma, Hx Bronchitis, Hx Respiratory Failure, Hx Sleep Apnea, Hx Tuberculosis Neurological Medical History: Reports: Hx Cerebrovascular Accident, Hx Migraine. Denies: Hx Seizures Endocrine Medical History: Reports: Hx Hypothyroidism Renal/ Medical History: Denies: Hx Peritoneal Dialysis Malignancy Medical History: Denies Hx Lung Cancer GI Medical History: Reports: Hx Gastroesophageal Reflux Disease, Hx Ulcer. Denies: Hx Crohn's Disease, Hx Hiatal Hernia, Hx Irritable Bowel, Hx Liver Failure, Hx Pancreatitis Musculoskeltal Medical History: Reports Hx Arthritis, Denies Hx Fibromyalgia, Denies Hx Muscular Dystrophy Psychiatric Medical History: Denies: Hx Depression Traumatic Medical History: Reports: Hx Fractures Past Surgical History: Reports: Hx Abdominal Surgery - hernia, ulcer, Hx Appendectomy, Hx Cardiac Surgery - pacemaker, Hx Herniorrhaphy, Hx Pacemaker - meditronic, ventricular, Other - Partial gastric resection secondary to ulcer. Denies: Hx Cardiac Catheterization, Hx Colostomy, Hx Coronary Stent - Immunizations Hx Diphtheria, Pertussis, Tetanus Vaccination: No - unknown Hx Pneumococcal Vaccination: 02/28/10 Review of Systems - Review of Systems Constitutional: Weakness EENT: No symptoms reported Cardiovascular: See HPI Respiratory: No symptoms reported Gastrointestinal: No symptoms reported Genitourinary: No symptoms reported Male Genitourinary: No symptoms reported Musculoskeletal: No symptoms reported Skin: No symptoms reported Hematologic/Lymphatic: No symptoms reported Neurological/Psychological: No symptoms reported Physical Exam - Vital signs Vitals: Temp Pulse Resp BP Pulse Ox 97.4 F 64 16 105/57 L 96 08/12/17 15:41 08/12/17 15:41 08/12/17 15:41 08/12/17 15:41 08/12/17 15:41 Interpretation: Normal - General General appearance: Appears well, Alert - HEENT Head: Normocephalic, Atraumatic Eyes: Normal Pupils: PERRL - Respiratory Respiratory status: No respiratory distress Chest status: Tender - Tender to palpate in the left anterior chest wall Breath sounds: Normal Chest palpation: Normal - Cardiovascular Rhythm: Regular Heart sounds: Normal auscultation Murmur: No - Abdominal Inspection: Normal Distension: No distension Bowel sounds: Normal Tenderness: Nontender Organomegaly: No organomegaly - Back Back: Normal, Nontender - Extremities General upper extremity: Normal inspection, Nontender, Normal color, Normal ROM , Normal temperature General lower extremity: Normal inspection, Nontender, Normal color, Normal ROM , Normal temperature, Normal weight bearing. No: Ish's sign - Neurological Neuro grossly intact: Yes Cognition: Normal Orientation: AAOx4 Bella Coma Scale Eye Opening: Spontaneous [place] Coma Scale Verbal: Oriented [place] Coma Scale Motor: Obeys Commands Bella Coma Scale Total: 15 Speech: Normal Motor strength normal: LUE, RUE, LLE, RLE Sensory: Normal - Psychological Associated symptoms: Normal affect, Normal mood - Skin Skin Temperature: Warm Skin Moisture: Dry Skin Color: Normal Course - Re-evaluation Re-evalutation: 08/12/17 20:04 On reevaluation patient reports his pain is unchanged but now reveals that his pain has actually been unchanged since 2009 when his pacemaker was placed, there is mild tenderness around the pacemaker, however no erythema or swelling, no signs of any infection, pain is consistent with 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, lab and imaging findings unremarkable including 2 sets of troponins, therefore patient will be discharged with instructions for follow-up and advised to return if symptoms worsen, acknowledges understanding and agreement with this plan - Vital Signs Vital signs: Temp Pulse Resp BP Pulse Ox 97.4 F 64 13 102/65 96 08/12/17 15:41 08/12/17 15:41 08/12/17 19:01 08/12/17 19:01 08/12/17 18:02 - Laboratory Result Diagrams: 08/12/17 16:12 08/12/17 16:12 Laboratory results interpreted by me: 08/12/17 08/12/17 08/12/17 16:12 16:12 16:12 RBC 3.74 L Hgb 12.3 L Hct 36.6 L MCV 98 H RDW 15.1 H APTT 38.3 H Chloride 108 H BUN 27 H Glucose 117 H Calcium 8.3 L Total Bilirubin < 0.1 L Creatine Kinase 27 L Total Protein 6.1 L Albumin 3.4 L - Diagnostic Test Radiology reviewed: Image reviewed, Reports reviewed - EKG Interpretation by Me Additional EKG results interpreted by me: 08/12/17 20:05 Paced rhythm at a rate of 68, no acute change Discharge - Discharge Clinical Impression: Chest wall pain Condition: Stable Disposition: HOME, SELF-CARE Instructions: Chest Wall Pain ([facility]) Additional Instructions: Follow up with your primary care provider in one to 2 days. Return to the emergency room immediately if symptoms worsen or any additional concerns. Prescriptions: Acetaminophen [Tylenol Extra Strength 500 mg Tablet] 1 tab PO Q8 PRN #60 tab PRN Reason: Referrals: DELFINO BLACKMON PA-C [Primary Care Provider] - Follow up as needed
[2017-08-12 16:40] LABS: ALANINE AMINOTRANSFERASE 35 U/L (21-72); ALBUMIN 3.4 g/dL (3.5-5.0); ALKALINE PHOSPHATASE 54 U/L (38-126); ANION GAP 13 (5-19); ASPARTATE AMINO TRANSFERASE 29 U/L (17-59); BLOOD UREA NITROGEN 27 mg/dL (7-20); CALCIUM 8.3 mg/dL (8.4-10.2); CARBON DIOXIDE 23 mmol/L (22-30); CHLORIDE 108 mmol/L (98-107); CREATINE KINASE 27 U/L (55-170); GLUCOSE 117 mg/dL (75-110); POTASSIUM 4.1 mmol/L (3.6-5.0); SODIUM 144.1 mmol/L (137-145); TOTAL PROTEIN 6.1 g/dL (6.3-8.2)
[2017-08-12 16:41] LABS: BILIRUBIN,TOTAL < 0.1 mg/dL (0.2-1.3)
[2017-08-12 16:52] LABS: INTERNATIONAL RATION (INR) 1.15; PARTIAL THROMBOPLASTIN TIME 38.3 SEC (23.5-35.8); PROTHROMBIN TIME 15.3 SEC (11.4-15.4)
--- NOTE | 2017-08-12 17:09 | RADIOLOGY REPORT (SQ) ---
EXAM DESCRIPTION: CHEST 2 VIEWS COMPLETED DATE/TIME: 08/12/2017 4:55 pm REASON FOR STUDY: cp COMPARISON: 06/01/2017 EXAM PARAMETERS: NUMBER OF VIEWS: two views TECHNIQUE: Digital Frontal and Lateral radiographic views of the chest acquired. RADIATION DOSE: NA LIMITATIONS: none FINDINGS: LUNGS AND PLEURA: No opacities, masses or pneumothorax. No pleural effusion. MEDIASTINUM AND HILAR STRUCTURES: No masses or contour abnormalities. HEART AND VASCULAR STRUCTURES: Heart normal size. No evidence for failure. BONES: No acute findings. HARDWARE: Transvenous pacemaker unchanged. OTHER: No other significant finding. IMPRESSION: NO ACUTE RADIOGRAPHIC FINDING IN THE CHEST. TECHNICAL DOCUMENTATION: JOB ID: [id number] [employer]- All Rights Reserved Reading location - IP/workstation name: [email or web address]
[2017-08-12 20:57] VITALS: BP 105/60
== END 2017-08-12 20:57 | disposition home or self-care (01) ==
LOC: ER 15:28
DX: R07.89 Other chest pain (principal); R06.02 Shortness of breath; R53.1 Weakness; R05 Cough; R51 Headache; I10 Essential (primary) hypertension; J44.9 Chronic obstructive pulmonary disease, unspecified; Z87.891 Personal history of nicotine dependence; Z87.01 Personal history of pneumonia (recurrent); Z82.49 Family history of ischemic heart disease and other diseases of the circulatory system; Z95.0 Presence of cardiac pacemaker
CPT/HCPCS: 36415; 71046; 80053; 82550; 84484; 85025; 85610; 85730; 93005; 93010; 99285

== ENCOUNTER 2017-10-07 14:55 | Emergency (ER) | payer MEDICARE, MEDICAID ==
[2017-10-07] MEDS ORDERED: ASPIRIN 81 MG TABLET, CHEWABLE PO ONE (15:14)
--- NOTE | 2017-10-07 15:42 | ER Document Report ---
ED Medical Screen (RME) - General Chief Complaint: General Weakness Stated Complaint: ARM PAIN Time Seen by Provider: 10/07/17 15:40 Mode of Arrival: Ambulatory Information source: Patient Notes: This is a 71-year-old man with a history of COPD and CVA in the past (on chronic anticoagulation with Eliquis) who presents to the emergency room with left chest discomfort radiating down the left arm which comes and goes and is not associated with any exacerbating or relieving factors. Patient does state that he gets short of breath whenever he "tries to do something". However, when asked if he gets short of breath when he walks around, he says he does not. He states that the discomfort started yesterday and has been on and off since that period of time. Currently he states he feels fine. His EKG is sinus rhythm without any changes from a previous EKG. I have greeted and performed a rapid initial assessment of this patient. A comprehensive ED assessment and evaluation of the patient, analysis of test results and completion of medical decision making process we will be contacted by additional ED providers. TRAVEL OUTSIDE OF THE [place] IN LAST 30 DAYS: No - Related Data Allergies/Adverse Reactions: No Known Allergies Allergy (Verified 10/07/17 15:14) Past Medical History - Social History Chew tobacco use (# tins/day): No Frequency of alcohol use: None Drug Abuse: None Family history: Reviewed & Not Pertinent - Past Medical History Cardiac Medical History: Reports: Hx Atrial Fibrillation, Hx Hypercholesterolemia, Hx Hypertension Denies: Hx Congestive Heart Failure, Hx Coronary Artery Disease, Hx Heart Attack, Hx Peripheral Vascular Disease, Hx Pulmonary Embolism, Hx Heart Murmur Pulmonary Medical History: Reports: Hx COPD, Hx Pneumonia Denies: Hx Asthma, Hx Bronchitis, Hx Respiratory Failure, Hx Sleep Apnea, Hx Tuberculosis Neurological Medical History: Reports: Hx Cerebrovascular Accident, Hx Migraine. Denies: Hx Seizures Endocrine Medical History: Reports: Hx Hypothyroidism Renal/ Medical History: Denies: Hx Peritoneal Dialysis Malignancy Medical History: Denies Hx Lung Cancer GI Medical History: Reports: Hx Gastroesophageal Reflux Disease, Hx Ulcer. Denies: Hx Crohn's Disease, Hx Hiatal Hernia, Hx Irritable Bowel, Hx Liver Failure, Hx Pancreatitis Musculoskeltal Medical History: Reports Hx Arthritis, Denies Hx Fibromyalgia, Denies Hx Muscular Dystrophy Psychiatric Medical History: Denies: Hx Depression Traumatic Medical History: Reports: Hx Fractures Past Surgical History: Reports: Hx Abdominal Surgery - hernia, ulcer, Hx Appendectomy, Hx Cardiac Surgery - pacemaker, Hx Herniorrhaphy, Hx Pacemaker - meditronic, ventricular, Other - Partial gastric resection secondary to ulcer. Denies: Hx Cardiac Catheterization, Hx Colostomy, Hx Coronary Stent - Immunizations Hx Diphtheria, Pertussis, Tetanus Vaccination: No - unknown Physical Exam - Vital signs Vitals: Temp Pulse Resp BP Pulse Ox 97.7 F 67 16 100/70 95 10/07/17 15:03 10/07/17 15:03 10/07/17 15:03 10/07/17 15:03 10/07/17 15:03 Course - Vital Signs Vital signs: Temp Pulse Resp BP Pulse Ox 97.7 F 67 16 100/70 95 10/07/17 15:03 10/07/17 15:03 10/07/17 15:03 10/07/17 15:03 10/07/17 15:03 Doctor's Discharge - Discharge Referrals: MAGDA VALENTIN PA-C [Primary Care Provider] - Follow up as needed
[2017-10-07 16:10] LABS: ABSOLUTE BASOPHILS # (AUTO) 0.1 10^3/uL (0.0-0.2); ABSOLUTE EOSINOPHILS # (AUTO) 0.5 10^3/uL (0.0-0.6); ABSOLUTE LYMPHOCYTES (AUTO) 2.6 10^3/uL (0.5-4.7); ABSOLUTE MONOCYTES (AUTO) 0.8 10^3/uL (0.1-1.4); ABSOLUTE NEUT (AUTO) 4.8 10^3/uL (1.7-8.2); BASOPHILS % (AUTO) 1.5 % (0-2); EOSINOPHILS % (AUTO) 6.1 % (0-6); HEMATOCRIT 37.8 % (37.9-51.0); HEMOGLOBIN 12.9 g/dL (13.5-17.0); LYMPHOCYTES % (AUTO) 28.9 % (13-45); MEAN CORPUSCULAR HEMOGLOBIN 33.1 pg (27.0-33.4); MEAN CORPUSCULAR HGB CONC 34.1 g/dL (32.0-36.0); MEAN CORPUSCULAR VOLUME 97 fl (80-97); MONOCYTES % (AUTO) 9.3 % (3-13); PLATELET COUNT 173 10^3/uL (150-450); RED CELL DISTRIBUTION WIDTH 13.9 % (11.5-14.0); SEGMENTED NEUTROPHILS % (AUTO) 54.2 % (42-78); TOTAL CELLS COUNTED % (AUTO) 100 %; WHITE BLOOD COUNT 8.8 10^3/uL (4.0-10.5)
--- NOTE | 2017-10-07 16:29 | RADIOLOGY REPORT (SQ) ---
EXAM DESCRIPTION: CHEST SINGLE VIEW COMPLETED DATE/TIME: 10/07/2017 4:19 pm REASON FOR STUDY: weakness c/p COMPARISON: 08/12/2017. EXAM PARAMETERS: NUMBER OF VIEWS: One view. TECHNIQUE: Single frontal radiographic view of the chest acquired. RADIATION DOSE: NA LIMITATIONS: None. FINDINGS: LUNGS AND PLEURA: No acute infiltrates or effusions. MEDIASTINUM AND HILAR STRUCTURES: No masses. Contour normal. HEART AND VASCULAR STRUCTURES: The heart is normal with aortic atherosclerosis. BONES: No acute findings. HARDWARE: Pacemaker leads are in place. IMPRESSION: No acute disease. TECHNICAL DOCUMENTATION: JOB ID: [id number] SC-[id number] 2010 [employer]- All Rights Reserved Reading location - IP/workstation name: [email or web address]
[2017-10-07 16:30] LABS: ALANINE AMINOTRANSFERASE 27 U/L (21-72); ALBUMIN 3.7 g/dL (3.5-5.0); ALKALINE PHOSPHATASE 51 U/L (38-126); ANION GAP 12 (5-19); ASPARTATE AMINO TRANSFERASE 23 U/L (17-59); BILIRUBIN,DIRECT 0.2 mg/dL (0.0-0.4); BILIRUBIN,TOTAL 0.2 mg/dL (0.2-1.3); BLOOD UREA NITROGEN 30 mg/dL (7-20); CALCIUM 8.6 mg/dL (8.4-10.2); CARBON DIOXIDE 26 mmol/L (22-30); CHLORIDE 109 mmol/L (98-107); CREATINE KINASE 36 U/L (55-170); GLUCOSE 69 mg/dL (75-110); POTASSIUM 4.1 mmol/L (3.6-5.0); SODIUM 146.6 mmol/L (137-145); TOTAL PROTEIN 6.6 g/dL (6.3-8.2)
[2017-10-07 16:41] LABS: CREATINE KINASE MB 0.67 ng/mL (<4.55)
[2017-10-07 16:47] LABS: TROPONIN I < 0.012 ng/mL
--- NOTE | 2017-10-07 17:08 | ER Document Report ---
ED General - General Chief Complaint: General Weakness Stated Complaint: ARM PAIN Time Seen by Provider: 10/07/17 15:40 Mode of Arrival: Ambulatory Information source: Patient Notes: 71-year-old male presents emergency department with complaints of left upper extremity numbness. Patient states that it has been present for the last day. It is intermittent in nature. Patient states that he has chronic chest pain that never resolves. He states that his chest pain is not new. He states that the left upper extremity numbness and pain is new. Patient states that this last episode has been going on since last night. He denies any nausea, vomiting , diaphoresis. Patient does have a history of hypertension, hyperlipidemia, A. fib. Patient is not on anticoagulants. TRAVEL OUTSIDE OF THE [place] IN LAST 30 DAYS: No - HPI Patient complains to provider of: Left upper extremity numbness/pain Onset: Yesterday Onset/Duration: Gradual Quality of pain: Dull Severity: None Pain Level: Denies Associated symptoms: None Exacerbated by: Denies Relieved by: Denies Similar symptoms previously: Yes Recently seen / treated by doctor: No - Related Data Allergies/Adverse Reactions: No Known Allergies Allergy (Verified 10/07/17 15:14) Past Medical History - General Information source: Patient - Social History Smoking Status: Former Smoker Chew tobacco use (# tins/day): No Frequency of alcohol use: None Drug Abuse: None Family History: Reviewed & Not Pertinent, CAD - Father Patient has suicidal ideation: No Patient has homicidal ideation: No - Past Medical History Cardiac Medical History: Reports: Hx Atrial Fibrillation, Hx Hypercholesterolemia, Hx Hypertension Denies: Hx Congestive Heart Failure, Hx Coronary Artery Disease, Hx Heart Attack, Hx Peripheral Vascular Disease, Hx Pulmonary Embolism, Hx Heart Murmur Pulmonary Medical History: Reports: Hx COPD, Hx Pneumonia Denies: Hx Asthma, Hx Bronchitis, Hx Respiratory Failure, Hx Sleep Apnea, Hx Tuberculosis Neurological Medical History: Reports: Hx Cerebrovascular Accident, Hx Migraine. Denies: Hx Seizures Endocrine Medical History: Reports: Hx Hypothyroidism Renal/ Medical History: Denies: Hx Peritoneal Dialysis Malignancy Medical History: Denies Hx Lung Cancer GI Medical History: Reports: Hx Gastroesophageal Reflux Disease, Hx Ulcer. Denies: Hx Crohn's Disease, Hx Hiatal Hernia, Hx Irritable Bowel, Hx Liver Failure, Hx Pancreatitis Musculoskeltal Medical History: Reports Hx Arthritis, Denies Hx Fibromyalgia, Denies Hx Muscular Dystrophy Psychiatric Medical History: Denies: Hx Depression Traumatic Medical History: Reports: Hx Fractures Past Surgical History: Reports: Hx Abdominal Surgery - hernia, ulcer, Hx Appendectomy, Hx Cardiac Surgery - pacemaker, Hx Herniorrhaphy, Hx Pacemaker - meditronic, ventricular, Other - Partial gastric resection secondary to ulcer. Denies: Hx Cardiac Catheterization, Hx Colostomy, Hx Coronary Stent - Immunizations Hx Diphtheria, Pertussis, Tetanus Vaccination: No - unknown Hx Pneumococcal Vaccination: 02/28/10 Review of Systems - Review of Systems Constitutional: No symptoms reported EENT: No symptoms reported Cardiovascular: Chest pain Respiratory: No symptoms reported Gastrointestinal: No symptoms reported Musculoskeletal: No symptoms reported Skin: No symptoms reported Hematologic/Lymphatic: No symptoms reported Neurological/Psychological: Numbness -: Yes All other systems reviewed and negative Physical Exam - Vital signs Vitals: Temp Pulse Resp BP Pulse Ox 97.7 F 67 16 100/70 95 10/07/17 15:03 10/07/17 15:03 10/07/17 15:03 10/07/17 15:03 10/07/17 15:03 Interpretation: Normal - Notes Notes: PHYSICAL EXAMINATION: GENERAL: Well-appearing, well-nourished and in no acute distress. HEAD: Atraumatic, normocephalic. EYES: Pupils equal round and reactive to light, extraocular movements intact, sclera anicteric, conjunctiva are normal. ENT: Nares patent, oropharynx clear without exudates. Moist mucous membranes. NECK: Normal range of motion, supple without lymphadenopathy LUNGS: Breath sounds clear to auscultation bilaterally and equal. No wheezes rales or rhonchi. HEART: Regular rate and rhythm without murmurs ABDOMEN: Soft, nontender, nondistended abdomen. No guarding, no rebound. No masses appreciated. Musculoskeletal: Normal range of motion, no pitting or edema. No cyanosis. NEUROLOGICAL: Cranial nerves grossly intact. Normal speech, normal gait. Normal sensory, motor exams PSYCH: Normal mood, normal affect. SKIN: Warm, Dry, normal turgor, no rashes or lesions noted. Course - Re-evaluation Re-evalutation: 10/07/17 18:34 Labs and imaging obtained. Discussed the workup thus far with the patient. His renal failure is elevated from previous. Patient declines admission at this time. I will repeat the troponin and EKG. Patient states that he will follow- up with his box sealing machine feeder and primary care physician outpatient. 10/07/17 18:35 10/07/17 20:07 Second troponin and EKG are WNL. Patient continues to decline admission. Will discharge home. Patient told to continue taking medication as directed, to follow up with his box sealing machine feeder this week, and to return for worsening symptoms. Patient is agreeable with the plan of care. - Vital Signs Vital signs: Temp Pulse Resp BP Pulse Ox 97.7 F 67 19 118/73 97 10/07/17 15:03 10/07/17 15:03 10/07/17 19:01 10/07/17 19:00 10/07/17 19:01 - Laboratory Result Diagrams: 10/07/17 15:58 10/07/17 15:58 Laboratory results interpreted by me: 10/07/17 10/07/17 15:58 15:58 RBC 3.90 L Hgb 12.9 L Hct 37.8 L Eosinophils % 6.1 H Sodium 146.6 H Chloride 109 H BUN 30 H Creatinine 1.60 H Est GFR ( Amer) 52 L Est GFR (Non-Af Amer) 43 L Glucose 69 L Creatine Kinase 36 L - EKG Interpretation by Me Rate: Normal - EKG: Ventricular rate 68, PA interval 176, QRS duration 90, QTc 439, atrial paced rhythm. Left ventricular hypertrophy. No ischemic changes. EKG similar to previous done on 08/12/17 Additional EKG results interpreted by me: 10/07/17 19:01 EKG: Ventricular rate 60, PA interval 176, QRS duration 90, QTc 436, atrial paced rhythm, left ventricular hypertrophy, no ischemic changes, EKG similar to previous. Discharge - Discharge Clinical Impression: Arm numbness left Renal failure Qualifiers: Renal failure chronicity: acute Acute renal failure type: unspecified Qualified Code(s): N17.9 - Acute kidney failure, unspecified Condition: Stable Disposition: HOME, SELF-CARE Instructions: Numbness or Paresthesia ([facility]), Kidney Failure ([facility]) Additional Instructions: Follow up with your box sealing machine feeder and primary care physician this week. Continue taking medication as directed. Return for worsening symptoms. Referrals: MAGDA VALENTIN PA-C [Primary Care Provider] - Follow up as needed
[2017-10-07] MEDS ORDERED: NORMAL SALINE 1000 ML 1,000 ML IV ONE (18:35)
[2017-10-07 20:22] VITALS: BP 138/75
--- NOTE | 2017-10-08 07:19 | EKG REPORT ---
SEVERITY:- ABNORMAL ECG - ATRIAL-PACED RHYTHM LEFT VENTRICULAR HYPERTROPHY : Confirmed by: Shubham Lancaster MD 08-Oct-2017 07:19:24
--- NOTE | 2017-10-08 07:20 | EKG REPORT ---
SEVERITY:- ABNORMAL ECG - ATRIAL-PACED COMPLEXES LEFT VENTRICULAR HYPERTROPHY : Confirmed by: Shubham Lancaster MD 08-Oct-2017 07:19:45
== END 2017-10-07 20:47 | disposition home or self-care (01) ==
LOC: ER 14:55
DX: R20.0 Anesthesia of skin (principal); M79.602 Pain in left arm; N17.9 Acute kidney failure, unspecified; I51.7 Cardiomegaly; J44.9 Chronic obstructive pulmonary disease, unspecified; R07.9 Chest pain, unspecified; G89.29 Other chronic pain; I10 Essential (primary) hypertension; Z87.891 Personal history of nicotine dependence; Z82.49 Family history of ischemic heart disease and other diseases of the circulatory system
CPT/HCPCS: 93005; 99285; 96360; 36415; 82553; 82550; 85025; 80053; 84484; 71045; 93010; A9270; J7030

== ENCOUNTER → 2017-10-19 | Outpatient (CLI) | payer MEDICARE, MEDICAID ==
--- NOTE | 2017-10-19 12:41 | RADIOLOGY REPORT (SQ) ---
EXAM DESCRIPTION: CT CHEST WITHOUT COMPLETED DATE/TIME: 10/19/2017 9:47 am REASON FOR STUDY: BRONCHIECTASIS (J47.9) J47.9 BRONCHIECTASIS, UNCOMPLICATED COMPARISON: Chest films 10/07/2017, 08/12/2017, 06/01/2017, 01/06/2017 CT chest 01/18/2016, 12/17/2013 TECHNIQUE: CT scan performed of the chest without intravenous contrast. Images reviewed with lung, soft tissue and bone windows. Reconstructed coronal and sagittal MPR images reviewed. All images st ored on PACS. All CT scanners at this facility use dose modulation, iterative reconstruction, and/or weight based d osing when appropriate to reduce radiation dose to as low as reasonably achievable (ALARA). [facility]: Dose Right [facility]: CareDose [facility]: Dose Right [facility]: Teradose 4D [facility]: [employer] RADIATION DOSE: CT Rad equipment meets quality standard of care and radiation dose reduction techniq ues were employed. CTDIvol: 5.2 mGy. DLP: 187 mGy-cm. mGy. LIMITATIONS: No technical limitations. FINDINGS: LUNGS AND PLEURA: No acute infiltrates. No pleural effusion or pneumothorax. There is minimal peripheral thickening of the interlobular septa from mild pulmonary fibrosis. This is unchanged from CT chest 12/17/2013. No segmental lung parenchymal bronchiectasis. HILAR AND MEDIASTINAL STRUCTURES: No identified masses or abnormal nodes. No obvious aneurysm. HEART AND VASCULAR STRUCTURES: Ascending thoracic aorta 4 cm in greatest diameter, similar compared t o studies dating back to 2013. Minimal coronary artery calcification. No cardiomegaly or pericardia l effusion. UPPER ABDOMEN: Multiple surgical clips are present at the GE junction, from remote prior vagotomy and Billroth 2 partial gastrectomy. THYROID AND OTHER SOFT TISSUES: No masses. No adenopathy. BONES: No significant finding. HARDWARE: None in the chest. OTHER: No other significant findings. IMPRESSION: Minimal stable peripheral pulmonary fibrosis. No bronchiectasis Stable ascending thoracic aorta ectasia/aneurysm TECHNICAL DOCUMENTATION: JOB ID: [id number] Quality ID # [id number]: Final reports with documentation of one or more dose reduction techniques (e.g., Au tomated exposure control, adjustment of the mA and/or kV according to patient size, use of iterative reconstruction technique) 2010 [employer]- All Rights Reserved Reading location - IP/workstation name: [email or web address]
== END ==
LOC: RAD 09:31
PROVIDERS: ATTEND Physician Assistant
DX: J47.9 Bronchiectasis, uncomplicated (principal)
CPT/HCPCS: 71250

== ENCOUNTER → 2017-11-19 | Outpatient (CLI) | payer MEDICARE, MEDICAID ==
[2017-11-19 09:39] LABS: HEMATOCRIT 39.7 % (37.9-51.0); HEMOGLOBIN 13.4 g/dL (13.5-17.0); MEAN CORPUSCULAR HGB CONC 33.7 g/dL (32.0-36.0); MEAN CORPUSCULAR VOLUME 98 fl (80-97); PLATELET COUNT 158 10^3/uL (150-450); RED BLOOD COUNT 4.06 10^6/uL (4.35-5.55); RED CELL DISTRIBUTION WIDTH 14.3 % (11.5-14.0)
[2017-11-19 09:59] LABS: APPEARANCE,URINE CLEAR; BILIRUBIN,URINE NEGATIVE (NEGATIVE); COLOR,URINE YELLOW; GLUCOSE, URINE NEGATIVE (NEGATIVE); KETONES,URINE NEGATIVE (NEGATIVE); LEUKOCYTE ESTERASE,URINE NEGATIVE (NEGATIVE); NITRITE,URINE NEGATIVE (NEGATIVE); PROTEIN,URINE NEGATIVE (NEGATIVE); URINE SPECIFIC GRAVITY 1.013
[2017-11-19 10:53] LABS: ANION GAP 13 (5-19); BLOOD UREA NITROGEN 28 mg/dL (7-20); CARBON DIOXIDE 27 mmol/L (22-30); CHLORIDE 108 mmol/L (98-107); GLUCOSE 81 mg/dL (75-110); POTASSIUM 4.8 mmol/L (3.6-5.0); SODIUM 147.8 mmol/L (137-145)
[2017-11-20 12:39] LABS: ANTICHROMATIN AB <0.2 AI (0.0-0.9); CENTROMERE B AB <0.2 AI (0.0-0.9); JO-1 ANTIBODY (ANACOMP) <0.2 AI (0.0-0.9); RNP AB <0.2 AI (0.0-0.9); SJOGREN'S ANTI-SS-B AB <0.2 AI (0.0-0.9); SJOGREN'S SS-A ANTIBODY <0.2 AI (0.0-0.9); SMITH AB ANA <0.2 AI (0.0-0.9)
[2017-11-20 14:13] LABS: DNA DOUBLE STRAND ANTIBODY ANA 1 IU/mL (0-9)
[2017-11-21 19:36] LABS: CYTOPLASMIC (C-ANCA) <1:20 titer (Neg:<1:20)
[2017-11-22 08:14] LABS: ATYPICAL PANCA <1:20 titer (Neg:<1:20); PERINUCLEAR (P-ANCA) <1:20 titer (Neg:<1:20)
== END ==
LOC: OD 08:20
PROVIDERS: ATTEND Internal Medicine Nephrology
DX: N18.3 Chronic kidney disease, stage 3 (moderate) (principal); I95.1 Orthostatic hypotension; I48.91 Unspecified atrial fibrillation; R94.2 Abnormal results of pulmonary function studies
CPT/HCPCS: 36415; 80048; 81001; 82533; 85027; 86021; 86225; 86235; 86430

== ENCOUNTER → 2017-12-22 | Outpatient (CLI) | payer MEDICARE, MEDICAID ==
[2017-12-22 09:53] LABS: ANION GAP 11 (5-19); BLOOD UREA NITROGEN 23 mg/dL (7-20); CARBON DIOXIDE 28 mmol/L (22-30); CHLORIDE 107 mmol/L (98-107); GLUCOSE 80 mg/dL (75-110); POTASSIUM 4.8 mmol/L (3.6-5.0); SODIUM 146.3 mmol/L (137-145)
== END ==
LOC: OD 08:01
PROVIDERS: ATTEND Internal Medicine Nephrology
DX: I12.9 Hypertensive chronic kidney disease with stage 1 through stage 4 chronic kidney disease, or unspecified chronic kidney disease (principal); N18.3 Chronic kidney disease, stage 3 (moderate)
CPT/HCPCS: 36415; 80048

== ENCOUNTER 2018-01-15 16:34 | Inpatient (IN) | payer MEDICARE, MEDICAID ==
[2018-01-15] MEDS ORDERED: NORMAL SALINE 1000 ML 1,000 ML IV PRN (18:10)
--- NOTE | 2018-01-15 18:10 | ER Document Report ---
ED Medical Screen (RME) - General Chief Complaint: Tremor Stated Complaint: FEVER,SHAKING Time Seen by Provider: 01/15/18 18:07 Notes: 72 years old elderly female presents today with fever chills and shivering since yesterday. Coughing on and off. Has diffuse abdominal discomfort. No nausea vomiting diarrhea. But constipated. On examination elderly male seems to be mild to moderate discomfort. TRAVEL OUTSIDE OF THE [place] IN LAST 30 DAYS: No - Related Data Allergies/Adverse Reactions: No Known Allergies Allergy (Verified 01/15/18 16:37) Past Medical History - Social History Chew tobacco use (# tins/day): No Frequency of alcohol use: None Drug Abuse: None Family history: Reviewed & Not Pertinent - Past Medical History Cardiac Medical History: Reports: Hx Atrial Fibrillation, Hx Hypercholesterolemia, Hx Hypertension Denies: Hx Congestive Heart Failure, Hx Coronary Artery Disease, Hx Heart Attack, Hx Peripheral Vascular Disease, Hx Pulmonary Embolism, Hx Heart Murmur Pulmonary Medical History: Reports: Hx COPD, Hx Pneumonia Denies: Hx Asthma, Hx Bronchitis, Hx Respiratory Failure, Hx Sleep Apnea, Hx Tuberculosis Neurological Medical History: Reports: Hx Cerebrovascular Accident, Hx Migraine. Denies: Hx Seizures Endocrine Medical History: Reports: Hx Hypothyroidism Renal/ Medical History: Denies: Hx Peritoneal Dialysis Malignancy Medical History: Denies Hx Lung Cancer GI Medical History: Reports: Hx Gastroesophageal Reflux Disease, Hx Ulcer. Denies: Hx Crohn's Disease, Hx Hiatal Hernia, Hx Irritable Bowel, Hx Liver Failure, Hx Pancreatitis Musculoskeltal Medical History: Reports Hx Arthritis, Denies Hx Fibromyalgia, Denies Hx Muscular Dystrophy Psychiatric Medical History: Denies: Hx Depression Traumatic Medical History: Reports: Hx Fractures Past Surgical History: Reports: Hx Abdominal Surgery - hernia, ulcer, Hx Appendectomy, Hx Cardiac Surgery - pacemaker, Hx Herniorrhaphy, Hx Pacemaker - meditronic, ventricular, Other - Partial gastric resection secondary to ulcer. Denies: Hx Cardiac Catheterization, Hx Colostomy, Hx Coronary Stent - Immunizations Hx Diphtheria, Pertussis, Tetanus Vaccination: No - unknown Physical Exam - Vital signs Vitals: Temp Pulse Resp BP Pulse Ox 97.7 F 68 20 101/50 L 94 01/15/18 16:47 01/15/18 16:47 01/15/18 16:47 01/15/18 16:47 01/15/18 16:47 Course - Vital Signs Vital signs: Temp Pulse Resp BP Pulse Ox 97.7 F 68 20 101/50 L 94 01/15/18 16:47 01/15/18 16:47 01/15/18 16:47 01/15/18 16:47 01/15/18 16:47 Doctor's Discharge - Discharge Referrals: Omar DEGROOT MD [Primary Care Provider] - Follow up as needed
[2018-01-15 18:38] LABS: APPEARANCE,URINE SLIGHTLY-CLOUDY; BILIRUBIN,URINE NEGATIVE (NEGATIVE); COLOR,URINE YELLOW; GLUCOSE, URINE NEGATIVE (NEGATIVE); KETONES,URINE NEGATIVE (NEGATIVE); LEUKOCYTE ESTERASE,URINE NEGATIVE (NEGATIVE); NITRITE,URINE NEGATIVE (NEGATIVE); PROTEIN,URINE NEGATIVE (NEGATIVE); URINE SPECIFIC GRAVITY 1.025
[2018-01-15 19:27] LABS: ABSOLUTE BASOPHILS # (AUTO) 0.1 10^3/uL (0.0-0.2); ABSOLUTE LYMPHOCYTES (AUTO) 1.7 10^3/uL (0.5-4.7); ABSOLUTE MONOCYTES (AUTO) 0.9 10^3/uL (0.1-1.4); ABSOLUTE NEUT (AUTO) 12.5 10^3/uL (1.7-8.2); BASOPHILS % (AUTO) 0.4 % (0-2); HEMATOCRIT 41.2 % (37.9-51.0); HEMOGLOBIN 13.8 g/dL (13.5-17.0); LYMPHOCYTES % (AUTO) 11.4 % (13-45); MEAN CORPUSCULAR HEMOGLOBIN 33.2 pg (27.0-33.4); MEAN CORPUSCULAR HGB CONC 33.4 g/dL (32.0-36.0); MEAN CORPUSCULAR VOLUME 99 fl (80-97); MONOCYTES % (AUTO) 6.1 % (3-13); PLATELET COUNT 150 10^3/uL (150-450); RED BLOOD COUNT 4.15 10^6/uL (4.35-5.55); RED CELL DISTRIBUTION WIDTH 13.7 % (11.5-14.0); SEGMENTED NEUTROPHILS % (AUTO) 82.1 % (42-78); TOTAL CELLS COUNTED % (AUTO) 100 %; WHITE BLOOD COUNT 15.2 10^3/uL (4.0-10.5)
--- NOTE | 2018-01-15 19:33 | RADIOLOGY REPORT (SQ) ---
EXAM DESCRIPTION: CHEST 2 VIEWS COMPLETED DATE/TIME: 01/15/2018 7:20 pm REASON FOR STUDY: cough COMPARISON: 08/12/2017 EXAM PARAMETERS: NUMBER OF VIEWS: two views TECHNIQUE: Digital Frontal and Lateral radiographic views of the chest acquired. RADIATION DOSE: NA LIMITATIONS: none FINDINGS: LUNGS AND PLEURA: No opacities, masses or pneumothorax. No pleural effusion. MEDIASTINUM AND HILAR STRUCTURES: There is some linear lucency on each side of the upper mediastinum extending up into the neck. HEART AND VASCULAR STRUCTURES: Heart normal size. No evidence for failure. BONES: No acute findings. HARDWARE: Pacemaker. OTHER: No other significant finding. IMPRESSION: There is some linear lucency on each side of the upper mediastinum likely related to a g arment. Pneumomediastinum seems less likely. Correlate clinically. TECHNICAL DOCUMENTATION: JOB ID: [id number] [employer]- All Rights Reserved Reading location - IP/workstation name: [email or web address]
[2018-01-15 19:46] LABS: ALANINE AMINOTRANSFERASE 18 U/L (21-72); ALBUMIN 4.3 g/dL (3.5-5.0); ALKALINE PHOSPHATASE 47 U/L (38-126); ANION GAP 15 (5-19); ASPARTATE AMINO TRANSFERASE 30 U/L (17-59); BLOOD UREA NITROGEN 33 mg/dL (7-20); CALCIUM 9.2 mg/dL (8.4-10.2); CARBON DIOXIDE 20 mmol/L (22-30); CHLORIDE 107 mmol/L (98-107); GLUCOSE 112 mg/dL (75-110); POTASSIUM 4.8 mmol/L (3.6-5.0)
[2018-01-15 19:47] LABS: BILIRUBIN,DIRECT 0.6 mg/dL (0.0-0.4); BILIRUBIN,TOTAL 1.1 mg/dL (0.2-1.3); TOTAL PROTEIN 7.8 g/dL (6.3-8.2)
[2018-01-15] MEDS ORDERED: ONDANSETRON HCL INJ/PF 4 MG/2 ML SDV IV ONE (21:40)
[2018-01-15] MEDS ORDERED: ACETAMINOPHEN 325 MG TABLET PO ONE (21:43)
--- NOTE | 2018-01-15 21:45 | ER Document Report ---
ED General - General Chief Complaint: Tremor Stated Complaint: FEVER,SHAKING Time Seen by Provider: 01/15/18 18:07 Notes: Patient is a 72-year-old male that comes emergency department for chief complaint of feeling feverish, feeling nauseated, having no appetite today, and having generalized abdominal pain. He also reports some cough. He denies any particular area of abdominal pain, denies flank pain, headache, difficulty breathing, cough, shortness of breath, chest pain, dysuria, sore throat. Past medical history includes atrial fibrillation, hypertension, COPD, pacemaker, bowel surgery for peptic ulcers, appendectomy. Daughter at bedside. TRAVEL OUTSIDE OF THE [place] IN LAST 30 DAYS: No - Related Data Allergies/Adverse Reactions: No Known Allergies Allergy (Verified 01/15/18 16:37) Past Medical History - General Information source: Patient - Social History Smoking Status: Never Smoker Chew tobacco use (# tins/day): No Frequency of alcohol use: None Drug Abuse: None Lives with: Family Family History: Reviewed & Not Pertinent, CAD - Father Patient has suicidal ideation: No Patient has homicidal ideation: No - Past Medical History Cardiac Medical History: Reports: Hx Atrial Fibrillation, Hx Hypercholesterolemia, Hx Hypertension Denies: Hx Congestive Heart Failure, Hx Coronary Artery Disease, Hx Heart Attack, Hx Peripheral Vascular Disease, Hx Pulmonary Embolism, Hx Heart Murmur Pulmonary Medical History: Reports: Hx COPD, Hx Pneumonia Denies: Hx Asthma, Hx Bronchitis, Hx Respiratory Failure, Hx Sleep Apnea, Hx Tuberculosis Neurological Medical History: Reports: Hx Cerebrovascular Accident, Hx Migraine. Denies: Hx Seizures Endocrine Medical History: Reports: Hx Hypothyroidism Renal/ Medical History: Denies: Hx Peritoneal Dialysis Malignancy Medical History: Denies Hx Lung Cancer GI Medical History: Reports: Hx Gastroesophageal Reflux Disease, Hx Ulcer. Denies: Hx Crohn's Disease, Hx Hiatal Hernia, Hx Irritable Bowel, Hx Liver Failure, Hx Pancreatitis Musculoskeletal Medical History: Reports Hx Arthritis, Denies Hx Fibromyalgia, Denies Hx Muscular Dystrophy Psychiatric Medical History: Denies: Hx Depression Traumatic Medical History: Reports: Hx Fractures Past Surgical History: Reports: Hx Abdominal Surgery - hernia, ulcer, Hx Appendectomy, Hx Cardiac Surgery - pacemaker, Hx Herniorrhaphy, Hx Pacemaker - meditronic, ventricular, Other - Partial gastric resection secondary to ulcer. Denies: Hx Cardiac Catheterization, Hx Colostomy, Hx Coronary Stent - Immunizations Hx Diphtheria, Pertussis, Tetanus Vaccination: No - unknown Hx Pneumococcal Vaccination: 02/28/10 Review of Systems - Review of Systems Constitutional: See HPI EENT: No symptoms reported Cardiovascular: No symptoms reported Respiratory: No symptoms reported Gastrointestinal: No symptoms reported Genitourinary: No symptoms reported Male Genitourinary: No symptoms reported Musculoskeletal: No symptoms reported Skin: No symptoms reported Hematologic/Lymphatic: No symptoms reported Neurological/Psychological: No symptoms reported Physical Exam - Vital signs Vitals: Temp Pulse Resp BP Pulse Ox 97.7 F 68 20 101/50 L 94 01/15/18 16:47 01/15/18 16:47 01/15/18 16:47 01/15/18 16:47 01/15/18 16:47 - Notes Notes: GENERAL: Patient alert, slightly ill-appearing, conversational, cooperative, not in any distress HEAD: Normocephalic, atraumatic. EYES: Pupils equal, round, and reactive to light. Extraocular movements intact. ENT: Oral mucosa moist, tongue midline. NECK: Full range of motion. Supple. Trachea midline. LUNGS: Clear to auscultation bilaterally, no wheezes, rales, or rhonchi. No respiratory distress. Occasional cough. HEART: Regular rate and rhythm. No murmur ABDOMEN: Soft, non-tender. Non-distended. Bowel sounds present in all 4 quadrants. EXTREMITIES: Moves all 4 extremities spontaneously. No edema, normal radial and dorsalis pedis pulses bilaterally. No cyanosis. BACK: no cervical, thoracic, lumbar midline tenderness. No saddle anesthesia, normal distal neurovascular exam. NEUROLOGICAL: Alert and oriented x3. Normal speech. [cranial nerves II through XII grossly intact]. Patient tremulous with reported chronic tremor, worsens with intention movements PSYCH: Normal affect, normal mood. SKIN: Warm, dry, normal turgor. No rashes or lesions noted. Course - Re-evaluation Re-evalutation: Leukocytosis at 15,000 with left shift, no bandemia. Chemistry shows slightly worse renal functioning than normal, given IV fluids, his bicarb was 20 as well. He states he has not 8/drink much during the day. Urinalysis unremarkable. No abnormal skin/cellulitis noted, no nuchal rigidity or headache, patient is not altered, he has generalized abdominal tenderness, CAT scan with no acute or infectious etiology, urine clean, chest x-ray does not show pneumonia. However with his cough intermittently at home and negative workup otherwise I suspect clinically he has pneumonia. When I asked patient how he feels he specifically repeats "I feel like I have pneumonia". Treated with Levaquin. 01/16/18 01:00 Patient continues to spike higher fevers despite treatment with Tylenol. He is weak, he is already not eating or performing his normal activity at home, nieces concerning her home, patient does not have septic shock at this time with normal blood pressure, no tachycardia, however intermittently he has some hypoxia. He is placed on oxygen, he does wear 1 L at night at home. Discussed with Dr. Hartman, hospitalist, patient will be admitted for suspected pneumonia, spiking fevers, weakness. Admitted to telemetry full admission. - Vital Signs Vital signs: Temp Pulse Resp BP Pulse Ox 98.2 F 68 17 110/63 98 01/16/18 04:18 01/15/18 16:47 01/16/18 06:16 01/16/18 06:16 01/16/18 06:16 - Laboratory Result Diagrams: 01/16/18 05:52 01/15/18 18:38 Laboratory results interpreted by me: 01/15/18 01/15/18 01/15/18 18:24 18:38 18:38 WBC 15.2 H RBC 4.15 L MCV 99 H Seg Neutrophils % 82.1 H Lymphocytes % 11.4 L Absolute Neutrophils 12.5 H Carbon Dioxide 20 L BUN 33 H Creatinine 1.97 H Est GFR ( Amer) 40 L Est GFR (Non-Af Amer) 33 L Glucose 112 H Direct Bilirubin 0.6 H ALT 18 L Urine Blood SMALL H Urine Urobilinogen 2.0 H Discharge - Discharge Clinical Impression: Cough, Weakness Fever Qualifiers: Fever type: unspecified Qualified Code(s): R50.9 - Fever, unspecified Leukocytosis Qualifiers: Leukocytosis type: unspecified Qualified Code(s): D72.829 - Elevated white blood cell count, unspecified Condition: Stable Disposition: ADMITTED INPATIENT Admitting Provider: Hospitalist Unit Admitted: Telemetry
--- NOTE | 2018-01-15 23:38 | RADIOLOGY REPORT (SQ) ---
EXAM DESCRIPTION: CT ABDOMEN PELVIS WITH IV CONTRAST COMPLETED DATE/TME: 01/15/2018 21:43 CLINICAL HISTORY: generalized abd pain, fever, nausea, leukocytosis COMPARISON: None Available. TECHNIQUE: CT of the abdomen and pelvis performed following IV administration of 68 mL of Omnipaque 300. Portal venous and delayed images obtained. DLP: 623.14 mGycm FINDINGS: Lung Bases: Bilateral dependent atelectasis. Pacemaker leads. Cardiomegaly. Coronary artery atherosclerosis. Partial visualization of the left subclavian generator. Bones: Degenerative endplate spondylosis and facet arthropathy throughout the visualized thoracic and lumbar spine. Abdomen: Liver: The liver has normal size and density. No intrahepatic mass or biliary dilatation. Gallbladder: No calcified gallstones. Spleen, Pancreas, and Adrenal Glands: The spleen, pancreas, and adrenal glands are unremarkable. Kidneys: The kidneys have normal size and contour without evidence of solid mass or hydronephrosis. Vasculature: Aortoiliac atherosclerosis. IVC is unremarkable. The portal vein is patent. The proximal visceral and renal arteries are patent. Stomach: Gastric bypass surgery. Other: No free intraperitoneal air. No free fluid or lymphadenopathy. Prior ventral hernia repair. Small ventral hernia containing loops of nondilated small bowel and mesenteric fat. Pelvis: Bladder: Urinary bladder is unremarkable. Bowel: No dilated loops of large or small bowel. Appendix: The appendix is not identified. Pelvis: Enlarged prostate. IMPRESSION: 1. No acute inflammatory or obstructive process identified. 2. Enlarged prostate. This exam was performed according to our departmental dose-optimization program, which includes automated exposure control, adjustment of the mA and/or kV according to patient size and/or use of iterative reconstruction technique.
[2018-01-16] MEDS ORDERED: ACETAMINOPHEN 325 MG TABLET PO ONE (00:51)
[2018-01-16] MEDS ORDERED: LEVOFLOXACIN 750 MG/D5W RTU 750 MG/150 ML RTUPB IV ONE (00:51)
[2018-01-16] MEDS ORDERED: KETOROLAC TROMETHAMINE INJ/PF 30 MG/1 ML SDV IV ONE (00:51)
[2018-01-16] MEDS ORDERED: ACETAMINOPHEN 325 MG TABLET PO PRN (03:05)
[2018-01-16] MEDS ORDERED: IPRATROPIUM/ALBUTEROL 0.5-2.5 MG/3 ML AMPUL NEB PRN (03:05)
[2018-01-16] MEDS ORDERED: PROMETHAZINE HCL 25 MG TABLET PO PRN (03:05)
[2018-01-16] MEDS ORDERED: MAG HYDROX/AL HYDROX/SIMETH SUSP 30 ML UDCUP PO PRN (03:05)
[2018-01-16] MEDS ORDERED: CIPROFLOXACIN 400 MG/D5W RTU 400 MG/200 ML RTUPB IV ONE (04:00)
[2018-01-16] MEDS ORDERED: NORMAL SALINE 1000 ML 1,000 ML IV ONE ×2 (04:21→09:16)
--- NOTE | 2018-01-16 04:31 | PDOC H&P ---
History of Present Illness Admission Date/PCP: 01/16/18 01:19 DELFINO BLACKMON PA-C Patient complains of: "Not feeling good" History of Present Illness: LIONEL ACEVEDO is a 72 year old male who comes to the emergency department as he was feeling bad for 1 day. Patient is a very poor historian. States that she has been having subjective fevers, decreased appetite, diarrhea for 2 days, he could not tell me how many bowel movements, he believes that 2 bowel movements, and a large one in the ED, periumbilical abdominal pain, crampy, apparently associated with his bowel movements, 4/10 intensity, intermittent, denies blood on it. CT abdomen and pelvis negative. Has been having a little bit of cough, a little yellowish phlegm, denies shortness of breath, wheezing, chest pain. Chest x-ray negative for acute infiltrates. In the emergency department P103.1, 102.3. Oxygen saturation 88% on room air but patient tells me that he uses 1 L oxygen at night. Urinalysis cloudy with high specific gravity. Lactic acid 2. On chronic anticoagulation with apixaban for chronic atrial fibrillation. Past Medical History Cardiac Medical History: Reports: Atrial Fibrillation, Hyperlipidema, Hypertension Denies: Congestive Heart Failure, Coronary Artery Disease, Myocardial Infarction, Peripheral Vascular Disease, Pulmonary Embolism, Heart Murmur Pulmonary Medical History: Reports: Chronic Obstructive Pulmonary Disease (COPD) , Pneumonia Denies: Asthma, Bronchitis, Respiratory Failure, Sleep Apnea, Tuberculosis Neurological Medical History: Reports: Migraine Denies: Seizures Endocrine Medical History: Reports: Hypothyroidism Malignancy Medical History: Denies: Lung Cancer GI Medical History: Reports: Gastroesophageal Reflux Disease Denies: Crohn's Disease, Hiatal Hernia Musculoskeltal Medical History: Reports: Arthritis Denies: Fibromyalgia Psychiatric Medical History: Denies: Depression Past Surgical History Past Surgical History: Reports: Appendectomy, Herniorrhaphy, Pacemaker - meditronic, ventricular, Other - Partial gastric resection secondary to ulcer Denies: Cardiac Catheterization, Colostomy, Coronary Stent Social History Information Source: Patient Smoking Status: Never Smoker Frequency of Alcohol Use: None Hx Recreational Drug Use: No Drugs: None Hx Prescription Drug Abuse: No Family History Family History: Reviewed & Not Pertinent, CAD - Father Parental Family History Reviewed: No Children Family History Reviewed: NA Sibling(s) Family History Reviewed.: NA Medication/Allergy Home Medications: Amiodarone HCl [Cordarone 200 mg Tablet] 200 mg PO DAILY 07/31/16 Apixaban [Eliquis 5 mg Tablet] 5 mg PO BID 07/31/16 Levothyroxine Sodium [Synthroid] 75 mcg PO DAILY 07/31/16 Metoprolol Succinate [Toprol Xl 25 mg Tab.sr] 25 mg PO Q12 07/31/16 Pantoprazole Sodium [Protonix] 40 mg PO DAILY 07/31/16 Albuterol Sulfate [Ventolin Hfa] 2 puff IN Q4HP PRN 01/06/17 Acetaminophen [Tylenol Extra Strength 500 mg Tablet] 1 tab PO Q8 PRN #60 tab Divalproex Sodium [Divalproex Sodium ER] 500 mg PO BID 08/12/17 Gabapentin 100 mg PO BID 08/12/17 Midodrine HCl [Proamatine 5 Mg Tablet] 5 mg PO BID 01/16/18 Allergies/Adverse Reactions: No Known Allergies Allergy (Verified 01/15/18 16:37) Review of Systems Review of Systems: As outlined in the HPI, others negative Physical Exam Vital Signs: Temp Pulse Resp BP Pulse Ox 102.3 F H 68 19 93/47 L 94 01/16/18 02:00 01/15/18 16:47 01/16/18 03:01 01/16/18 03:01 01/16/18 03:01 Intake & Output 01/14/18 01/15/18 01/16/18 06:59 06:59 06:59 Intake Total 1150 Balance 1150 Additional comments: General appearance: Well-developed, well-nourished, alert and cooperative, and appears to be in no acute distress Head: Normocephalic Eyes: PEERL, EOMI, vision is grossly intact. Ears: External auditory canal and tympanic membranes clear, hearing grossly intact. Nose: No nasal discharge. Throat: Oral cavity and pharynx normal. No inflammation, swelling, exudate or lesions. Neck: Neck supple, nontender without lymphadenopathy, masses or thyromegaly. Cardiac: Normal S1 and S2. No S3, S4 or murmurs. Rhythm is regular. There is no peripheral edema, cyanosis or pallor. Extremities are warm and well perfused. Capillary refill is less than 2 seconds. No carotid bruits. Lungs: Clear to auscultation and percussion without rales, rhonchi, wheezing or diminished breath sounds. Not using accessory muscles. Abdomen: Positive bowel sounds. Soft. Nondistended, mild tenderness in the infraumbilical area. No guarding or rebound. No masses. No hepatosplenomegaly Extremities: No significant deformity or joint abnormality. No edema. Peripheral pulses intact. No varicosities. Neurological: Cranial nerves II through XII grossly intact. Strength and sensation symmetric and intact throughout. Reflexes 2+ throughout. Skin: Skin normal color, texture and turgor with no lesions or eruptions, warm and dry. Psychiatric: The mental examination revealed the patient was oriented to person , place, and time. The patient was able to demonstrate good judgment on recent , without hallucinations, abnormal affect or abnormal behaviors. Results Laboratory Results: 01/15/18 01/15/18 01/15/18 18:24 18:38 18:38 WBC 15.2 H RBC 4.15 L Hgb 13.8 Hct 41.2 MCV 99 H MCH 33.2 MCHC 33.4 RDW 13.7 Plt Count 150 Seg Neutrophils % 82.1 H Lymphocytes % 11.4 L Monocytes % 6.1 Eosinophils % 0.0 Basophils % 0.4 Absolute Neutrophils 12.5 H Absolute Lymphocytes 1.7 Absolute Monocytes 0.9 Absolute Eosinophils 0.0 Absolute Basophils 0.1 Sodium 142.0 Potassium 4.8 Chloride 107 Carbon Dioxide 20 L Anion Gap 15 BUN 33 H Creatinine 1.97 H Est GFR ( Amer) 40 L Est GFR (Non-Af Amer) 33 L Glucose 112 H Lactic Acid Calcium 9.2 Total Bilirubin 1.1 Direct Bilirubin 0.6 H AST 30 ALT 18 L Alkaline Phosphatase 47 Total Protein 7.8 Albumin 4.3 Urine Color YELLOW Urine Appearance SLIGHTLY-CLOUDY Urine pH 5.0 Ur Specific Coleman 1.025 Urine Protein NEGATIVE Urine Glucose (UA) NEGATIVE Urine Ketones NEGATIVE Urine Blood SMALL H Urine Nitrite NEGATIVE Urine Bilirubin NEGATIVE Urine Urobilinogen 2.0 H Ur Leukocyte Esterase NEGATIVE Urine WBC (Auto) 2 Urine RBC (Auto) 2 U Hyaline Cast (Auto) 4 Urine Bacteria (Auto) TRACE Squamous Epi Cells Auto 1 Urine Mucus (Auto) OCC Urine Ascorbic Acid NEGATIVE 01/15/18 23:55 WBC RBC Hgb Hct MCV MCH MCHC RDW Plt Count Seg Neutrophils % Lymphocytes % Monocytes % Eosinophils % Basophils % Absolute Neutrophils Absolute Lymphocytes Absolute Monocytes Absolute Eosinophils Absolute Basophils Sodium Potassium Chloride Carbon Dioxide Anion Gap BUN Creatinine Est GFR ( Amer) Est GFR (Non-Af Amer) Glucose Lactic Acid 2.0 Calcium Total Bilirubin Direct Bilirubin AST ALT Alkaline Phosphatase Total Protein Albumin Urine Color Urine Appearance Urine pH Ur Specific Coleman Urine Protein Urine Glucose (UA) Urine Ketones Urine Blood Urine Nitrite Urine Bilirubin Urine Urobilinogen Ur Leukocyte Esterase Urine WBC (Auto) Urine RBC (Auto) U Hyaline Cast (Auto) Urine Bacteria (Auto) Squamous Epi Cells Auto Urine Mucus (Auto) Urine Ascorbic Acid Impressions: Chest X-Ray 01/15/18 18:09 IMPRESSION: There is some linear lucency on each side of the upper mediastinum likely related to a garment. Pneumomediastinum seems less likely. Correlate clinically. Abdomen/Pelvis CT 01/15/18 21:43 IMPRESSION: 1. No acute inflammatory or obstructive process identified. 2. Enlarged prostate. This exam was performed according to our departmental dose-optimization program, which includes automated exposure control, adjustment of the mA and/or kV according to patient size and/or use of iterative reconstruction technique. Assessment & Plan - Diagnosis (1) Sepsis Qualifiers: Sepsis type: sepsis due to unspecified organism Qualified Code(s): A41.9 - Sepsis, unspecified organism Is this a current diagnosis for this admission?: Yes Plan: Patient is a criteria with fever, leukocytosis and possible focus of infection. At the time of this dictation blood pressure has dropped probably meets the criteria for severe sepsis. Patient severely dehydrated. (2) Acute diarrhea Is this a current diagnosis for this admission?: Yes Plan: Patient meets the criteria for sepsis, doubt that is these secondary to pneumonia the patient has minimal respiratory symptoms. Patient's main complaint is abdominal pain and diarrhea. Probably bacterial diarrhea, patient has received IV Levaquin in the ED and I will continue with IV ciprofloxacin. C. difficile order as well as a stool cultures. (3) Chronic respiratory failure Is this a current diagnosis for this admission?: Yes Plan: On 1 L oxygen at home. Initially saturating 88% on room air but saturating 93% on 1 L oxygen via nasal cannula, probably his baseline. If respiratory symptoms worsen consider repeating chest x-ray for pneumonia. (4) Acute worsening of stage 3 chronic kidney disease Is this a current diagnosis for this admission?: Yes Plan: BUN 33 and creatinine 1.97, 12/22 BUN was 23 and creatinine 1.24. Patient is receiving IV fluids hydration, reassess renal panel in the morning. (5) Dehydration Is this a current diagnosis for this admission?: Yes Plan: Patient looks very dehydrated, has received 1 L of IV fluids, I will give the second liter and thoroughly that if patient continues to be hypotensive. As at the time of this dictation blood pressure was 89/57 (6) COPD (chronic obstructive pulmonary disease) Qualifiers: COPD type: unspecified COPD Qualified Code(s): J44.9 - Chronic obstructive pulmonary disease, unspecified Is this a current diagnosis for this admission?: Yes Plan: Patient has minimal respiratory symptoms, I do not feel that he has pneumonia, symptoms seems more chronic and secondary to his COPD. Continue with Spiriva, Ventolin, oxygen protocol, nebulizer treatments as needed. Not on the steroids. (7) Hypertension Qualifiers: Hypertension type: essential hypertension Qualified Code(s): I10 - Essential (primary) hypertension Is this a current diagnosis for this admission?: Yes Plan: Blood pressure medications will be placed on hold, on metoprolol. At the time of this dictation the nurse called me because blood pressure was 89/57, patient had only 1 L of IV fluid bolus, will leave the second liter. (8) Chronic atrial fibrillation Is this a current diagnosis for this admission?: Yes Plan: Continue with apixaban and amiodarone - Time Time Spent: 30 to 50 Minutes - Inpatient Certification Based on my medical assessment, after consideration of the patient's comorbidities, presenting symptoms, or acuity I expect that the services needed warrant INPATIENT care.: Yes I certify that my determination is in accordance with my understanding of Medicare's requirements for reasonable and necessary INPATIENT services [42 CFR 412.3e].: Yes Medical Necessity: Risk of Complication if Not Cared For in Hospital
[2018-01-16] MEDS ORDERED: DEXTROSE 5%-WATER 250 ML with NOREPINEPHRINE BITARTRATE 4 MG IV PRN ×2 (04:53)
[2018-01-16] MEDS ORDERED: NOREPINEPHRINE BITARTRATE INJ/PF 4 MG/4 ML SDV IV ONE (04:55)
[2018-01-16] MEDS: NORMAL SALINE 1000 ML 1,000 ML IV PRN ×2 (05:00→12:48)
[2018-01-16] MEDS ORDERED: MIDODRINE HCL 5 MG TABLET PO ONE ×2 (05:19→16:21)
[2018-01-16 06:12] LABS: ABSOLUTE LYMPHOCYTES (AUTO) 0.4 10^3/uL (0.5-4.7); ABSOLUTE MONOCYTES (AUTO) 0.3 10^3/uL (0.1-1.4); ABSOLUTE NEUT (AUTO) 5.9 10^3/uL (1.7-8.2); BASOPHILS % (AUTO) 0.3 % (0-2); EOSINOPHILS % (AUTO) 0.1 % (0-6); HEMATOCRIT 33.1 % (37.9-51.0); LYMPHOCYTES % (AUTO) 5.8 % (13-45); MEAN CORPUSCULAR HEMOGLOBIN 33.6 pg (27.0-33.4); MEAN CORPUSCULAR HGB CONC 34.4 g/dL (32.0-36.0); MEAN CORPUSCULAR VOLUME 98 fl (80-97); MONOCYTES % (AUTO) 5.1 % (3-13); PLATELET COUNT 117 10^3/uL (150-450); RED CELL DISTRIBUTION WIDTH 13.7 % (11.5-14.0); SEGMENTED NEUTROPHILS % (AUTO) 88.7 % (42-78); TOTAL CELLS COUNTED % (AUTO) 100 %; WHITE BLOOD COUNT 6.6 10^3/uL (4.0-10.5)
[2018-01-16 06:14] LABS: HEMOGLOBIN 11.4 g/dL (13.5-17.0)
[2018-01-16 06:30] LABS: ALANINE AMINOTRANSFERASE 19 U/L (21-72); ALBUMIN 2.9 g/dL (3.5-5.0); ALKALINE PHOSPHATASE 30 U/L (38-126); ANION GAP 7 (5-19); ASPARTATE AMINO TRANSFERASE 26 U/L (17-59); BILIRUBIN,DIRECT 0.4 mg/dL (0.0-0.4); BILIRUBIN,TOTAL 0.5 mg/dL (0.2-1.3); BLOOD UREA NITROGEN 39 mg/dL (7-20); CALCIUM 7.7 mg/dL (8.4-10.2); CARBON DIOXIDE 23 mmol/L (22-30); CHLORIDE 111 mmol/L (98-107); GLUCOSE 119 mg/dL (75-110); SODIUM 141.2 mmol/L (137-145); TOTAL PROTEIN 5.8 g/dL (6.3-8.2)
[2018-01-16] MEDS: APIXABAN 5 MG TABLET PO SCH ×2 (09:42→18:06)
[2018-01-16] MEDS: GABAPENTIN 100 MG CAPSULE PO SCH ×2 (09:43→18:06)
[2018-01-16] MEDS: LEVOTHYROXINE SODIUM 0.05 MG TABLET PO SCH (09:43)
[2018-01-16] MEDS: AMIODARONE HCL 200 MG TABLET PO SCH (09:44)
[2018-01-16] MEDS: DIVALPROEX SODIUM 500 MG TAB.SR.24H PO SCH ×2 (09:44→18:05)
[2018-01-16] MEDS: LANSOPRAZOLE 30 MG TAB.RAP.DR PO SCH (09:44)
[2018-01-16] MEDS: MIDODRINE HCL 5 MG TABLET PO SCH ×2 (09:50→17:07)
[2018-01-16] MEDS: METOPROLOL SUCCINATE 25 MG TAB.SR.24H PO SCH ×2 (09:51→21:36)
[2018-01-16] MEDS ORDERED: MIDODRINE HCL 5 MG TABLET PO SCH (10:00)
[2018-01-16] MEDS: CIPROFLOXACIN 400 MG/D5W RTU 400 MG/200 ML RTUPB IV SCH (17:27)
--- NOTE | 2018-01-16 20:44 | Progress Note ---
Provider Note Provider Note: Agree with stopperer assembler plan of care: 1. Sepsis: Patient meets criteria with fever, leukocytosis and hypotension. Started on empiric antibiotics. Fluid resuscitation with 2L IVF. Does not require vasopressors at this time. 2. Diarrhea: Patient endorses abdominal pain and diarrhea. Possible bacterial diarrhea. IV Levaquin in the ED. Continue with IV ciprofloxacin. C. difficile PCR and stool cultures pending. 3. COPD: Continue Spiriva, Ventolin, home dose oxygen, as needed nebulizer treatments. No wheezing present at this time. No evidence of exacerbation. Currently not on steroids. 4. Hypotension: Likely secondary to dehydration and missed dose of Midodrine. Continue IV resuscitation and plan for stat dose of Midodrine 5. AFIB: Continue apixaban and amiodarone
[2018-01-17] MEDS: NORMAL SALINE 1000 ML 1,000 ML IV PRN (04:25)
[2018-01-17] MEDS: CIPROFLOXACIN 400 MG/D5W RTU 400 MG/200 ML RTUPB IV SCH ×2 (05:26→17:37)
[2018-01-17 06:19] LABS: HEMATOCRIT 30.5 % (37.9-51.0); HEMOGLOBIN 10.6 g/dL (13.5-17.0); MEAN CORPUSCULAR HEMOGLOBIN 33.8 pg (27.0-33.4); MEAN CORPUSCULAR HGB CONC 34.8 g/dL (32.0-36.0); MEAN CORPUSCULAR VOLUME 97 fl (80-97); RED BLOOD COUNT 3.13 10^6/uL (4.35-5.55); RED CELL DISTRIBUTION WIDTH 13.3 % (11.5-14.0); WHITE BLOOD COUNT 4.2 10^3/uL (4.0-10.5)
[2018-01-17 06:34] LABS: ANION GAP 8 (5-19); BLOOD UREA NITROGEN 36 mg/dL (7-20); CALCIUM 8.2 mg/dL (8.4-10.2); CARBON DIOXIDE 19 mmol/L (22-30); CHLORIDE 114 mmol/L (98-107); GLUCOSE 101 mg/dL (75-110); PHOSPHORUS 3.4 mg/dL (2.5-4.5); POTASSIUM 3.8 mmol/L (3.6-5.0); SODIUM 141.1 mmol/L (137-145)
[2018-01-17 06:38] LABS: PLATELET COUNT 83 10^3/uL (150-450)
[2018-01-17] MEDS ORDERED: PIPERACILLIN SODIUM/TAZOBACTAM 3.375 GM in NORMAL SALINE 100 ML IV ONE (07:00)
[2018-01-17] MEDS: PIPERACILLIN SODIUM/TAZOBACTAM 3.375 GM in NORMAL SALINE 100 ML IV SCH ×3 (10:32→20:38)
[2018-01-17] MEDS: LANSOPRAZOLE 30 MG TAB.RAP.DR PO SCH (10:32)
[2018-01-17] MEDS: APIXABAN 5 MG TABLET PO SCH ×2 (10:33→17:38)
[2018-01-17] MEDS: AMIODARONE HCL 200 MG TABLET PO SCH (10:33)
[2018-01-17] MEDS: MIDODRINE HCL 5 MG TABLET PO SCH ×2 (10:40→17:38)
[2018-01-17] MEDS: DIVALPROEX SODIUM 500 MG TAB.SR.24H PO SCH ×2 (10:40→17:48)
[2018-01-17] MEDS: GABAPENTIN 100 MG CAPSULE PO SCH ×2 (10:40→17:38)
[2018-01-17] MEDS: METOPROLOL SUCCINATE 25 MG TAB.SR.24H PO SCH ×2 (10:44→22:09)
[2018-01-17] MEDS: LEVOTHYROXINE SODIUM 0.05 MG TABLET PO SCH (10:47)
[2018-01-17] MEDS ORDERED: PIPERACILLIN SODIUM/TAZOBACTAM 3.375 GM in NORMAL SALINE 100 ML IV SCH (12:00)
[2018-01-18] MEDS: NORMAL SALINE 1000 ML 1,000 ML IV PRN (01:23)
[2018-01-18] MEDS: PIPERACILLIN SODIUM/TAZOBACTAM 3.375 GM in NORMAL SALINE 100 ML IV SCH ×3 (03:26→14:18)
[2018-01-18] MEDS: CIPROFLOXACIN 400 MG/D5W RTU 400 MG/200 ML RTUPB IV SCH (05:03)
[2018-01-18 06:27] LABS: ANION GAP 5 (5-19); BLOOD UREA NITROGEN 25 mg/dL (7-20); CALCIUM 7.8 mg/dL (8.4-10.2); CARBON DIOXIDE 20 mmol/L (22-30); CHLORIDE 115 mmol/L (98-107); GLUCOSE 86 mg/dL (75-110); POTASSIUM 3.8 mmol/L (3.6-5.0); SODIUM 139.5 mmol/L (137-145)
[2018-01-18] MEDS: APIXABAN 5 MG TABLET PO SCH ×2 (10:31→18:47)
[2018-01-18] MEDS: AMIODARONE HCL 200 MG TABLET PO SCH (10:31)
[2018-01-18] MEDS: MIDODRINE HCL 5 MG TABLET PO SCH ×2 (10:31→18:47)
[2018-01-18] MEDS: LANSOPRAZOLE 30 MG TAB.RAP.DR PO SCH (10:33)
[2018-01-18] MEDS: METOPROLOL SUCCINATE 25 MG TAB.SR.24H PO SCH (10:33)
[2018-01-18] MEDS: DIVALPROEX SODIUM 500 MG TAB.SR.24H PO SCH ×2 (10:38→18:51)
[2018-01-18] MEDS: LEVOTHYROXINE SODIUM 0.05 MG TABLET PO SCH (10:39)
[2018-01-18] MEDS: GABAPENTIN 100 MG CAPSULE PO SCH ×2 (10:42→18:46)
[2018-01-18 12:27] LABS: HEMATOCRIT 29.9 % (37.9-51.0); HEMOGLOBIN 10.3 g/dL (13.5-17.0); MEAN CORPUSCULAR HGB CONC 34.6 g/dL (32.0-36.0); MEAN CORPUSCULAR VOLUME 99 fl (80-97); RED BLOOD COUNT 3.04 10^6/uL (4.35-5.55); RED CELL DISTRIBUTION WIDTH 13.7 % (11.5-14.0); WHITE BLOOD COUNT 3.5 10^3/uL (4.0-10.5)
[2018-01-18 12:52] LABS: PLATELET COUNT 88 10^3/uL (150-450)
[2018-01-18 19:13] VITALS: BP 122/65
[2018-01-18] MEDS ORDERED: CIPROFLOXACIN HCL 500 MG TABLET PO SCH (22:00)
== END 2018-01-18 20:30 | disposition home or self-care (01) | DRG 872 ==
LOC: ER 16:34 → EH 01-16 01:19 → 3S 01-16 18:46
PROVIDERS: ADMIT Internal Medicine; ATTEND Internal Medicine
DX: A41.9 Sepsis, unspecified organism (principal); N17.9 Acute kidney failure, unspecified; I48.2 Chronic atrial fibrillation; I12.9 Hypertensive chronic kidney disease with stage 1 through stage 4 chronic kidney disease, or unspecified chronic kidney disease; N18.3 Chronic kidney disease, stage 3 (moderate); J44.9 Chronic obstructive pulmonary disease, unspecified; E78.00 Pure hypercholesterolemia, unspecified; E03.9 Hypothyroidism, unspecified; K21.9 Gastro-esophageal reflux disease without esophagitis; R19.7 Diarrhea, unspecified; Z95.0 Presence of cardiac pacemaker; Z86.73 Personal history of transient ischemic attack (TIA), and cerebral infarction without residual deficits; Z79.01 Long term (current) use of anticoagulants; Z79.51 Long term (current) use of inhaled steroids; Z79.899 Other long term (current) drug therapy
CPT/HCPCS: 36415; 71046; 74177; 80048; 80053; 80164; 81001; 83605; 83735; 84100; 85025; 85027; 87040; 87045; 87077; 87186; 87205; 87324; 96374; 99285; G8978-GP; G8979-GP; J0744; J1885; J1956; J2405; J2543; J3490

== ENCOUNTER 2018-05-12 12:18 | Observation (INO) | payer MEDICARE, MEDICAID ==
--- NOTE | 2018-05-12 12:23 | ER Document Report ---
ED Medical Screen (RME) - General Stated Complaint: POSSIBLE STROKE Time Seen by Provider: 05/12/18 12:21 Mode of Arrival: Wheelchair Information source: Relative TRAVEL OUTSIDE OF THE [place] IN LAST 30 DAYS: No - HPI Patient complains to provider of: weakness Onset: Just prior to arrival - relative states pt. with weakness and altered MS at [place] earlier this am. Also, c/o CP - Related Data Allergies/Adverse Reactions: No Known Allergies Allergy (Verified 05/12/18 12:21) Past Medical History - Social History Family history: Reviewed & Not Pertinent - Past Medical History Cardiac Medical History: Reports: Hx Atrial Fibrillation, Hx Hypercholesterolemia, Hx Hypertension Denies: Hx Congestive Heart Failure, Hx Coronary Artery Disease, Hx Heart Attack, Hx Peripheral Vascular Disease, Hx Pulmonary Embolism, Hx Heart Murmur Pulmonary Medical History: Reports: Hx COPD, Hx Pneumonia Denies: Hx Asthma, Hx Bronchitis, Hx Respiratory Failure, Hx Sleep Apnea, Hx Tuberculosis Neurological Medical History: Reports: Hx Cerebrovascular Accident, Hx Migraine. Denies: Hx Seizures Endocrine Medical History: Reports: Hx Hypothyroidism Renal/ Medical History: Denies: Hx Peritoneal Dialysis Malignancy Medical History: Denies Hx Lung Cancer GI Medical History: Reports: Hx Gastroesophageal Reflux Disease, Hx Ulcer. Denies: Hx Crohn's Disease, Hx Hiatal Hernia, Hx Irritable Bowel, Hx Liver Failure, Hx Pancreatitis Musculoskeltal Medical History: Reports Hx Arthritis, Denies Hx Fibromyalgia, Denies Hx Muscular Dystrophy Psychiatric Medical History: Denies: Hx Depression Traumatic Medical History: Reports: Hx Fractures Past Surgical History: Reports: Hx Abdominal Surgery - hernia, ulcer, Hx Appendectomy, Hx Cardiac Surgery - pacemaker, Hx Herniorrhaphy, Hx Pacemaker - meditronic, ventricular, Other - Partial gastric resection secondary to ulcer. Denies: Hx Cardiac Catheterization, Hx Colostomy, Hx Coronary Stent - Immunizations Hx Diphtheria, Pertussis, Tetanus Vaccination: No - unknown Doctor's Discharge - Discharge Referrals: DELFINO BLACKMON PA-C [Primary Care Provider] - Follow up as needed
--- NOTE | 2018-05-12 12:41 | RADIOLOGY REPORT (SQ) ---
EXAM DESCRIPTION: CT HEAD WITHOUT COMPLETED DATE/TIME: 05/12/2018 12:29 pm REASON FOR STUDY: confusion COMPARISON: 07/31/2017 TECHNIQUE: Axial images acquired through the brain without intravenous contrast. Images reviewed wi th bone, brain and subdural windows. Additional sagittal and coronal reconstructions were generated. Images stored on PACS. All CT scanners at this facility use dose modulation, iterative reconstruction, and/or weight based d osing when appropriate to reduce radiation dose to as low as reasonably achievable (ALARA). [facility]: Dose Right [facility]: CareDose [facility]: Dose Right [facility]: Teradose 4D [facility]: [employer] RADIATION DOSE: CT Rad equipment meets quality standard of care and radiation dose reduction techniq ues were employed. CTDIvol: 48.7 mGy. DLP: 1004 mGy-cm. mGy. LIMITATIONS: None. FINDINGS: VENTRICLES: Normal size and contour. CEREBRUM: No masses. No hemorrhage. No midline shift. No evidence for acute infarction. Normal gra y/white matter differentiation. No areas of low density in the white matter. CEREBELLUM: No masses. No hemorrhage. No alteration of density. No evidence for acute infarction. EXTRAAXIAL SPACES: No fluid collections. No masses. ORBITS AND GLOBE: No intra- or extraconal masses. Normal contour of globe without masses. CALVARIUM: No fracture. PARANASAL SINUSES: No fluid or mucosal thickening. SOFT TISSUES: No mass or hematoma. OTHER: No other significant finding. IMPRESSION: NORMAL BRAIN CT WITHOUT CONTRAST. EVIDENCE OF ACUTE STROKE: NO. COMMENT: Pertinent positive or negative findings of the imaging study reported as a CRITICAL EXAM t viv JOHNSON MD at12:34 on 05/12/2018. Category of Critical Exam: Code stroke Quality ID # [id number]: Final reports with documentation of one or more dose reduction techniques (e.g., Au tomated exposure control, adjustment of the mA and/or kV according to patient size, use of iterative reconstruction technique) TECHNICAL DOCUMENTATION: JOB ID: [id number] [employer]- All Rights Reserved Reading location - IP/workstation name: [email or web address]
--- NOTE | 2018-05-12 13:01 | RADIOLOGY REPORT (SQ) ---
EXAM DESCRIPTION: CHEST SINGLE VIEW COMPLETED DATE/TIME: 05/12/2018 12:53 pm REASON FOR STUDY: confusion COMPARISON: 01/15/2018 EXAM PARAMETERS: NUMBER OF VIEWS: One view. TECHNIQUE: Single frontal radiographic view of the chest acquired. RADIATION DOSE: NA LIMITATIONS: None. FINDINGS: LUNGS AND PLEURA: No opacities, masses or pneumothorax. No pleural effusion. MEDIASTINUM AND HILAR STRUCTURES: No masses. Contour normal. HEART AND VASCULAR STRUCTURES: Heart normal in size. Normal vasculature. BONES: No acute findings. HARDWARE: Cardiac unchanged. OTHER: No other significant finding. IMPRESSION: NO ACUTE RADIOGRAPHIC FINDING IN THE CHEST. TECHNICAL DOCUMENTATION: JOB ID: [id number] [employer]- All Rights Reserved Reading location - IP/workstation name: [email or web address]
[2018-05-12] MEDS ORDERED: FENTANYL CITRATE INJ/PF 100 MCG/2 ML AMPUL IV ONE (13:16)
[2018-05-12] MEDS ORDERED: LORAZEPAM INJ 2 MG/1 ML VIAL IV ONE (13:16)
[2018-05-12 13:20] LABS: ABSOLUTE EOSINOPHILS # (AUTO) 0.2 10^3/uL (0.0-0.6); ABSOLUTE LYMPHOCYTES (AUTO) 1.5 10^3/uL (0.5-4.7); ABSOLUTE MONOCYTES (AUTO) 0.7 10^3/uL (0.1-1.4); ABSOLUTE NEUT (AUTO) 9.9 10^3/uL (1.7-8.2); BASOPHILS % (AUTO) 0.4 % (0-2); EOSINOPHILS % (AUTO) 1.2 % (0-6); HEMATOCRIT 39.3 % (37.9-51.0); HEMOGLOBIN 13.4 g/dL (13.5-17.0); MEAN CORPUSCULAR HEMOGLOBIN 32.3 pg (27.0-33.4); MEAN CORPUSCULAR VOLUME 95 fl (80-97); MONOCYTES % (AUTO) 5.9 % (3-13); PLATELET COUNT 247 10^3/uL (150-450); RED BLOOD COUNT 4.14 10^6/uL (4.35-5.55); RED CELL DISTRIBUTION WIDTH 13.4 % (11.5-14.0); SEGMENTED NEUTROPHILS % (AUTO) 80.5 % (42-78); TOTAL CELLS COUNTED % (AUTO) 100 %; WHITE BLOOD COUNT 12.2 10^3/uL (4.0-10.5)
[2018-05-12 13:37] LABS: ALANINE AMINOTRANSFERASE 22 U/L (21-72); ALBUMIN 4.6 g/dL (3.5-5.0); ALKALINE PHOSPHATASE 82 U/L (38-126); ANION GAP 11 (5-19); ASPARTATE AMINO TRANSFERASE 28 U/L (17-59); BILIRUBIN,DIRECT 0.3 mg/dL (0.0-0.4); BILIRUBIN,TOTAL 0.4 mg/dL (0.2-1.3); BLOOD UREA NITROGEN 23 mg/dL (7-20); CALCIUM 9.5 mg/dL (8.4-10.2); CARBON DIOXIDE 24 mmol/L (22-30); CHLORIDE 105 mmol/L (98-107); CREATINE KINASE 36 U/L (55-170); GLUCOSE 91 mg/dL (75-110); POTASSIUM 4.4 mmol/L (3.6-5.0); SODIUM 139.8 mmol/L (137-145); TOTAL PROTEIN 7.7 g/dL (6.3-8.2)
[2018-05-12 13:53] LABS: CREATINE KINASE MB 0.76 ng/mL (<4.55)
[2018-05-12 13:54] LABS: TROPONIN I < 0.012 ng/mL
--- NOTE | 2018-05-12 14:39 | ER Document Report ---
ED General - General Mode of Arrival: Wheelchair Information source: Patient, Relative TRAVEL OUTSIDE OF THE [place] IN LAST 30 DAYS: No <MIN JONES - Last Filed: 05/12/18 15:12> <AZEEM MORALES - Last Filed: 05/12/18 17:11> - General Chief Complaint: S/S of Possible Stroke Stated Complaint: POSSIBLE STROKE Time Seen by Provider: 05/12/18 12:21 Notes: 72-year-old male who presents to the emergency department today with complaints of generalized weakness that began when he was at [employer] this morning. Family member at bedside states the patient has had a cold for several weeks and went to see his PCP about this 2 days ago and was started on Ceftin. Patient describes the symptoms as "coughing and sneezing". Patient states today at [employer] he developed left sided chest pain that does not change with breathing. Patient denies fevers. (MIN JONES) - Related Data Allergies/Adverse Reactions: No Known Allergies Allergy (Verified 05/12/18 12:21) Past Medical History - General Information source: Patient, Relative - Social History Smoking Status: Never Smoker Cigarette use (# per day): No Frequency of alcohol use: None Drug Abuse: None Family History: Reviewed & Not Pertinent, CAD - Father - Past Medical History Cardiac Medical History: Reports: Hx Atrial Fibrillation, Hx Hypercholesterolemia, Hx Hypertension Pulmonary Medical History: Reports: Hx COPD, Hx Pneumonia Neurological Medical History: Reports: Hx Cerebrovascular Accident, Hx Migraine Endocrine Medical History: Reports: Hx Hypothyroidism GI Medical History: Reports: Hx Gastroesophageal Reflux Disease, Hx Ulcer Musculoskeletal Medical History: Reports Hx Arthritis Traumatic Medical History: Reports: Hx Fractures Past Surgical History: Reports: Hx Abdominal Surgery - hernia, ulcer, Hx Appendectomy, Hx Cardiac Surgery - pacemaker, Hx Herniorrhaphy, Hx Pacemaker - meditronic, ventricular, Other - Partial gastric resection secondary to ulcer - Immunizations Hx Diphtheria, Pertussis, Tetanus Vaccination: No - unknown Hx Pneumococcal Vaccination: 02/28/10 <MIN JONES - Last Filed: 05/12/18 15:12> Neurological Medical History: Reports: Other - Parkinson tremor <AZEEM MORALES - Last Filed: 05/12/18 17:11> Physical Exam <MIN JONES - Last Filed: 05/12/18 15:12> - Vital signs Vitals: Pulse Resp BP Pulse Ox 72 20 142/78 H 100 05/12/18 12:23 05/12/18 12:23 05/12/18 12:23 05/12/18 12:23 - Notes Notes: Physical Exam: General: Alert, appears quite anxious. HEENT: Normocephalic. Atraumatic. PERRL. Extraocular movements intact. Oropharynx clear. Lower lip quiver. Neck: Supple. Non-tender. Respiratory: No respiratory distress. Clear and equal breath sounds bilaterally. Cardiovascular: Regular rate and rhythm. Clutches left chest. Abdominal: Normal Inspection. Non-tender. No distension. Normal Bowel Sounds. Back: Non-tender. No deformity or step off. Extremities: Moves all four extremities. Upper extremities: Left hand tremor. Lower extremities: Normal inspection. No edema. Normal ROM. Neurological: Normal cognition. AAOx4. Normal speech. Psychological: Normal affect. Normal Mood. Skin: Warm. Dry. Normal color. (MIN JONES) Course - Laboratory Result Diagrams: 05/12/18 13:10 05/12/18 13:10 <MIN JONES - Last Filed: 05/12/18 15:12> - Laboratory Result Diagrams: 05/12/18 13:10 05/12/18 13:10 - Diagnostic Test Radiology reviewed: Image reviewed, Reports reviewed - Chest x-ray does not show acute process. CT scan of the brain does not show an acute process. - EKG Interpretation by Ia EKG shows normal: [place], Intervals, QRS Complexes, ST-T Waves Rate: Normal - 67 Rhythm: Other - Atrial paced rhythm Voltage: Consistant with LVH P Waves: LAE - Consults Dr. Machuca Time consulted: 17:05 Consulted provider: will come to ER <AZEEM MORALES - Last Filed: 05/12/18 17:11> - Re-evaluation Re-evalutation: 05/12/18 14:45 At this time the patient seems to be much more relaxed, and he actually seemed to have been taking a nap. When he is awakened he begins having the tremor to his lower jaw and lip, but does not have the tremor to the right upper extremity that he had previously. (AZEEM MORALES) - Vital Signs Vital signs: Temp Pulse Resp BP Pulse Ox 98.7 F 66 18 121/74 99 05/12/18 15:43 05/12/18 12:25 05/12/18 15:01 05/12/18 14:00 05/12/18 15:01 - Laboratory Laboratory results interpreted by me: 05/12/18 05/12/18 05/12/18 13:10 13:10 16:30 WBC 12.2 H RBC 4.14 L Hgb 13.4 L Seg Neutrophils % 80.5 H Lymphocytes % 12.0 L Absolute Neutrophils 9.9 H BUN 23 H Creatinine 1.36 H Est GFR (Non-Af Amer) 51 L Creatine Kinase 36 L Urine Ketones TRACE H Valproic Acid < 10.0 L Discharge <MIN JONES - Last Filed: 05/12/18 15:12> - Discharge Admitting Provider: Hospitalist Unit Admitted: Telemetry <AZEEM MORALES - Last Filed: 05/12/18 17:11> - Discharge Clinical Impression: Weakness, Left sided chest pain Leukocytosis Qualifiers: Leukocytosis type: unspecified Qualified Code(s): D72.829 - Elevated white blood cell count, unspecified Condition: Stable Disposition: ADMITTED OBSERVATION Referrals: DELFINO BLACKMON PA-C [Primary Care Provider] - Follow up as needed Scribe Attestation: 05/12/18 16:44 I personally performed the services described in the documentation, reviewed and edited the documentation which was dictated to the scribe in my presence, and it accurately records my words and actions. (AZEEM MORALES) Scribe Documentation - Scribe Written by Femi:: Femi Islas, 05/12/2018 1439 acting as scribe for :: Stella <MIN JONES - Last Filed: 05/12/18 15:12>
--- NOTE | 2018-05-12 16:40 | EKG REPORT ---
SEVERITY:- ABNORMAL ECG - ATRIAL-PACED COMPLEXES PROBABLE LEFT ATRIAL ABNORMALITY LEFT VENTRICULAR HYPERTROPHY : Confirmed by: Shubham Lancaster MD 12-May-2018 16:39:56
[2018-05-12 16:45] LABS: APPEARANCE,URINE CLEAR; BILIRUBIN,URINE NEGATIVE (NEGATIVE); COLOR,URINE YELLOW; GLUCOSE, URINE NEGATIVE (NEGATIVE); KETONES,URINE TRACE mg/dL (NEGATIVE); LEUKOCYTE ESTERASE,URINE NEGATIVE (NEGATIVE); NITRITE,URINE NEGATIVE (NEGATIVE); PROTEIN,URINE NEGATIVE (NEGATIVE); URINE SPECIFIC GRAVITY 1.006; UROBILINOGEN,URINE NEGATIVE mg/dL (<2.0)
[2018-05-12] MEDS ORDERED: NORMAL SALINE 1000 ML 1,000 ML IV PRN (17:42)
[2018-05-12] MEDS ORDERED: ONDANSETRON HCL INJ/PF 4 MG/2 ML SDV IV PRN (17:42)
[2018-05-12] MEDS ORDERED: OXYCODONE-ACETAMINOPHEN 5-325 MG TABLET PO PRN (17:42)
[2018-05-12] MEDS ORDERED: ALBUTEROL SULFATE HFA (90 MCG/PUFF) 8 GM MDI (1 MDI/ER DISP) IH PRN ×2 (17:47→18:30)
[2018-05-12] MEDS ORDERED: APIXABAN 5 MG TABLET PO SCH (18:00)
--- NOTE | 2018-05-12 18:08 | PDOC H&P ---
History of Present Illness Admission Date/PCP: DELFINO BLACKMON PA-C Patient complains of: Weakness and altered mental status / chest pain History of Present Illness: LIONEL ACEVEDO is a 72 year old male Past Medical History Cardiac Medical History: Reports: Atrial Fibrillation, Hyperlipidema, Hypertension Denies: Congestive Heart Failure, Coronary Artery Disease, Myocardial Infarction, Peripheral Vascular Disease, Pulmonary Embolism, Heart Murmur Pulmonary Medical History: Reports: Chronic Obstructive Pulmonary Disease (COPD), Pneumonia Denies: Asthma, Bronchitis, Respiratory Failure, Sleep Apnea, Tuberculosis Neurological Medical History: Reports: Migraine, Other - Parkinson tremor Denies: Seizures Endocrine Medical History: Reports: Hypothyroidism Renal/ Medical History: Reports: Chronic Kidney Disease Malignancy Medical History: Denies: Lung Cancer GI Medical History: Reports: Gastroesophageal Reflux Disease Denies: Crohn's Disease, Hiatal Hernia Musculoskeltal Medical History: Reports: Arthritis Denies: Fibromyalgia Psychiatric Medical History: Denies: Depression Past Surgical History Past Surgical History: Reports: Appendectomy, Herniorrhaphy, Pacemaker - meditronic, ventricular, Other - Partial gastric resection secondary to ulcer Denies: Cardiac Catheterization, Colostomy, Coronary Stent Social History Smoking Status: Former Smoker Frequency of Alcohol Use: None Hx Recreational Drug Use: No Drugs: None Hx Prescription Drug Abuse: No - Advance Directive Resuscitation Status: Do Not Resuscitate Family History Family History: Reviewed & Not Pertinent, CAD - Father Parental Family History Reviewed: Yes Children Family History Reviewed: Yes Sibling(s) Family History Reviewed.: Yes Medication/Allergy Home Medications: Amiodarone HCl [Cordarone 200 mg Tablet] 200 mg PO DAILY 07/31/16 Apixaban [Eliquis 5 mg Tablet] 5 mg PO BID 07/31/16 Levothyroxine Sodium [Synthroid] 75 mcg PO DAILY 07/31/16 Pantoprazole Sodium [Protonix] 40 mg PO DAILY 07/31/16 Albuterol Sulfate [Ventolin Hfa] 2 puff IN Q4HP PRN 01/06/17 Divalproex Sodium [Divalproex Sodium ER] 500 mg PO BID 08/12/17 Gabapentin 100 mg PO BID 08/12/17 Acetaminophen [Tylenol Extra Strength 500 mg Tablet] 1,000 tab PO Q6HP PRN 01/16/18 Glycopyrrolate/Formoterol Fum [Bevespi Aerosphere Inhaler] 10.7 gm IH DAILY 01/16/18 Midodrine HCl [Proamatine 5 mg Tablet] 5 mg PO BID 01/16/18 Simvastatin [Zocor 20 mg Tablet] 20 mg PO QPM 01/16/18 Ciprofloxacin HCl [Cipro 500 mg Tablet] 500 mg PO Q12 5 Days #10 tablet 01/18/18 Metoprolol Succinate [Toprol Xl 25 mg Tab.sr] 12.5 mg PO Q12 #60 tab.sr.24h 01/18/18 Allergies/Adverse Reactions: No Known Allergies Allergy (Verified 05/12/18 12:21) Review of Systems Constitutional: ABSENT: fever(s) Eyes: ABSENT: visual disturbances Ears: ABSENT: hearing changes Cardiovascular: PRESENT: chest pain Respiratory: ABSENT: dyspnea, hemoptysis Gastrointestinal: ABSENT: coffee ground emesis, diarrhea, dysphagia, heartburn, hematemesis, hematochezia Musculoskeletal: ABSENT: deformity, joint swelling, muscle weakness Neurological: PRESENT: confusion, dizziness, numbness, tremor(s), weakness. ABSENT: focal weakness, frequent falls, lack of coordination, tingling, vertigo Psychiatric: ABSENT: anxiety, depression, homidical ideation, suicidal ideation Physical Exam Vital Signs: Temp Pulse Resp BP Pulse Ox 98.7 F 62 13 108/70 99 05/12/18 15:43 05/12/18 15:23 05/12/18 17:00 05/12/18 17:00 05/12/18 17:00 General appearance: PRESENT: no acute distress, cooperative Head exam: PRESENT: atraumatic Eye exam: PRESENT: PERRLA Mouth exam: PRESENT: moist Neck exam: ABSENT: carotid bruit, JVD, lymphadenopathy, thyromegaly Respiratory exam: PRESENT: decreased breath sounds Cardiovascular exam: PRESENT: systolic murmur, other - Pacemaker left side of the chest GI/Abdominal exam: PRESENT: normal bowel sounds, soft. ABSENT: tenderness Extremities exam: PRESENT: full ROM. ABSENT: calf tenderness, clubbing, pedal edema Neurological exam: PRESENT: alert, awake, oriented to person, oriented to place, oriented to time, oriented to situation, CN II-XII grossly intact. ABSENT: motor sensory deficit Psychiatric exam: PRESENT: appropriate affect, normal mood. ABSENT: homicidal ideation, suicidal ideation Results Laboratory Results: 05/12/18 13:10 05/12/18 13:10 05/12/18 05/12/18 05/12/18 13:10 13:10 16:30 WBC 12.2 H RBC 4.14 L Hgb 13.4 L Hct 39.3 MCV 95 MCH 32.3 MCHC 34.0 RDW 13.4 Plt Count 247 Seg Neutrophils % 80.5 H Lymphocytes % 12.0 L Monocytes % 5.9 Eosinophils % 1.2 Basophils % 0.4 Absolute Neutrophils 9.9 H Absolute Lymphocytes 1.5 Absolute Monocytes 0.7 Absolute Eosinophils 0.2 Absolute Basophils 0.0 Sodium 139.8 Potassium 4.4 Chloride 105 Carbon Dioxide 24 Anion Gap 11 BUN 23 H Creatinine 1.36 H Est GFR ( Amer) > 60 Est GFR (Non-Af Amer) 51 L Glucose 91 Calcium 9.5 Total Bilirubin 0.4 AST 28 ALT 22 Alkaline Phosphatase 82 Total Protein 7.7 Albumin 4.6 Urine Color YELLOW Urine Appearance CLEAR Urine pH 6.0 Ur Specific [place] 1.006 Urine Protein NEGATIVE Urine Glucose (UA) NEGATIVE Urine Ketones TRACE H Urine Blood NEGATIVE Urine Nitrite NEGATIVE Ur Leukocyte Esterase NEGATIVE Urine WBC (Auto) 1 Urine RBC (Auto) 2 05/12/18 05/12/18 05/12/18 13:10 13:10 15:36 Creatine Kinase 36 L CK-MB (CK-2) 0.76 Troponin I < 0.012 < 0.012 Impressions: Chest X-Ray 05/12/18 12:21 IMPRESSION: NO ACUTE RADIOGRAPHIC FINDING IN THE CHEST. Head CT 05/12/18 12:21 IMPRESSION: NORMAL BRAIN CT WITHOUT CONTRAST. EVIDENCE OF ACUTE STROKE: NO. Assessment & Plan - Diagnosis (1) Left sided chest pain Is this a current diagnosis for this admission?: Yes Plan: 05/12/2018 patient is given the history of left-sided chest pain that started when he went to [place] on and off chest pain pain scale is 3/10 time of presentation localized pain associated with left arm left lower leg numbness denies any shortness of breath denies any headaches at that time denies any nausea denies any sweating. At the same time she felt weak and confused brought to the emergency room for further evaluation. In the emergency room WBC was little bit elevated and he was holding the left side of the chest in pain and the ER physician gave him some Ativan and he was more comfortable to troponins are negative EKG was same compared to the previous EKGs medical consult was called for admission. Plan is to put him in in telemetry even though he is DNR/DNI cardiac enzymes x3 along with the EKG. He was already on Eliquis plan is to continue Eliquis he is already on simvastatin plan is to continue simvastatin started him on aspirin and lipid panel was requested for tomorrow. As I mentioned about 2 troponins are negative. (2) Leukocytosis Qualifiers: Leukocytosis type: unspecified Qualified Code(s): D72.829 - Elevated white blood cell count, unspecified Is this a current diagnosis for this admission?: Yes Plan: WBC is 12,200 and he has a recent history of Salmonella infection in the stool on the blood that was in December 2017 I started him on Flagyl 500 mg IV daily and Rocephin 1 g IV daily I am going to send for stool culture and blood cultures urine cultures are pending. (3) Weakness Is this a current diagnosis for this admission?: Yes Plan: 05/12/2018 weakness along with altered mental status is resolved CT head was negative. Unable to do the MRI because of the pacemaker presence. (4) Chronic atrial fibrillation Is this a current diagnosis for this admission?: Yes Plan: 05/12/2018 patient has history of chronic atrial fibrillation status post pacemaker placement is on Eliquis 5 mg p.o. twice daily plan to continue the home medication during this hospital stay. (5) History of stroke Is this a current diagnosis for this admission?: Yes Plan: 05/12/2017 patient has history of multiple strokes head CT was negative today. Patient is alert and oriented communicating very well. Unable to do the MRI of the head because of the pacemaker. (6) Hypothyroid Qualifiers: Hypothyroidism type: acquired Qualified Code(s): E03.9 - Hypothyroidism, unspecified Is this a current diagnosis for this admission?: Yes Plan: 05/12/2018 patient has history of hypothyroidism on levothyroxine at home we are going to resume the medication during the hospital stay. - Time Time Spent: 50 to 70 Minutes Critical Time spent with patient: 15-24 minutes Medications reviewed and adjusted accordingly: Yes Anticipated discharge: Home
[2018-05-12] MEDS ORDERED: METRONIDAZOLE RTU 500 MG/NS 100 ML IV ONE (18:15)
[2018-05-12 18:48] LABS: CREATINE KINASE MB 0.65 ng/mL (<4.55)
[2018-05-12 18:50] LABS: TROPONIN I < 0.012 ng/mL
[2018-05-12] MEDS: DIVALPROEX SODIUM 500 MG TAB.SR.24H PO SCH (18:54)
[2018-05-12] MEDS: DOCUSATE SODIUM 100 MG/10 ML UDC PO SCH (18:54)
[2018-05-12] MEDS: GABAPENTIN 100 MG CAPSULE PO SCH (18:56)
[2018-05-12] MEDS ORDERED: MIDODRINE HCL 5 MG TABLET PO ONE ×2 (19:00→22:00)
[2018-05-12] MEDS: METOPROLOL SUCCINATE 25 MG TAB.SR.24H PO SCH (21:45)
[2018-05-12] MEDS: FAMOTIDINE 20 MG TABLET PO SCH (21:45)
[2018-05-12] MEDS ORDERED: SIMVASTATIN 10 MG TABLET PO SCH (22:00)
[2018-05-12] MEDS ORDERED: CEFTRIAXONE 1 GM/D5W RTU 1 GM/50 ML RTUPB IV SCH (22:00)
[2018-05-13 01:07] LABS: CREATINE KINASE MB 0.53 ng/mL (<4.55)
[2018-05-13 01:41] LABS: TROPONIN I < 0.012 ng/mL
[2018-05-13] MEDS ORDERED: LEVOTHYROXINE SODIUM 0.05 MG TABLET PO SCH (06:00)
[2018-05-13 07:07] LABS: ABSOLUTE BASOPHILS # (AUTO) 0.1 10^3/uL (0.0-0.2); ABSOLUTE EOSINOPHILS # (AUTO) 0.5 10^3/uL (0.0-0.6); ABSOLUTE LYMPHOCYTES (AUTO) 1.8 10^3/uL (0.5-4.7); ABSOLUTE MONOCYTES (AUTO) 0.7 10^3/uL (0.1-1.4); ABSOLUTE NEUT (AUTO) 4.4 10^3/uL (1.7-8.2); BASOPHILS % (AUTO) 1.1 % (0-2); EOSINOPHILS % (AUTO) 6.2 % (0-6); HEMATOCRIT 39.7 % (37.9-51.0); HEMOGLOBIN 13.7 g/dL (13.5-17.0); LYMPHOCYTES % (AUTO) 24.3 % (13-45); MEAN CORPUSCULAR HEMOGLOBIN 32.5 pg (27.0-33.4); MEAN CORPUSCULAR HGB CONC 34.5 g/dL (32.0-36.0); MEAN CORPUSCULAR VOLUME 94 fl (80-97); MONOCYTES % (AUTO) 9.2 % (3-13); PLATELET COUNT 236 10^3/uL (150-450); RED BLOOD COUNT 4.21 10^6/uL (4.35-5.55); RED CELL DISTRIBUTION WIDTH 13.6 % (11.5-14.0); SEGMENTED NEUTROPHILS % (AUTO) 59.2 % (42-78); TOTAL CELLS COUNTED % (AUTO) 100 %; WHITE BLOOD COUNT 7.5 10^3/uL (4.0-10.5)
[2018-05-13 07:10] LABS: INTERNATIONAL RATION (INR) 1.01; PROTHROMBIN TIME 13.8 SEC (11.4-15.4)
[2018-05-13 07:31] LABS: ALANINE AMINOTRANSFERASE 20 U/L (21-72); ALBUMIN 4.1 g/dL (3.5-5.0); ALKALINE PHOSPHATASE 70 U/L (38-126); ANION GAP 8 (5-19); ASPARTATE AMINO TRANSFERASE 29 U/L (17-59); BILIRUBIN,DIRECT 0.3 mg/dL (0.0-0.4); BILIRUBIN,TOTAL 0.4 mg/dL (0.2-1.3); BLOOD UREA NITROGEN 24 mg/dL (7-20); CARBON DIOXIDE 26 mmol/L (22-30); CHLORIDE 109 mmol/L (98-107); CHOLESTEROL 116.17 mg/dL (0-200); CREATINE KINASE 31 U/L (55-170); GLUCOSE 76 mg/dL (75-110); POTASSIUM 4.6 mmol/L (3.6-5.0); SODIUM 142.5 mmol/L (137-145); TOTAL PROTEIN 7.2 g/dL (6.3-8.2); TRIGLYCERIDES 136 mg/dL (<150)
[2018-05-13 07:35] LABS: CREATINE KINASE MB 0.54 ng/mL (<4.55)
[2018-05-13 07:36] LABS: TROPONIN I < 0.012 ng/mL
[2018-05-13 07:42] LABS: DIRECT LDL 56 mg/dL (<100)
--- NOTE | 2018-05-13 08:44 | Physician Advisory Note ---
Physician Advisor ProgressNote .: Pursuant to the plan for Ye Barrera, I have reviewed the medical record for this patient. Physician Advisor Statement: Please consider documenting, if you agree: 1. "Acute CP, suspect probably due to " 2. "Leukocytosis, suspect most likely due to " 3. "weakness & AMS, suspect due to ____" 4. Medical necessity/status: appropriately Obs initially given reasonable chance of safe d/c after 1MN based on info available at time of status decision. - Medicare pt. - If clinically not felt safe for d/c today, please document ongoing issues/concerns, & then may be appropriate to change to Inpt status. Thanks! CK
[2018-05-13] MEDS: METOPROLOL SUCCINATE 25 MG TAB.SR.24H PO SCH (09:43)
[2018-05-13] MEDS: GABAPENTIN 100 MG CAPSULE PO SCH (09:43)
[2018-05-13] MEDS: FAMOTIDINE 20 MG TABLET PO SCH (09:43)
[2018-05-13] MEDS: DIVALPROEX SODIUM 500 MG TAB.SR.24H PO SCH (09:44)
[2018-05-13] MEDS ORDERED: ENOXAPARIN SODIUM INJ 30 MG/0.3 ML DISP.SYRIN SUBCUT SCH (10:00)
[2018-05-13] MEDS ORDERED: ASPIRIN 81 MG TABLET, CHEWABLE PO SCH (10:00)
[2018-05-13] MEDS ORDERED: FORMOTEROL FUM IH SCH (10:00)
[2018-05-13] MEDS ORDERED: [UNRECOGNIZED DRUG - OTHER] IH SCH (10:00)
[2018-05-13] MEDS ORDERED: CEFTRIAXONE INJ 500 MG VIAL IV SCH (10:00)
[2018-05-13] MEDS ORDERED: GLYCOPYRROLATE IH SCH (10:00)
[2018-05-13] MEDS ORDERED: AMIODARONE HCL 200 MG TABLET PO SCH (10:00)
[2018-05-13] MEDS: MIDODRINE HCL 5 MG TABLET PO SCH ×2 (10:05→11:00)
[2018-05-13] MEDS: DOCUSATE SODIUM 100 MG/10 ML UDC PO SCH (10:05)
[2018-05-13 14:05] VITALS: BP 99/48
--- NOTE | 2018-05-13 14:53 | PDOC DISCHARGE SUMMARY ---
General - Admit/Disc Date/PCP Admission Date/Primary Care Provider: 05/12/18 17:48 DELFINO BLACKMON PA-C Discharge Date: 05/13/18 - Discharge Diagnosis (1) Left sided chest pain Is this a current diagnosis for this admission?: Yes Summary: 05/12/2018 patient is given the history of left-sided chest pain that started when he went to the [facility] on and off chest pain pain scale is 3/10 time of presentation localized pain associated with left arm left lower leg numbness denies any shortness of breath denies any headaches at that time denies any nausea denies any sweating. At the same time she felt weak and confused brought to the emergency room for further evaluation. In the emergency room WBC was little bit elevated and he was holding the left side of the chest in pain and the ER physician gave him some Ativan and he was more comfortable to troponins are negative EKG was same compared to the previous EKGs medical consult was called for admission. Plan is to put him in in telemetry even though he is DNR/DNI cardiac enzymes x3 along with the EKG. He was already on Eliquis plan is to continue Eliquis he is already on simvastatin plan is to continue simvastatin started him on aspirin and lipid panel was requested for tomorrow. As I mentioned about 2 troponins are negative. 05/13/2018 patient came in with left-sided chest pain and is reproducible pain on gentle palpation complaining of pain yesterday chest pain is most likely muscular to her musculoskeletal cardiac enzymes x3 are negative EKG no acute changes. Patient was advised to continue the present management and follow-up with Dr. Briggs in [place]. 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 (2) Leukocytosis Is this a current diagnosis for this admission?: Yes Summary: WBC is 12,200 and he has a recent history of Salmonella infection in the stool on the blood that was in December 2017 I started him on Flagyl 500 mg IV daily and Rocephin 1 g IV daily I am going to send for stool culture and blood cultures urine cultures are pending. 05/13/2018-admission WBC is 12,200 and came down to 7500. Leukocytosis is secondary to unknown etiology. The cultures are negative so far. (3) Weakness Is this a current diagnosis for this admission?: Yes Summary: 05/12/2018 weakness along with altered mental status is resolved CT head was negative. Unable to do the MRI because of the pacemaker presence. 05/13/2018-ER physician noticed patient was weak and is not altered mental status when he came in during the examination yesterday and today patient is alert and oriented communicating well no complaints of any weakness at all. Weakness and altered mental status is of unknown etiology. Transient weakness may be s econdary to previous strokes. CT scan here does not show any acute stroke. (4) Chronic atrial fibrillation Is this a current diagnosis for this admission?: Yes Summary: 05/12/2018 patient has history of chronic atrial fibrillation status post pacemaker placement is on Eliquis 5 mg p.o. twice daily plan to continue the home medication during this hospital stay. 05/13/2018-patient has history of chronic atrial fibrillation on Eliquis 5 mg p.o. twice a day on the medication was continued during the hospital stay. Patient was advised to continue medication at home also. (5) History of stroke Is this a current diagnosis for this admission?: Yes Summary: 05/12/2017 patient has history of multiple strokes head CT was negative today. Patient is alert and oriented communicating very well. Unable to do the MRI of the head because of the pacemaker. 05/13/2018 CT head was negative during the hospital stay patient has previous history of multiple strokes. (6) Hypothyroid Is this a current diagnosis for this admission?: Yes Summary: 05/12/2018 patient has history of hypothyroidism on levothyroxine at home we are going to resume the medication during the hospital stay. 05/13/2018-patient has history of hypothyroidism he was started on levothyroxine. Patient was advised to continue the medication at home. - Additional Information Resuscitation Status: Do Not Resuscitate Discharge Diet: Cardiac Discharge Activity: Activity As Tolerated Home Medications: Acetaminophen [Tylenol Extra Strength 500 mg Tablet] 1,000 mg PO Q4HP PRN 05/13/18 Albuterol Sulfate [Ventolin Hfa 8 gm Mdi (1 Mdi/ER Disp)] 2 puff IH RTQ4HP PRN inhaler 05/13/18 Amiodarone HCl [Cordarone 200 mg Tablet] 200 mg PO DAILY 05/13/18 Amiodarone HCl [Cordarone 200 mg Tablet] 200 mg PO DAILY tablet 05/13/18 Apixaban [Eliquis 5 mg Tablet] 5 mg PO BID tablet 05/13/18 Apixaban [Eliquis 5 mg Tablet] 5 mg PO Q12 05/13/18 Aspirin [Aspirin 81 mg Chewable Tablet] 81 mg PO DAILY tab.chew 05/13/18 Carbidopa/Levodopa [Sinemet 25-100 mg Tablet] 1 tab PO TID 05/13/18 Divalproex Sodium [Depakote ER 500 mg Tab.sr] 500 mg PO BID tab.sr.24h 05/13/18 Famotidine [Pepcid 20 mg Tablet] 20 mg PO Q12 tablet 05/13/18 Gabapentin [Neurontin 100 mg Capsule] 300 mg PO QHS 05/13/18 Glycopyrrolate/Formoterol Fum [Bevespi Aerosphere Inhaler] 2 puff IH 12 05/13/18 Levothyroxine Sodium 75 mcg PO Q6AM 05/13/18 Levothyroxine Sodium [Synthroid 0.05 mg Tablet] 0.075 mg PO Q6AM tablet 05/13/18 Metoprolol Succinate [Toprol Xl 25 mg Tab.sr] 12.5 mg PO DAILY 05/13/18 Midodrine HCl [Proamatine 5 mg Tablet] 5 mg PO BID 05/13/18 Pantoprazole Sodium [Protonix] 40 mg PO DAILY 05/13/18 Simvastatin [Zocor 10 mg Tablet] 20 mg PO QHS tablet 05/13/18 Simvastatin [Zocor 20 mg Tablet] 20 mg PO QPM 05/13/18 History of Present Illness History of Present Illness: LIONEL ACEVEDO is a 72 year old male Physical Exam Vital Signs: Temp Pulse Resp BP Pulse Ox 98.1 F 63 17 99/48 L 94 05/13/18 11:00 05/13/18 11:00 05/13/18 14:01 05/13/18 14:00 05/13/18 14:01 Intake & Output 05/12/18 05/13/18 05/14/18 06:59 06:59 06:59 Intake Total 50 Output Total 250 Balance 50 -250 Weight 68 kg General appearance: PRESENT: no acute distress Head exam: PRESENT: atraumatic Eye exam: PRESENT: PERRLA Mouth exam: PRESENT: moist, tongue midline Neck exam: ABSENT: carotid bruit, JVD, lymphadenopathy, thyromegaly Respiratory exam: PRESENT: clear to auscultation corine. ABSENT: rales, rhonchi, wheezes Cardiovascular exam: PRESENT: tachycardia, other - Defibrillator/pacemaker present. Pulses: PRESENT: normal dorsalis pedis pul GI/Abdominal exam: PRESENT: normal bowel sounds, soft. ABSENT: distended, guarding, mass, organolmegaly, rebound, tenderness Extremities exam: PRESENT: full ROM. ABSENT: calf tenderness, clubbing, pedal edema Neurological exam: PRESENT: alert, awake, oriented to person, oriented to place, oriented to time, oriented to situation, CN II-XII grossly intact. ABSENT: motor sensory deficit Psychiatric exam: PRESENT: appropriate affect, normal mood. ABSENT: homicidal ideation, suicidal ideation Results Laboratory Results: 05/13/18 06:37 05/13/18 06:37 05/12/18 05/13/18 05/13/18 16:30 06:37 06:37 WBC 7.5 RBC 4.21 L Hgb 13.7 Hct 39.7 MCV 94 MCH 32.5 MCHC 34.5 RDW 13.6 Plt Count 236 Seg Neutrophils % 59.2 Lymphocytes % 24.3 Monocytes % 9.2 Eosinophils % 6.2 H Basophils % 1.1 Absolute Neutrophils 4.4 Absolute Lymphocytes 1.8 Absolute Monocytes 0.7 Absolute Eosinophils 0.5 Absolute Basophils 0.1 Sodium 142.5 Potassium 4.6 Chloride 109 H Carbon Dioxide 26 Anion Gap 8 BUN 24 H Creatinine 1.36 H Est GFR ( Amer) > 60 Est GFR (Non-Af Amer) 51 L Glucose 76 Calcium 9.0 Magnesium 2.3 Total Bilirubin 0.4 AST 29 ALT 20 L Alkaline Phosphatase 70 Total Protein 7.2 Albumin 4.1 Triglycerides 136 Cholesterol 116.17 LDL Cholesterol Direct 56 VLDL Cholesterol 27.0 HDL Cholesterol 36 L TSH Urine Color YELLOW Urine Appearance CLEAR Urine pH 6.0 Ur Specific Vass 1.006 Urine Protein NEGATIVE Urine Glucose (UA) NEGATIVE Urine Ketones TRACE H Urine Blood NEGATIVE Urine Nitrite NEGATIVE Ur Leukocyte Esterase NEGATIVE Urine WBC (Auto) 1 Urine RBC (Auto) 2 05/13/18 06:37 WBC RBC Hgb Hct MCV MCH MCHC RDW Plt Count Seg Neutrophils % Lymphocytes % Monocytes % Eosinophils % Basophils % Absolute Neutrophils Absolute Lymphocytes Absolute Monocytes Absolute Eosinophils Absolute Basophils Sodium Potassium Chloride Carbon Dioxide Anion Gap BUN Creatinine Est GFR ( Amer) Est GFR (Non-Af Amer) Glucose Calcium Magnesium Total Bilirubin AST ALT Alkaline Phosphatase Total Protein Albumin Triglycerides Cholesterol LDL Cholesterol Direct VLDL Cholesterol HDL Cholesterol TSH 3.93 Urine Color Urine Appearance Urine pH Ur Specific Vass Urine Protein Urine Glucose (UA) Urine Ketones Urine Blood Urine Nitrite Ur Leukocyte Esterase Urine WBC (Auto) Urine RBC (Auto) 05/12/18 05/12/18 05/12/18 13:10 13:10 15:36 Creatine Kinase 36 L CK-MB (CK-2) 0.76 Troponin I < 0.012 < 0.012 05/12/18 05/12/18 05/13/18 18:05 18:05 00:27 Creatine Kinase 37 L 35 L CK-MB (CK-2) 0.65 Troponin I < 0.012 05/13/18 05/13/18 05/13/18 00:27 06:37 06:37 Creatine Kinase 31 L CK-MB (CK-2) 0.53 0.54 Troponin I < 0.012 < 0.012 Impressions: Chest X-Ray 05/12/18 12:21 IMPRESSION: NO ACUTE RADIOGRAPHIC FINDING IN THE CHEST. Head CT 05/12/18 12:21 IMPRESSION: NORMAL BRAIN CT WITHOUT CONTRAST. EVIDENCE OF ACUTE STROKE: NO. Qualifiers - * PATIENT BEING DISCHARGED WITH ANY OF THE FOLLOWING DIAGNOSIS: No VTE patient discharged on overlapping Therapy?: Yes
[2018-05-13] MEDS ORDERED: METRONIDAZOLE RTU 500 MG/NS 100 ML IV SCH (18:00)
== END 2018-05-13 14:21 | disposition home or self-care (01) ==
LOC: ER 12:18 → EH 17:48
PROVIDERS: ADMIT Internal Medicine; ATTEND Internal Medicine
DX: R07.9 Chest pain, unspecified (principal); R20.0 Anesthesia of skin; R53.1 Weakness; R41.0 Disorientation, unspecified; D72.829 Elevated white blood cell count, unspecified; I48.2 Chronic atrial fibrillation; E03.9 Hypothyroidism, unspecified; E78.5 Hyperlipidemia, unspecified; J44.9 Chronic obstructive pulmonary disease, unspecified; I12.9 Hypertensive chronic kidney disease with stage 1 through stage 4 chronic kidney disease, or unspecified chronic kidney disease; N18.9 Chronic kidney disease, unspecified; R42 Dizziness and giddiness; G20 Parkinson's disease; Z86.73 Personal history of transient ischemic attack (TIA), and cerebral infarction without residual deficits; Z82.49 Family history of ischemic heart disease and other diseases of the circulatory system; Z79.02 Long term (current) use of antithrombotics/antiplatelets; Z66 Do not resuscitate; Z79.899 Other long term (current) drug therapy; Z79.82 Long term (current) use of aspirin; Z95.810 Presence of automatic (implantable) cardiac defibrillator; Z90.49 Acquired absence of other specified parts of digestive tract; Z90.3 Acquired absence of stomach [part of]; Z87.11 Personal history of peptic ulcer disease; Z98.890 Other specified postprocedural states; Z86.19 Personal history of other infectious and parasitic diseases; Z87.01 Personal history of pneumonia (recurrent)
CPT/HCPCS: 93005; 99285; 96374; 96375; 36415 ×2; 87040; 87045; 87086; 87205; 82553 ×2; 82962; 82550 ×2; 83735; 84443; 85025 ×2; 85610; 80053 ×2; 81001; 84484 ×2; 80164; 80061; 71045; 70450; 93010; G0378 ×2; A9270 ×12; J3010; J2060; J3490; J1650; J7030; J0696

== ENCOUNTER → 2018-06-19 | Outpatient (CLI) | payer MEDICARE, MEDICAID ==
[2018-06-19 11:50] LABS: HEMATOCRIT 39.1 % (37.9-51.0); HEMOGLOBIN 13.5 g/dL (13.5-17.0); MEAN CORPUSCULAR HEMOGLOBIN 32.6 pg (27.0-33.4); MEAN CORPUSCULAR HGB CONC 34.4 g/dL (32.0-36.0); MEAN CORPUSCULAR VOLUME 95 fl (80-97); PLATELET COUNT 256 10^3/uL (150-450); RED BLOOD COUNT 4.13 10^6/uL (4.35-5.55); RED CELL DISTRIBUTION WIDTH 13.9 % (11.5-14.0); WHITE BLOOD COUNT 7.6 10^3/uL (4.0-10.5)
[2018-06-19 12:13] LABS: ANION GAP 8 (5-19); BLOOD UREA NITROGEN 20 mg/dL (7-20); CALCIUM 9.3 mg/dL (8.4-10.2); CARBON DIOXIDE 28 mmol/L (22-30); CHLORIDE 108 mmol/L (98-107); GLUCOSE 79 mg/dL (75-110); POTASSIUM 5.1 mmol/L (3.6-5.0); SODIUM 144.4 mmol/L (137-145)
== END ==
LOC: OD 10:18
PROVIDERS: ATTEND Internal Medicine Nephrology
DX: I12.9 Hypertensive chronic kidney disease with stage 1 through stage 4 chronic kidney disease, or unspecified chronic kidney disease (principal); N18.3 Chronic kidney disease, stage 3 (moderate)
CPT/HCPCS: 36415; 80048; 85027

== ENCOUNTER → 2018-09-19 | Outpatient (CLI) | payer MEDICARE, MEDICAID ==
--- NOTE | 2018-09-19 11:10 | RADIOLOGY REPORT (SQ) ---
EXAM DESCRIPTION: CT HEAD WITHOUT COMPLETED DATE/TIME: 09/19/2018 10:05 am REASON FOR STUDY: HEADACHES (R51) M54.2 CERVICALGIA R51 HEADACHE COMPARISON: 05/12/2018 TECHNIQUE: Axial images acquired through the brain without intravenous contrast. Images reviewed wi th bone, brain and subdural windows. Additional sagittal and coronal reconstructions were generated. Images stored on PACS. All CT scanners at this facility use dose modulation, iterative reconstruction, and/or weight based d osing when appropriate to reduce radiation dose to as low as reasonably achievable (ALARA). [facility]: Dose Right [facility]: CareDose [facility]: Dose Right [facility]: Teradose 4D [facility]: [employer] RADIATION DOSE: CT Rad equipment meets quality standard of care and radiation dose reduction techniq ues were employed. CTDIvol: 48.5 mGy. DLP: 904 mGy-cm.mGy. LIMITATIONS: None. FINDINGS: VENTRICLES: Prominent. CEREBRUM: No masses. No hemorrhage. No midline shift. Areas of low density in the white matter mos t likely due to chronic micro-vascular ischemic change. No evidence for acute infarction. CEREBELLUM: No masses. No hemorrhage. No alteration of density. No evidence for acute infarction. EXTRAAXIAL SPACES: Age-related involutional change. No fluid collections. No masses. ORBITS AND GLOBE: No intra- or extraconal masses. Normal contour of globe without masses. CALVARIUM: No fracture. PARANASAL SINUSES: No fluid or mucosal thickening. SOFT TISSUES: No mass or hematoma. OTHER: No other significant finding. IMPRESSION: CHRONIC CHANGES OF ATROPHY AND MICROVASCULAR ISCHEMIA. NO ACUTE PROCESS. EVIDENCE OF ACUTE STROKE: NO. TECHNICAL DOCUMENTATION: JOB ID: [id number] Quality ID # [id number]: Final reports with documentation of one or more dose reduction techniques (e.g., Au tomated exposure control, adjustment of the mA and/or kV according to patient size, use of iterative reconstruction technique) 2010 [employer]- All Rights Reserved Reading location - IP/workstation name: [email or web address]
--- NOTE | 2018-09-19 13:55 | RADIOLOGY REPORT (SQ) ---
EXAM DESCRIPTION: CT CERVICAL SPINE WITHOUT COMPLETED DATE/TIME: 09/19/2018 10:05 am REASON FOR STUDY: HEADACHES (R51), NECK PAIN (M54.2) M54.2 CERVICALGIA R51 HEADACHE COMPARISON: 05/24/2015 TECHNIQUE: Axial images acquired through the cervical spine without intravenous contrast. Images re viewed with lung, soft tissue and bone windows. Reconstructed coronal and sagittal MPR images review ed. Images stored on PACS. All CT scanners at this facility use dose modulation, iterative reconstruction, and/or weight based d osing when appropriate to reduce radiation dose to as low as reasonably achievable (ALARA). [facility]: Dose Right [facility]: CareDose [facility]: Dose Right [facility]: Teradose 4D [facility]: [employer] RADIATION DOSE: CT Rad equipment meets quality standard of care and radiation dose reduction techniq ues were employed. CTDIvol: 22.3 mGy. DLP: 544 mGy-cm. mGy. LIMITATIONS: None. FINDINGS: ALIGNMENT: Anatomic. MINERALIZATION: Normal. VERTEBRAL BODIES: No fractures or dislocation. DISCS: Disc space narrowing at multiple levels. Collapse of the disc space with osteophyte formation at C4-5. FACETS, LATERAL MASSES, POSTERIOR ELEMENTS: Facet arthropathy. No fractures. No dislocation. No ac ileana findings. HARDWARE: None in the spine. VISUALIZED RIBS: No fractures. LUNG APICES AND SOFT TISSUES: No significant or acute findings. OTHER: No other significant finding. IMPRESSION: Cervical disc disease C4- 5. 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 TECHNICAL DOCUMENTATION: JOB ID: [id number] Quality ID # [id number]: Final reports with documentation of one or more dose reduction techniques (e.g., Au tomated exposure control, adjustment of the mA and/or kV according to patient size, use of iterative reconstruction technique) 2010 [employer]- All Rights Reserved Reading location - IP/workstation name: [email or web address]
== END ==
LOC: RAD 09:34
PROVIDERS: ATTEND Neurological Surgery
DX: M54.2 Cervicalgia (principal); R51 Headache; M50.821 Other cervical disc disorders at C4-C5 level
CPT/HCPCS: 70450; 72125

== ENCOUNTER 2018-10-24 19:17 | Emergency (ER) | payer MEDICARE, MEDICAID ==
[2018-10-24] MEDS ORDERED: AMOXICILLIN TR/POT CLAVULANATE 500-125 MG TAB PO ONE (19:26)
[2018-10-24] MEDS ORDERED: DIPH/PERTUSS(ACELL)/TETANUS VAC/PF 0.5 ML SYR (>=10YO) IM ONE (19:26)
[2018-10-24] MEDS ORDERED: AMOXICILLIN TRIHYDRATE 500 MG CAPSULE PO ONE (19:26)
--- NOTE | 2018-10-24 19:41 | ER Document Report ---
HPI - HPI Time Seen by Provider: 10/24/18 19:19 Pain Level: 5 Notes: Patient is a 72-year-old male presented to the emergency department with dog bites. Patient has multiple dog bites to his bilateral forearms and hands. He states he walked outside his trailer when his neighbors dogs were outside in the yard. He states his neighbors dogs were on chains attached to cinderblocks and the dogs were too large pit bulls who lunged at him and drug the cinderblocks across the yard and started attacking him. He is unsure when his last tetanus shot was. He is unsure as to the vaccine status of the dog's. - REPRODUCTIVE Reproductive: DENIES: : Past Medical History - General Information source: Patient - Social History Smoking Status: Never Smoker Frequency of alcohol use: None Drug Abuse: None Family History: Reviewed & Not Pertinent, CAD - Father - Past Medical History Cardiac Medical History: Reports: Hx Atrial Fibrillation, Hx Hypercholesterolemia, Hx Hypertension Denies: Hx Congestive Heart Failure, Hx Coronary Artery Disease, Hx Heart Attack, Hx Peripheral Vascular Disease, Hx Pulmonary Embolism, Hx Heart Murmur Pulmonary Medical History: Reports: Hx COPD, Hx Pneumonia Denies: Hx Asthma, Hx Bronchitis, Hx Respiratory Failure, Hx Sleep Apnea, Hx Tuberculosis Neurological Medical History: Reports: Hx Cerebrovascular Accident, Hx Migraine. Denies: Hx Seizures Endocrine Medical History: Reports: Hx Hypothyroidism Renal/ Medical History: Denies: Hx Peritoneal Dialysis Malignancy Medical History: Denies Hx Lung Cancer GI Medical History: Reports: Hx Gastroesophageal Reflux Disease, Hx Ulcer. Denies: Hx Crohn's Disease, Hx Hiatal Hernia, Hx Irritable Bowel, Hx Liver Failure, Hx Pancreatitis Musculoskeletal Medical History: Reports Hx Arthritis, Denies Hx Fibromyalgia, Denies Hx Muscular Dystrophy Psychiatric Medical History: Denies: Hx Depression Traumatic Medical History: Reports: Hx Fractures Past Surgical History: Reports: Hx Abdominal Surgery - hernia, ulcer, Hx Appendectomy, Hx Cardiac Surgery - pacemaker, Hx Herniorrhaphy, Hx Pacemaker - meditronic, ventricular, Other - Partial gastric resection secondary to ulcer. Denies: Hx Cardiac Catheterization, Hx Colostomy, Hx Coronary Stent - Immunizations Hx Diphtheria, Pertussis, Tetanus Vaccination: No - unknown Hx Pneumococcal Vaccination: 02/28/10 Vertical Provider Document - CONSTITUTIONAL Notes: PHYSICAL EXAMINATION: GENERAL: Well-appearing, well-nourished and in no acute distress. HEAD: Atraumatic, normocephalic. EYES: Pupils equal round extraocular movements intact, conjunctiva are normal. ENT: Nares patent NECK: Normal range of motion LUNGS: No respiratory distress Musculoskeletal: Normal range of motion NEUROLOGICAL: Normal speech, normal gait. PSYCH: Normal mood, normal affect. SKIN: Multiple puncture wounds to bilateral forearms as well as left hand, bleeding controlled. Strong radial pulses bilaterally, cap refill less than 3 seconds, normal motor and sensation distal to injuries. - INFECTION CONTROL TRAVEL OUTSIDE OF THE [place] IN LAST 30 DAYS: No Course - Re-evaluation Re-evalutation: 10/24/18 19:41 Call was placed to animal control on patient's behalf. Awaiting callback. Tetanus shot updated. Patient started on Augmentin. PCT is at the bedside irrigating the wounds. They will then be cleaned with saline and Shur-Clens. Patient will follow-up with his primary care provider for a wound recheck in the next 24 to 48 hours. We discussed rabies prophylaxis, I do not feel this is indicated at this time as patient reports that the dogs did not appear unwell he just continues to state that they were "bad dogs and aggressive dogs". 10/24/18 20:08 Nursing staff copiously irrigated and cleaned the wounds. He received medications as ordered. Strict ED return precautions were discussed to include worsening signs of infection. Patient and his brother at the bedside verbalized understanding and agreement with same. Call received from [employer], animal control form was faxed by nursing staff. They will follow-up with patient in the morning. Discharge - Discharge Clinical Impression: Dog bite Qualifiers: Encounter type: initial encounter Qualified Code(s): W54.0XXA - Bitten by dog, initial encounter Condition: Stable Disposition: HOME, SELF-CARE Additional Instructions: Animal Bites Animal bites are often heavily contaminated with bacteria. In spite of thorough cleansing and proper treatment, these wounds frequently become infected. Bite wounds of the hands are especially prone to complications. Bites are dressed, if possible. Large wounds may require suturing after internal cleansing. Because of infection risk, some large wounds must remain unstitched. Your doctor is trained to advise you on the best treatment for your bite. Call the doctor at once if the wound becomes red, swollen, warm, increasingly painful, or if it begins to drain. Danger signs also include red streaks up the involved extremity, swollen glands in the groin or under the arm, or fever and chills. The risk of rabies from domestic animals is very low. Bats, sick animals, and wild animals may expose you to rabies. The physician, or the health department, will inform you if you will need to receive the rabies vaccine. Augmentin Augmentin is a mixture of amoxicillin and clavulanate. Amoxicillin is a member of the penicillin family. It covers the germs likely to cause ear, bronchial, and urinary infections better than plain penicillin. The addition of clavulanate allows it to cover staph infections of the skin, as well as resistant cases of ear and sinus infections. Your physician has chosen Augmentin for you because of the special nature of your situation. Augmentin is best taken with meals. Nausea after taking the medication is rare, but can occur. Diarrhea can occur, particularly in small children. Vaginal yeast infections, and oral thrush in infants are also common. Contact your physician if these problems occur. Allergy to penicillins is common. If you have had an allergic reaction to any drug of the penicillin family, you should never take any other penicillin. Notify your doctor at once if you develop hives, shortness of breath, swelling, or faintness. Tetanus Immunization Given You have been given an immunization against tetanus. Please record this in your records. In general, a booster is needed only once every 10 years. The tetanus shot protects against tetanus or "lockjaw," which is a complication of certain wound infections (the tetanus shot cannot protect against the actual infection). The immunization site may become warm and red due to local reaction. If this occurs, apply warm compresses and take aspirin or ibuprofen to reduce inflammation and discomfort. Return for evaluation if the reaction becomes severe. Please take antibiotics as prescribed. Watch very closely for signs of infection to include increasing swelling, pain, redness, red streaking from the area, development of fever or any other worsening symptoms. Please follow-up with your primary care provider, call her tomorrow to schedule appointment, let her know you are seen in the emergency department and suffered multiple dog bites to your hands and forearms. Let her know we put you on antibiotics but we want you to have a wound recheck. Prescriptions: Amox Tr/Potassium Clavulanate [Augmentin 875-125 mg Tablet] 1 tab PO BID #20 tablet Referrals: AUSTIN BERMUDEZ MD [COMMUNITY BASED STAFF] - Follow up as needed
[2018-10-24 20:03] VITALS: BP 121/71
== END 2018-10-24 20:00 | disposition home or self-care (01) ==
LOC: ER 19:17
DX: S51.852A Open bite of left forearm, initial encounter (principal); S51.851A Open bite of right forearm, initial encounter; S61.452A Open bite of left hand, initial encounter; W54.0XXA Bitten by dog, initial encounter; Y92.027 Garden or yard of mobile home as the place of occurrence of the external cause; I10 Essential (primary) hypertension; J44.9 Chronic obstructive pulmonary disease, unspecified; Z23 Encounter for immunization
CPT/HCPCS: 99283; 90471; 90715; A9270 ×2

== ENCOUNTER 2018-10-26 18:17 | Inpatient (IN) | payer MEDICARE, MEDICAID ==
--- NOTE | 2018-10-26 18:51 | ER Document Report ---
ED Medical Screen (RME) - General Chief Complaint: Wound Recheck Stated Complaint: SWOLLEN HAND Time Seen by Provider: 10/26/18 18:46 Primary Care Provider: DELFINO BLACKMON PA-C [Primary Care Provider] - Follow up as needed Mode of Arrival: Ambulatory Information source: Patient Notes: Patient presents to the emergency department with left hand swollen red. Reports dog bite 2 days ago. She reports he was treated here. Reports he has been taking the antibiotics as prescribed. Denies fever. Reports pain with movement. I have greeted and performed a rapid initial assessment of this patient. A comprehensive ED assessment and evaluation of the patient, analysis of test results and completion of the medical decision making process will be conducted by additional ED providers. Dictation of this chart was performed using voice recognition software; therefore, there may be some unintended grammatical errors. TRAVEL OUTSIDE OF THE [place] IN LAST 30 DAYS: No - Related Data Allergies/Adverse Reactions: No Known Allergies Allergy (Verified 10/26/18 18:18) Past Medical History - Social History Chew tobacco use (# tins/day): No Frequency of alcohol use: None Drug Abuse: None Family history: Reviewed & Not Pertinent - Past Medical History Cardiac Medical History: Reports: Hx Atrial Fibrillation, Hx Hypercho lesterolemia, Hx Hypertension Denies: Hx Congestive Heart Failure, Hx Coronary Artery Disease, Hx Heart Attack, Hx Peripheral Vascular Disease, Hx Pulmonary Embolism, Hx Heart Murmur Pulmonary Medical History: Reports: Hx COPD, Hx Pneumonia Denies: Hx Asthma, Hx Bronchitis, Hx Respiratory Failure, Hx Sleep Apnea, Hx Tuberculosis Neurological Medical History: Reports: Hx Cerebrovascular Accident, Hx Migraine. Denies: Hx Seizures Endocrine Medical History: Reports: Hx Hypothyroidism Renal/ Medical History: Denies: Hx Peritoneal Dialysis Malignancy Medical History: Denies Hx Lung Cancer GI Medical History: Reports: Hx Gastroesophageal Reflux Disease, Hx Ulcer. Denies: Hx Crohn's Disease, Hx Hiatal Hernia, Hx Irritable Bowel, Hx Liver Failure, Hx Pancreatitis Musculoskeltal Medical History: Reports Hx Arthritis, Denies Hx Fibromyalgia, Denies Hx Muscular Dystrophy Psychiatric Medical History: Denies: Hx Depression Traumatic Medical History: Reports: Hx Fractures Past Surgical History: Reports: Hx Abdominal Surgery - hernia, ulcer, Hx Appendectomy, Hx Cardiac Surgery - pacemaker, Hx Herniorrhaphy, Hx Pacemaker - meditronic, ventricular, Other - Partial gastric resection secondary to ulcer. Denies: Hx Cardiac Catheterization, Hx Colostomy, Hx Coronary Stent - Immunizations Hx Diphtheria, Pertussis, Tetanus Vaccination: No - unknown Physical Exam - Vital signs Vitals: Temp Pulse Resp BP Pulse Ox 98.0 F 64 18 120/55 L 96 10/26/18 18:24 10/26/18 18:24 10/26/18 18:24 10/26/18 18:24 10/26/18 18:24 Course - Vital Signs Vital signs: Temp Pulse Resp BP Pulse Ox 98.0 F 64 18 120/55 L 96 10/26/18 18:24 10/26/18 18:24 10/26/18 18:24 10/26/18 18:24 10/26/18 18:24 Doctor's Discharge - Discharge Referrals: DELFINO BLACKMON PA-C [Primary Care Provider] - Follow up as needed
--- NOTE | 2018-10-26 19:21 | RADIOLOGY REPORT (SQ) ---
EXAM DESCRIPTION: HAND LEFT 3 VIEWS COMPLETED DATE/TIME: 10/26/2018 7:06 pm REASON FOR STUDY: dog bite, swollen, erythema COMPARISON: None. EXAM PARAMETERS: NUMBER OF VIEWS: Three views. TECHNIQUE: AP, lateral and oblique radiographic images acquired of the left hand. LIMITATIONS: None. FINDINGS: MINERALIZATION: Normal. BONES: No acute fracture or dislocation. No worrisome bone lesions. JOINTS: No effusions. SOFT TISSUES: Soft tissue swelling about the thumb. No foreign body. OTHER: No other significant finding. IMPRESSION: No fracture dislocation of the left hand. No radiopaque foreign body. Soft tissue swel ling about the thumb. TECHNICAL DOCUMENTATION: JOB ID: [id number] [employer]- All Rights Reserved Reading location - IP/workstation name: [email or web address]
--- NOTE | 2018-10-26 21:12 | ER Document Report ---
ED General - General Chief Complaint: Wound Recheck Stated Complaint: SWOLLEN HAND Time Seen by Provider: 10/26/18 18:46 Primary Care Provider: DELFINO BLACKMON PA-C [Primary Care Provider] - Follow up as needed Mode of Arrival: Ambulatory Information source: Patient TRAVEL OUTSIDE OF THE [place] IN LAST 30 DAYS: No - HPI Patient complains to provider of: Dog bites to left hand and right forearm Onset: Other - 2 days ago Onset/Duration: Gradual, Worse Quality of pain: Sharp Severity: Severe Pain Level: 5 Associated symptoms: None Exacerbated by: Denies Relieved by: Denies Similar symptoms previously: No Recently seen / treated by doctor: No Notes: 72-year-old male coming in for recheck of dog bites. He was bit by 2 pit bull dogs 2 days ago. Evaluated by 1 of our providers here. X-rays are negative. Mostly puncture wounds to the left hand but large laceration to the right forearm. Patient comes in today with worsened redness and swelling of both the hand and the forearm. He is afebrile no shaking chills. History of stroke, pacer, COPD, hypertension, long previous history of smoking and Eliquis use. - Related Data Allergies/Adverse Reactions: No Known Allergies Allergy (Verified 10/26/18 18:18) Past Medical History - General Information source: Patient - Social History Smoking Status: Former Smoker Chew tobacco use (# tins/day): No Frequency of alcohol use: None Drug Abuse: None Family History: Reviewed & Not Pertinent, CAD - Father Patient has suicidal ideation: No Patient has homicidal ideation: No - Past Medical History Cardiac Medical History: Reports: Hx Atrial Fibrillation, Hx Hypercholesterolemia, Hx Hypertension Denies: Hx Congestive Heart Failure, Hx Coronary Artery Disease, Hx Heart Attack, Hx Peripheral Vascular Disease, Hx Pulmonary Embolism, Hx Heart Murmur Pulmonary Medical History: Reports: Hx COPD, Hx Pneumonia Denies: Hx Asthma, Hx Bronchitis, Hx Respiratory Failure, Hx Sleep Apnea, Hx Tuberculosis Neurological Medical History: Reports: Hx Cerebrovascular Accident, Hx Migraine. Denies: Hx Seizures Endocrine Medical History: Reports: Hx Hypothyroidism Renal/ Medical History: Denies: Hx Peritoneal Dialysis Malignancy Medical History: Denies Hx Lung Cancer GI Medical History: Reports: Hx Gastroesophageal Reflux Disease, Hx Ulcer. Denies: Hx Crohn's Disease, Hx Hiatal Hernia, Hx Irritable Bowel, Hx Liver Failure, Hx Pancreatitis Musculoskeletal Medical History: Reports Hx Arthritis, Denies Hx Fibromyalgia, Denies Hx Muscular Dystrophy Psychiatric Medical History: Denies: Hx Depression Traumatic Medical History: Reports: Hx Fractures Past Surgical History: Reports: Hx Abdominal Surgery - hernia, ulcer, Hx Appendectomy, Hx Cardiac Surgery - pacemaker, Hx Herniorrhaphy, Hx Pacemaker - meditronic, ventricular, Other - Partial gastric resection secondary to ulcer. Denies: Hx Cardiac Catheterization, Hx Colostomy, Hx Coronary Stent - Immunizations Hx Diphtheria, Pertussis, Tetanus Vaccination: No - unknown Hx Pneumococcal Vaccination: 02/28/10 Review of Systems - Review of Systems Notes: Constitutional: No fevers. No chills. EENT: No eye redness. No eye pain. No ear pain. No sore throat. Cardiovascular: No chest pain. No palpitations. Respiratory: No cough. No shortness of breath. No respiratory distress. Gastrointestinal: No abdominal pain. No nausea, vomiting, or diarrhea. Genitourinary: Atraumatic. No lesions. No pain. No discharge. Musculoskeletal: Positive for puncture wounds to the left hand. Positive for puncture wounds and large laceration to right forearm Skin: Positive for cellulitis left hand and right forearm Lymphatic: No swollen lymph nodes. Neurologic: No headache. No syncope. Psychiatric: No suicidal or homicidal ideation. Physical Exam - Vital signs Vitals: Temp Pulse Resp BP Pulse Ox 98.0 F 64 18 120/55 L 96 10/26/18 18:24 10/26/18 18:24 10/26/18 18:24 10/26/18 18:24 10/26/18 18:24 - Notes Notes: General: Well-developed, well-nourished. In no acute distress. Non-toxic ap pearing. Cardiac: Well-perfused. Regular rate and rhythm. No murmurs, rubs, or gallops. Pulmonary: No respiratory distress. No cyanosis. Bilateral lung fiels are clear to auscultation. Abdominal: Non-distended. Non-rigid. Bowels sounds are present in all four quadrants. No guarding or rebound. HEENT: Head is atraumatic. Conjunctivae not reddened. No tearing. PERRL. EOMI. Orbits atraumatic. No periorbital swelling or erythema. Oropharynx is without erythema, swelling, or exudates. Neck: Supple. No adenopathy. No meningismus. Dermatologic: Warm with good turgor. No rash. Atraumatic. Chest: Atraumatic. No chest wall tenderness to palpation. Musculoskeletal: Left hand multiple puncture wounds to the palm and dorsum moderate soft tissue swelling. Right forearm with 4 to 5 cm laceration which is open on the dorsal aspect. Other scratches and puncture wounds also present. There is good range of motion of all the joints in the left hand as well as in the right forearm, elbow wrist and fingers. Distal neurovascular exam is intact Genitourinary: Examination deferred Neurologic: No gross neurologic deficits. Psychiatric: Normal mood. Course - Re-evaluation Re-evalutation: 10/26/18 21:15 This appears to be an outpatient failure. Patient is elderly. Has lots of chronic medical problems. Longtime smoker. Phone call placed to hospitalist. He will come by to assess the patient. 10/26/18 23:11 Dr. Ho will admit the patient after evaluating him bedside. - Vital Signs Vital signs: Temp Pulse Resp BP Pulse Ox 98.0 F 64 18 120/55 L 96 10/26/18 18:24 10/26/18 18:24 10/26/18 18:24 10/26/18 18:24 10/26/18 18:24 - Laboratory Result Diagrams: 10/26/18 21:15 10/26/18 21:15 Laboratory results interpreted by me: 10/26/18 10/26/18 21:15 21:15 RBC 3.66 L Hgb 11.8 L Hct 34.7 L Chloride 110 H BUN 23 H Creatinine 1.47 H Est GFR ( Amer) 57 L Est GFR (Non-Af Amer) 47 L Discharge - Discharge Clinical Impression: Animal bite Cellulitis Qualifiers: Site of cellulitis: unspecified site Qualified Code(s): L03.90 - Cellulitis, unspecified Condition: Good Disposition: ADMITTED INPATIENT Admitting Provider: [place] (Hospitalist) Unit Admitted: Medical Floor Referrals: DELFINO BLACKMON PA-C [Primary Care Provider] - Follow up as needed
[2018-10-26 21:27] LABS: ABSOLUTE BASOPHILS # (AUTO) 0.1 10^3/uL (0.0-0.2); ABSOLUTE EOSINOPHILS # (AUTO) 0.5 10^3/uL (0.0-0.6); ABSOLUTE LYMPHOCYTES (AUTO) 1.6 10^3/uL (0.5-4.7); ABSOLUTE MONOCYTES (AUTO) 0.8 10^3/uL (0.1-1.4); BASOPHILS % (AUTO) 0.8 % (0-2); HEMATOCRIT 34.7 % (37.9-51.0); HEMOGLOBIN 11.8 g/dL (13.5-17.0); LYMPHOCYTES % (AUTO) 17.2 % (13-45); MEAN CORPUSCULAR HEMOGLOBIN 32.2 pg (27.0-33.4); MEAN CORPUSCULAR HGB CONC 33.9 g/dL (32.0-36.0); MEAN CORPUSCULAR VOLUME 95 fl (80-97); MONOCYTES % (AUTO) 9.1 % (3-13); PLATELET COUNT 222 10^3/uL (150-450); RED BLOOD COUNT 3.66 10^6/uL (4.35-5.55); RED CELL DISTRIBUTION WIDTH 13.9 % (11.5-14.0); SEGMENTED NEUTROPHILS % (AUTO) 66.9 % (42-78); TOTAL CELLS COUNTED % (AUTO) 100 %
[2018-10-26 21:44] LABS: ALANINE AMINOTRANSFERASE 22 U/L (21-72); ALBUMIN 3.8 g/dL (3.5-5.0); ALKALINE PHOSPHATASE 79 U/L (38-126); ANION GAP 10 (5-19); ASPARTATE AMINO TRANSFERASE 30 U/L (17-59); BILIRUBIN,DIRECT 0.3 mg/dL (0.0-0.4); BILIRUBIN,TOTAL 0.4 mg/dL (0.2-1.3); BLOOD UREA NITROGEN 23 mg/dL (7-20); CALCIUM 8.7 mg/dL (8.4-10.2); CARBON DIOXIDE 22 mmol/L (22-30); CHLORIDE 110 mmol/L (98-107); GLUCOSE 91 mg/dL (75-110); POTASSIUM 4.7 mmol/L (3.6-5.0); SODIUM 141.6 mmol/L (137-145); TOTAL PROTEIN 6.9 g/dL (6.3-8.2)
--- NOTE | 2018-10-27 00:21 | PDOC H&P ---
History of Present Illness Admission Date/PCP: 10/26/2018 22:32 DELFINO BLACKMON PA-C Patient complains of: Increased redness and swelling of dog bite wounds History of Present Illness: LIONEL SHELLEY is a 72 year old male who presented to the emergency room with increased redness and swelling of his previously treated dog bites. He admits that on 10/24/2018 he was treated in the ER for bites that he received from 2 pitbull dogs just prior to that visit. His wounds were cleaned and he was started on a wound care regiment with cleansing and oral antibiotics (Augmentin). Since that time he is noticed increasing redness and swelling of the bite sites involving the left hand and right forearm. He admits constant, nonradiating, moderate, aching pain at the sites of the dog bites since the injury. He denies other associated or accompanying symptoms. He denies prior similar episodes and has not identified any other aggravating or ameliorating factors for his increased redness and swelling. In the emergency room he was noted to have erythema and edema of the areas surrounding the wounds and mild erythematous streaking following the lymphatic channels of both arms to above the elbow. Patient was subsequently admitted to the hospital for further evaluation and treatment. Past Medical History Cardiac Medical History: Reports: Atrial Fibrillation - Paroxysmal, Hyperlipidema, Hypertension Denies: Congestive Heart Failure, Coronary Artery Disease, Myocardial Infarction, Peripheral Vascular Disease, Pulmonary Embolism, Heart Murmur Pulmonary Medical History: Reports: Chronic Obstructive Pulmonary Disease ([employer] D), Pneumonia, Sleep Apnea - Uses oxygen at night Denies: Asthma, Bronchitis, Respiratory Failure, Tuberculosis EENT Medical History: Denies: Cataracts, Ears - Hearing aids Neurological Medical History: Reports: Ischemic CVA, Migraine, Other - Multiple TIAs Denies: Hemorrhagic CVA, Seizures Endocrine Medical History: Reports: Hypothyroidism Denies: Diabetes Mellitus Type 1, Diabetes Mellitus Type 2, Hyperthyroidism Renal/ Medical History: Reports: Chronic Kidney Disease Denies: Nephrolithiasis Malignancy Medical History: Reports: None GI Medical History: Reports: Gastroesophageal Reflux Disease, Peptic Ulcer Disease Denies: Cirrhosis, Crohn's Disease, Diverticulitis, Hepatitis, Hiatal Hernia, Ulcerative Colitis Musculoskeltal Medical History: Reports: Arthritis Denies: Fibromyalgia Skin Medical History: Denies: Eczema, Psoriasis Psychiatric Medical History: Reports: Tobacco Dependency Denies: Alcohol Dependency, Depression, Substance Abuse Traumatic Medical History: Reports: None Hematology: Denies: Anemia, Bleeding Tendencies Infectious Medical History: Reports: None Past Surgical History Past Surgical History: The patient reports partial gastric resection secondary to ulcer, with a second Billroth procedure performed to correct the first procedure at a later date. Past Surgical History: Reports: Appendectomy, Herniorrhaphy, Pacemaker - [employer]: single lead ventricular pacemaker, Other Social History Information Source: Patient Lives with: Friend Smoking Status: Former Smoker Frequency of Alcohol Use: None Hx Recreational Drug Use: No Drugs: None Hx Prescription Drug Abuse: No - Advance Directive Resuscitation Status: Full Code Surrogate healthcare decision maker:: Dominique Shelley Family History Family History: CAD - Father, Other - Kidney disease and dementia. denies: DM, Malignancy Parental Family History Reviewed: Yes Children Family History Reviewed: No Sibling(s) Family History Reviewed.: Yes Medication/Allergy Home Medications: Acetaminophen [Tylenol Extra Strength 500 mg Tablet] 1,000 mg PO Q4HP PRN 05/13/18 Albuterol Sulfate [Ventolin Hfa 8 gm Mdi (1 Mdi/ER Disp)] 2 puff IH RTQ4HP PRN inhaler 05/13/18 Amiodarone HCl [Cordarone 200 mg Tablet] 200 mg PO DAILY 05/13/18 Amiodarone HCl [Cordarone 200 mg Tablet] 200 mg PO DAILY tablet 05/13/18 Apixaban [Eliquis 5 mg Tablet] 5 mg PO BID tablet 05/13/18 Apixaban [Eliquis 5 mg Tablet] 5 mg PO Q12 05/13/18 Aspirin [Aspirin 81 mg Chewable Tablet] 81 mg PO DAILY tab.chew 05/13/18 Carbidopa/Levodopa [Sinemet 25-100 mg Tablet] 1 tab PO TID 05/13/18 Divalproex Sodium [Depakote ER 500 mg Tab.sr] 500 mg PO BID tab.sr.24h 05/13/18 Famotidine [Pepcid 20 mg Tablet] 20 mg PO Q12 tablet 05/13/18 Gabapentin [Neurontin 100 mg Capsule] 300 mg PO QHS 05/13/18 Glycopyrrolate/Formoterol Fum [Bevespi Aerosphere Inhaler] 2 puff IH 12 05/13/18 Levothyroxine Sodium 75 mcg PO Q6AM 05/13/18 Levothyroxine Sodium [Synthroid 0.05 mg Tablet] 0.075 mg PO Q6AM tablet 05/13/18 Metoprolol Succinate [Toprol Xl 25 mg Tab.sr] 12.5 mg PO DAILY 05/13/18 Midodrine HCl [Proamatine 5 mg Tablet] 5 mg PO BID 05/13/18 Pantoprazole Sodium [Protonix] 40 mg PO DAILY 05/13/18 Simvastatin [Zocor 10 mg Tablet] 20 mg PO QHS tablet 05/13/18 Simvastatin [Zocor 20 mg Tablet] 20 mg PO QPM 05/13/18 Amox Tr/Potassium Clavulanate [Augmentin 875-125 mg Tablet] 1 tab PO BID #20 tablet 10/24/18 Allergies/Adverse Reactions: No Known Allergies Allergy (Verified 10/26/18 18:18) Review of Systems Constitutional: ABSENT: chills, fever(s) Eyes: ABSENT: visual disturbances, other - Eye pain Ears: ABSENT: hearing changes, other - ear pain Nose, Mouth, and Throat: ABSENT: mouth pain, sore throat Cardiovascular: ABSENT: chest pain, palpitations Respiratory: ABSENT: cough, dyspnea Gastrointestinal: ABSENT: abdominal pain, constipation, diarrhea, dysphagia, nausea, vomiting Genitourinary: ABSENT: dysuria, hematuria Musculoskeletal: ABSENT: back pain, joint swelling, muscle weakness Integumentary: PRESENT: as per HPI, erythema, wounds. ABSENT: pruritus, rash Neurological: ABSENT: confusion, convulsions, focal weakness, memory loss, syncope Psychiatric: ABSENT: anxiety, depression Endocrine: ABSENT: cold intolerance, heat intolerance Hematologic/Lymphatic: ABSENT: easy bleeding, easy bruising Allergic/Immunologic: PRESENT: seasonal rhinorrhea Physical Exam Vital Signs: Temp Pulse Resp BP Pulse Ox 98.0 F 64 18 120/55 L 96 10/26/18 18:24 10/26/18 18:24 10/26/18 18:24 10/26/18 18:24 10/26/18 18:24 Intake & Output 10/24/18 10/25/18 10/26/18 23:59 23:59 23:59 Weight 66 kg General appearance: PRESENT: no acute distress, cooperative Head exam: PRESENT: atraumatic, normocephalic Eye exam: ABSENT: conjunctival injection, scleral icterus Ear exam: PRESENT: normal external ear exam. ABSENT: bleeding, drainage Mouth exam: PRESENT: dry mucosa, neck supple Neck exam: ABSENT: JVD, thyromegaly, tracheal deviation Respiratory exam: PRESENT: clear to auscultation corine, symmetrical, unlabored Cardiovascular exam: PRESENT: clicks, gallop, RRR, rubs Pulses: PRESENT: normal radial pulses, normal dorsalis pedis pul GI/Abdominal exam: PRESENT: normal bowel sounds, soft Rectal exam: PRESENT: deferred Extremities exam: ABSENT: joint swelling, pedal edema Musculoskeletal exam: PRESENT: full ROM, tenderness - Tenderness is noted in the areas of the dog bites on the left hand and wrist and the right forearm.. ABSENT: deformity, dislocation Neurological exam: PRESENT: alert, oriented to person, oriented to place, oriented to time, oriented to situation, CN II-XII grossly intact. ABSENT: motor sensory deficit Psychiatric exam: PRESENT: appropriate affect, normal mood Skin exam: PRESENT: dry, erythema - Erythema with associated edema and mild tenderness to palpation is noted around multiple puncture wounds and minor lacerations involving the left hand and wrist in the right forearm., warm, other - Lymphangitic erythema is noted bilaterally in the proximal forearm and just above the elbows.. ABSENT: jaundice, rash, urticaria Results Laboratory Results: 10/26/18 21:15 10/26/18 21:15 10/26/18 10/26/18 21:15 21:15 WBC 9.0 RBC 3.66 L Hgb 11.8 L Hct 34.7 L MCV 95 MCH 32.2 MCHC 33.9 RDW 13.9 Plt Count 222 Seg Neutrophils % 66.9 Lymphocytes % 17.2 Monocytes % 9.1 Eosinophils % 6.0 Basophils % 0.8 Absolute Neutrophils 6.0 Absolute Lymphocytes 1.6 Absolute Monocytes 0.8 Absolute Eosinophils 0.5 Absolute Basophils 0.1 Sodium 141.6 Potassium 4.7 Chloride 110 H Carbon Dioxide 22 Anion Gap 10 BUN 23 H Creatinine 1.47 H Est GFR ( Amer) 57 L Est GFR (Non-Af Amer) 47 L Glucose 91 Calcium 8.7 Total Bilirubin 0.4 AST 30 ALT 22 Alkaline Phosphatase 79 Total Protein 6.9 Albumin 3.8 Impressions: Hand X-Ray 10/26/18 18:50 IMPRESSION: No fracture dislocation of the left hand. No radiopaque foreign body. Soft tissue swelling about the thumb. Assessment and Plan - Diagnosis (1) Cellulitis of skin with lymphangitis Is this a current diagnosis for this admission?: Yes Plan: Patient will receive supportive and symptomatic cares. His infection will be treated with Zosyn and vancomycin IV. Blood and wound cultures will be obt ained. He will receive Nubain 10 mg IV every 3 hours on a as needed basis for pain. Daily CBC, metabolic profile and magnesium levels will be followed as part of monitoring the patient's infection and the therapy provided. (2) Open wound of right forearm due to dog bite Is this a current diagnosis for this admission?: Yes Plan: Patient will receive supportive and symptomatic cares. His infection will be treated with Zosyn and vancomycin IV. Blood and wound cultures will be obtained. He will receive Nubain 10 mg IV every 3 hours on a as needed basis for pain. (3) Open wound of left hand due to dog bite Is this a current diagnosis for this admission?: Yes Plan: Patient will receive supportive and symptomatic cares. His infection will be treated with Zosyn and vancomycin IV. Blood and wound cultures will be obtained. He will receive Nubain 10 mg IV every 3 hours on a as needed basis for pain. (4) Paroxysmal atrial fibrillation Is this a current diagnosis for this admission?: Yes Plan: Patient will be continued on his usual medications for treatment of his atrial fibrillation. (5) Chronic anticoagulation Is this a current diagnosis for this admission?: Yes Plan: Patient will be continued on Eliquis at his usual dosage. Consideration for the patient's anticoagulated state will be given during any further therapeutic decisions regarding his wound care and therapy. (6) Chronic renal insufficiency, stage III (moderate) Is this a current diagnosis for this admission?: Yes Plan: Patient's chronic renal insufficiency will be considered in all decisions regarding further therapy or other intervention. - Time Time Spent with patient: 25-34 minutes Medications reviewed and adjusted accordingly: Yes Anticipated discharge: Home - Inpatient Certification Based on my medical assessment, after consideration of the patient's comorbidities, presenting symptoms, or acuity I expect that the services needed warrant INPATIENT care.: Yes I certify that my determination is in accordance with my understanding of Medicare's requirements for reasonable and necessary INPATIENT services [42 CFR 412.3e].: Yes Medical Necessity: Failure to Improve With Outpatient Therapy, Significant Comorbidiites Make Outpatient Treatment Too Risky, Need Close Monitoring Due to Risk of Patient Decompensation, Need for IV Antibiotics, Risk of Complication if Not Cared For in Hospital
--- NOTE | 2018-10-27 00:22 | ADVANCED CARE ---
- Diagnosis (1) Cellulitis of skin with lymphangitis Diagnosis Current: Yes (2) Open wound of right forearm due to dog bite Diagnosis Current: Yes (3) Open wound of left hand due to dog bite Diagnosis Current: Yes (4) Paroxysmal atrial fibrillation Diagnosis Current: Yes (5) Chronic anticoagulation Diagnosis Current: Yes (6) Chronic renal insufficiency, stage III (moderate) Diagnosis Current: Yes Attendance: Patient and myself Resuscitation Status: Full Code Discussion: After brief discussion with patient wishes to remain full code resuscitation status for this hospitalization should he develop a cardiac or respiratory arrest. Additionally he wishes to designate Dominique Shelley as his surrogate medical decision-maker. Care Planning Goals: 1. Patient's CODE STATUS will remain full code for this hospitalization. 2. Dominiqueelaina Shelley is the patient's designated surrogate medical decision-maker. Document(s) Completed: The following entries will be made to the patient's permanent medical record and current hospital record and orders via EMR entry: 1. Patient's CODE STATUS will remain full code for this hospitalization. 2. Dominique Shelley is the patient's designated surrogate medical decision-maker. Time Spent: 6 minutes
[2018-10-27] MEDS ORDERED: ONDANSETRON HCL INJ/PF 4 MG/2 ML SDV IV PRN (00:23)
[2018-10-27] MEDS ORDERED: TEMAZEPAM 15 MG CAPSULE PO PRN (00:23)
[2018-10-27] MEDS ORDERED: MAGNESIUM HYDROXIDE SUSP 30 ML UDCUP PO PRN (00:23)
[2018-10-27] MEDS ORDERED: MAG HYDROX/AL HYDROX/SIMETH SUSP 30 ML UDCUP PO PRN (00:23)
[2018-10-27] MEDS ORDERED: ACETAMINOPHEN 325 MG TABLET PO PRN (00:32)
[2018-10-27] MEDS ORDERED: LEVALBUTEROL HCL NEB 0.63 MG/3 ML AMPUL NEB PRN (00:32)
[2018-10-27] MEDS ORDERED: NALBUPHINE HCL INJ 10 MG/1 ML AMPULE IV PRN (00:32)
[2018-10-27] MEDS ORDERED: PIPERACILLIN/TAZOBACTAM 3.375 GM VIAL IV PRN (00:33)
[2018-10-27] MEDS ORDERED: VANCOMYCIN HCL INJ 1000 MG VIAL IV PRN (01:04)
[2018-10-27] MEDS ORDERED: VANCOMYCIN HCL INJ 1000 MG VIAL ONE (01:35)
[2018-10-27] MEDS ORDERED: PIPERACILLIN/TAZOBACTAM 3.375 GM VIAL IV ONE (01:36)
[2018-10-27] MEDS ORDERED: VANCOMYCIN HCL 750 MG in DEXTROSE 5%-WATER 250 ML IV ONE (02:00)
[2018-10-27] MEDS: PIPERACILLIN SODIUM/TAZOBACTAM 3.375 GM in NORMAL SALINE 100 ML IV SCH ×4 (03:56→20:38)
[2018-10-27] MEDS: PANTOPRAZOLE SODIUM 40 MG TABLET.DR PO SCH ×2 (06:11→17:51)
[2018-10-27] MEDS ORDERED: LEVALBUTEROL HCL NEB 1.25 MG/3 ML AMPUL NEB SCH (08:00)
[2018-10-27] MEDS: BUDESONIDE NEB 0.5 MG/2 ML AMPUL NEB SCH ×2 (08:01→20:49)
[2018-10-27] MEDS: IPRATROPIUM BROMIDE 0.02% NEB 0.5 MG/2.5 ML AMPUL NEB SCH ×3 (08:01→20:49)
[2018-10-27] MEDS: DOCUSATE SODIUM 100 MG CAPSULE PO SCH ×2 (09:32→17:51)
[2018-10-27] MEDS ORDERED: VANCOMYCIN HCL INJ 1000 MG VIAL IV SCH (10:00)
[2018-10-27] MEDS: METOPROLOL SUCCINATE 25 MG TAB.SR.24H PO SCH (14:44)
[2018-10-27] MEDS: GABAPENTIN 100 MG CAPSULE PO SCH ×2 (14:44→21:56)
[2018-10-27] MEDS: APIXABAN 5 MG TABLET PO SCH ×2 (14:44→17:51)
[2018-10-27] MEDS: CARBIDOPA/LEVODOPA 25-100 MG TABLET PO SCH ×2 (14:44→17:51)
[2018-10-27] MEDS: AMIODARONE HCL 200 MG TABLET PO SCH (14:44)
[2018-10-27] MEDS: MIDODRINE HCL 5 MG TABLET PO SCH (14:45)
[2018-10-27] MEDS: LEVOTHYROXINE SODIUM 0.075 MG TABLET PO SCH (14:45)
[2018-10-27] MEDS: FLUTICASONE NASAL SPRAY 50 MCG/SPRY 120 SPRAY/16 GM NASL SCH (17:51)
[2018-10-27] MEDS: VANCOMYCIN HCL 1,000 MG in DEXTROSE 5%-WATER 250 ML IV SCH (17:51)
[2018-10-27] MEDS: SIMVASTATIN 10 MG TABLET PO SCH (21:56)
[2018-10-27] MEDS ORDERED: (PENDING PHARMACY ID) (Simvastatin [Simvastatin] 20 MG) PO SCH (22:00)
[2018-10-28] MEDS: PIPERACILLIN SODIUM/TAZOBACTAM 3.375 GM in NORMAL SALINE 100 ML IV SCH ×4 (03:13→20:03)
[2018-10-28] MEDS: PANTOPRAZOLE SODIUM 40 MG TABLET.DR PO SCH ×2 (05:03→17:24)
[2018-10-28] MEDS: GABAPENTIN 100 MG CAPSULE PO SCH ×3 (05:03→21:45)
[2018-10-28] MEDS: LEVOTHYROXINE SODIUM 0.075 MG TABLET PO SCH (05:04)
[2018-10-28 05:37] LABS: ABSOLUTE EOSINOPHILS # (AUTO) 0.5 10^3/uL (0.0-0.6); ABSOLUTE LYMPHOCYTES (AUTO) 1.1 10^3/uL (0.5-4.7); ABSOLUTE MONOCYTES (AUTO) 0.4 10^3/uL (0.1-1.4); ABSOLUTE NEUT (AUTO) 4.1 10^3/uL (1.7-8.2); BASOPHILS % (AUTO) 0.7 % (0-2); EOSINOPHILS % (AUTO) 7.8 % (0-6); HEMATOCRIT 34.5 % (37.9-51.0); HEMOGLOBIN 11.8 g/dL (13.5-17.0); LYMPHOCYTES % (AUTO) 18.2 % (13-45); MEAN CORPUSCULAR HEMOGLOBIN 32.1 pg (27.0-33.4); MEAN CORPUSCULAR HGB CONC 34.2 g/dL (32.0-36.0); MEAN CORPUSCULAR VOLUME 94 fl (80-97); PLATELET COUNT 217 10^3/uL (150-450); RED BLOOD COUNT 3.67 10^6/uL (4.35-5.55); RED CELL DISTRIBUTION WIDTH 13.8 % (11.5-14.0); SEGMENTED NEUTROPHILS % (AUTO) 66.3 % (42-78); TOTAL CELLS COUNTED % (AUTO) 100 %; WHITE BLOOD COUNT 6.3 10^3/uL (4.0-10.5)
[2018-10-28 05:54] LABS: ANION GAP 7 (5-19); BLOOD UREA NITROGEN 16 mg/dL (7-20); CALCIUM 8.9 mg/dL (8.4-10.2); CARBON DIOXIDE 23 mmol/L (22-30); CHLORIDE 109 mmol/L (98-107); CHOLESTEROL 107.95 mg/dL (0-200); GLUCOSE 86 mg/dL (75-110); POTASSIUM 4.5 mmol/L (3.6-5.0); TRIGLYCERIDES 82 mg/dL (<150)
[2018-10-28 06:11] LABS: FREE T3 3.11 pg/mL (2.77-5.27); FREE T4 (FREE THYROXINE) 1.62 ng/dL (0.78-2.19)
[2018-10-28 06:25] LABS: THYROID STIMULATING HORMONE 3.04 uIU/mL (0.47-4.68)
[2018-10-28 06:33] LABS: DIRECT LDL 56 mg/dL (<100)
[2018-10-28] MEDS: IPRATROPIUM BROMIDE 0.02% NEB 0.5 MG/2.5 ML AMPUL NEB SCH ×2 (07:43→20:27)
[2018-10-28] MEDS: BUDESONIDE NEB 0.5 MG/2 ML AMPUL NEB SCH ×2 (07:43→20:27)
[2018-10-28] MEDS: MIDODRINE HCL 5 MG TABLET PO SCH ×2 (09:23→17:24)
[2018-10-28] MEDS: FLUTICASONE NASAL SPRAY 50 MCG/SPRY 120 SPRAY/16 GM NASL SCH ×2 (09:23→17:25)
[2018-10-28] MEDS: APIXABAN 5 MG TABLET PO SCH ×2 (09:23→17:24)
[2018-10-28] MEDS: AMIODARONE HCL 200 MG TABLET PO SCH (09:23)
[2018-10-28] MEDS: CARBIDOPA/LEVODOPA 25-100 MG TABLET PO SCH ×3 (09:23→17:24)
[2018-10-28] MEDS: DOCUSATE SODIUM 100 MG CAPSULE PO SCH ×2 (09:23→17:24)
[2018-10-28] MEDS: METOPROLOL SUCCINATE 25 MG TAB.SR.24H PO SCH (09:23)
[2018-10-28] MEDS ORDERED: ONDANSETRON HCL INJ/PF 4 MG/2 ML SDV IV PRN (13:00)
[2018-10-28] MEDS: VANCOMYCIN HCL 1,000 MG in DEXTROSE 5%-WATER 250 ML IV SCH (17:23)
[2018-10-28] MEDS: SIMVASTATIN 10 MG TABLET PO SCH (21:45)
[2018-10-29] MEDS: PIPERACILLIN SODIUM/TAZOBACTAM 3.375 GM in NORMAL SALINE 100 ML IV SCH ×2 (02:49→10:11)
[2018-10-29] MEDS ORDERED: ACETAMINOPHEN 325 MG TABLET PO PRN (05:38)
[2018-10-29] MEDS ORDERED: IPRATROPIUM BROMIDE 0.02% NEB 0.5 MG/2.5 ML AMPUL NEB PRN (05:41)
--- NOTE | 2018-10-29 05:45 | PDOC PROGRESS REPORT ---
Subjective Progress Note for:: 10/28/18 Subjective:: 72 y.o. M with a PMH of AFIB (on Eliquis), COPD, hypothyroidism. Presented to [facility] with a dog bite. He was treated with Augmentin as an outpatient but after 3 days of oral abx, erythema and edema surrounding his wounds was getting worse. The patient is admitted to hospitalist service for cellulitis. The patient was seen on rounds, resting in bed. L hand still appears edematous (+1). Small amount of drainage from puncture wound to L hand. All other wounds are left open to air. Wound cultures pending. Likely discharge in 24 hours. Reason For Visit: CELLULITIS WITH LYMPHANGITIS SECONDARY TO DOG BITE Physical Exam Vital Signs: Temp Pulse Resp BP Pulse Ox 97.9 F 63 17 110/53 L 98 10/29/18 00:31 10/29/18 00:31 10/29/18 00:31 10/29/18 00:31 10/29/18 00:31 Intake & Output 10/27/18 10/28/18 10/29/18 06:59 06:59 06:59 Intake Total 100 2108 1896 Output Total 300 1151 2065 Balance -200 957 -169 Weight 65.4 kg 65.4 kg General appearance: PRESENT: no acute distress, well-developed, well-nourished Head exam: PRESENT: atraumatic, normocephalic Eye exam: PRESENT: conjunctiva pink, EOMI, PERRLA. ABSENT: scleral icterus Ear exam: PRESENT: normal external ear exam Mouth exam: PRESENT: moist, tongue midline Neck exam: ABSENT: carotid bruit, JVD, lymphadenopathy, thyromegaly Respiratory exam: PRESENT: clear to auscultation corine. ABSENT: rales, rhonchi, wheezes Cardiovascular exam: PRESENT: RRR. ABSENT: diastolic murmur, rubs, systolic murmur Pulses: PRESENT: normal dorsalis pedis pul Vascular exam: PRESENT: normal capillary refill GI/Abdominal exam: PRESENT: normal bowel sounds, soft. ABSENT: distended, guarding, mass, organolmegaly, rebound, tenderness Rectal exam: PRESENT: deferred Extremities exam: PRESENT: full ROM. ABSENT: calf tenderness, clubbing, pedal edema Neurological exam: PRESENT: alert, awake, oriented to person, oriented to place, oriented to time, oriented to situation, CN II-XII grossly intact. ABSENT: motor sensory deficit Psychiatric exam: PRESENT: appropriate affect, normal mood. ABSENT: homicidal ideation, suicidal ideation Skin exam: PRESENT: dry, intact, warm, other - SEVERAL PUCTURE WOUNDS ON L HAND (SS DRAINAGE) AND R FOREARM. LARGE BITE CHANELLE ON R FOREARM.. ABSENT: cyanosis, rash Results Laboratory Results: 10/28/18 04:58 10/28/18 04:58 10/28/18 10/28/18 10/28/18 04:58 04:58 04:58 WBC 6.3 RBC 3.67 L Hgb 11.8 L Hct 34.5 L MCV 94 MCH 32.1 MCHC 34.2 RDW 13.8 Plt Count 217 Seg Neutrophils % 66.3 Lymphocytes % 18.2 Monocytes % 7.0 Eosinophils % 7.8 H Basophils % 0.7 Absolute Neutrophils 4.1 Absolute Lymphocytes 1.1 Absolute Monocytes 0.4 Absolute Eosinophils 0.5 Absolute Basophils 0.0 Sodium 139.0 Potassium 4.5 Chloride 109 H Carbon Dioxide 23 Anion Gap 7 BUN 16 Creatinine 1.17 Est GFR ( Amer) > 60 Est GFR (Non-Af Amer) > 60 Glucose 86 Calcium 8.9 Magnesium 2.1 Triglycerides 82 Cholesterol 107.95 LDL Cholesterol Direct 56 VLDL Cholesterol 16.0 HDL Cholesterol 40 TSH 3.04 Free T4 1.62 Free T3 pg/mL 3.11 Impressions: Hand X-Ray 10/26/18 18:50 IMPRESSION: No fracture dislocation of the left hand. No radiopaque foreign body. Soft tissue swelling about the thumb. Status: Imported from PACS Assessment and Plan - Diagnosis (1) Cellulitis of skin with lymphangitis Is this a current diagnosis for this admission?: Yes Plan: Stemming from dog bite Failed oral antibiotic therapy Wound culture pending Continue IV zosyn and vancomycin PRN Tylenol for pain (2) Open wound of left hand due to dog bite Is this a current diagnosis for this admission?: Yes Plan: Plan as above (3) Paroxysmal atrial fibrillation Is this a current diagnosis for this admission?: Yes Plan: PMH AFIB Currently rate controlled Continue home dose apixaban and amiodarone (4) COPD (chronic obstructive pulmonary disease) Qualifiers: COPD type: unspecified COPD Qualified Code(s): J44.9 - Chronic obstructive pulmonary disease, unspecified Is this a current diagnosis for this admission?: Yes Plan: H COPD PRN and scheduled nebulizer treatments (5) Hypothyroid Qualifiers: Hypothyroidism type: acquired Qualified Code(s): E03.9 - Hypothyroidism, unspecified Is this a current diagnosis for this admission?: Yes Plan: [facility] Hypothyroidism Continue home dose Synthroid - Time Time Spent with patient: 15-24 minutes Medications reviewed and adjusted accordingly: Yes Anticipated discharge: Home Within: within 48 hours - Inpatient Certification Based on my medical assessment, after consideration of the patient's comorbidities, presenting symptoms, or acuity I expect that the services needed warrant INPATIENT care.: Yes I certify that my determination is in accordance with my understanding of [facility]'s requirements for reasonable and necessary INPATIENT services [42 CFR 412.3e].: Yes Medical Necessity: Need For IV Fluids
--- NOTE | 2018-10-29 05:46 | Progress Note Acknowledgement ---
Progress Note Acknowledgement Progess Note Acknowledgement: I, the undersigned member of the medical staff with appropriate privileges and with supervisory authority over [ kunal luna ], a [facility] practice allied health professional, acknowledge that I have reviewed the progress notes entered on this patient, and in my professional judgment believe that the assessment made and/or any care evidenced was appropriate
--- NOTE | 2018-10-29 05:50 | PDOC PROGRESS REPORT ---
Subjective Progress Note for:: 10/27/18 Subjective:: 72 y.o. M with a PMH of AFIB (on Eliquis), COPD, hypothyroidism. Presented to [facility] with a dog bite. He was treated with Augmentin as an outpatient but after 3 days of oral abx, erythema and edema surrounding his wounds was getting worse. The patient is admitted to hospitalist service for cellulitis. The patient was seen on rounds, resting in bed. He was able to shower today, states he feels well. L hand appears edematous (+1-2). Small amount of drainage from puncture wound to L hand. All other wounds are left open to air. Wound cultures pending. Likely discharge in 24-48 hours. Reason For Visit: CELLULITIS WITH LYMPHANGITIS SECONDARY TO DOG BITE Physical Exam Vital Signs: Temp Pulse Resp BP Pulse Ox 97.9 F 63 17 110/53 L 98 10/29/18 00:31 10/29/18 00:31 10/29/18 00:31 10/29/18 00:31 10/29/18 00:31 Intake & Output 10/27/18 10/28/18 10/29/18 06:59 06:59 06:59 Intake Total 100 2108 1896 Output Total 300 1151 2065 Balance -200 957 -169 Weight 65.4 kg 65.4 kg General appearance: PRESENT: no acute distress, well-developed, well-nourished Head exam: PRESENT: atraumatic, normocephalic Eye exam: PRESENT: conjunctiva pink, EOMI, PERRLA. ABSENT: scleral icterus Ear exam: PRESENT: normal external ear exam Mouth exam: PRESENT: moist, tongue midline Neck exam: ABSENT: carotid bruit, JVD, lymphadenopathy, thyromegaly Respiratory exam: PRESENT: clear to auscultation corine. ABSENT: rales, rhonchi, wheezes Cardiovascular exam: PRESENT: RRR. ABSENT: diastolic murmur, rubs, systolic murmur Pulses: PRESENT: normal dorsalis pedis pul Vascular exam: PRESENT: normal capillary refill GI/Abdominal exam: PRESENT: normal bowel sounds, soft. ABSENT: distended, guarding, mass, organolmegaly, rebound, tenderness Rectal exam: PRESENT: deferred Extremities exam: PRESENT: full ROM. ABSENT: calf tenderness, clubbing, pedal edema Neurological exam: PRESENT: alert, awake, oriented to person, oriented to place, oriented to time, oriented to situation, CN II-XII grossly intact. ABSENT: motor sensory deficit Psychiatric exam: PRESENT: appropriate affect, normal mood. ABSENT: homicidal ideation, suicidal ideation Skin exam: PRESENT: dry, intact, warm, other - NUMEROUS SMALL PUNCTURE WOUNDS ON L HAND AND R FOREARM. LARGE BITE CHANELLE ON R FOREARM. MINIMAL SS DRAINAGE. ABSENT: cyanosis, rash Results Laboratory Results: 10/28/18 04:58 10/28/18 04:58 10/28/18 10/28/18 10/28/18 04:58 04:58 04:58 WBC 6.3 RBC 3.67 L Hgb 11.8 L Hct 34.5 L MCV 94 MCH 32.1 MCHC 34.2 RDW 13.8 Plt Count 217 Seg Neutrophils % 66.3 Lymphocytes % 18.2 Monocytes % 7.0 Eosinophils % 7.8 H Basophils % 0.7 Absolute Neutrophils 4.1 Absolute Lymphocytes 1.1 Absolute Monocytes 0.4 Absolute Eosinophils 0.5 Absolute Basophils 0.0 Sodium 139.0 Potassium 4.5 Chloride 109 H Carbon Dioxide 23 Anion Gap 7 BUN 16 Creatinine 1.17 Est GFR ( Amer) > 60 Est GFR (Non-Af Amer) > 60 Glucose 86 Calcium 8.9 Magnesium 2.1 Triglycerides 82 Cholesterol 107.95 LDL Cholesterol Direct 56 VLDL Cholesterol 16.0 HDL Cholesterol 40 TSH 3.04 Free T4 1.62 Free T3 pg/mL 3.11 Impressions: Hand X-Ray 10/26/18 18:50 IMPRESSION: No fracture dislocation of the left hand. No radiopaque foreign body. Soft tissue swelling about the thumb. Status: Imported from PACS Assessment and Plan - Diagnosis (1) Cellulitis of skin with lymphangitis Is this a current diagnosis for this admission?: Yes Plan: Stemming from dog bite Failed oral antibiotic therapy Wound culture pending Continue IV zosyn and vancomycin PRN Tylenol for pain (2) Open wound of left hand due to dog bite Is this a current diagnosis for this admission?: Yes Plan: Plan as above (3) Paroxysmal atrial fibrillation Is this a current diagnosis for this admission?: Yes Plan: PMH AFIB Currently rate controlled Continue home dose apixaban and amiodarone (4) COPD (chronic obstructive pulmonary disease) Qualifiers: COPD type: unspecified COPD Qualified Code(s): J44.9 - Chronic obstructive pulmonary disease, unspecified Is this a current diagnosis for this admission?: Yes Plan: [facility] COPD PRN DUONEBS Scheduled Pulmicort and atrovent (5) Hypothyroid Qualifiers: Hypothyroidism type: acquired Qualified Code(s): E03.9 - Hypothyroidism, unspecified Is this a current diagnosis for this admission?: Yes Plan: [facility] Hypothyroidism Continue home dose Synthroid - Time Time Spent with patient: 15-24 minutes Medications reviewed and adjusted accordingly: Yes Anticipated discharge: Home Within: within 48 hours - Inpatient Certification Based on my medical assessment, after consideration of the patient's comorbidities, presenting symptoms, or acuity I expect that the services needed warrant INPATIENT care.: Yes I certify that my determination is in accordance with my understanding of Medicare's requirements for reasonable and necessary INPATIENT services [42 CFR 412.3e].: Yes Medical Necessity: Need for IV Antibiotics
[2018-10-29] MEDS: PANTOPRAZOLE SODIUM 40 MG TABLET.DR PO SCH (06:17)
[2018-10-29] MEDS: GABAPENTIN 100 MG CAPSULE PO SCH (06:17)
[2018-10-29] MEDS: LEVOTHYROXINE SODIUM 0.075 MG TABLET PO SCH (06:17)
[2018-10-29 07:19] LABS: ANION GAP 8 (5-19); BLOOD UREA NITROGEN 17 mg/dL (7-20); CALCIUM 8.9 mg/dL (8.4-10.2); CARBON DIOXIDE 25 mmol/L (22-30); CHLORIDE 109 mmol/L (98-107); GLUCOSE 84 mg/dL (75-110); POTASSIUM 4.6 mmol/L (3.6-5.0); SODIUM 141.9 mmol/L (137-145)
[2018-10-29 07:23] LABS: HEMOGLOBIN 12.6 g/dL (13.5-17.0); MEAN CORPUSCULAR HEMOGLOBIN 32.1 pg (27.0-33.4); MEAN CORPUSCULAR HGB CONC 34.1 g/dL (32.0-36.0); MEAN CORPUSCULAR VOLUME 94 fl (80-97); PLATELET COUNT 249 10^3/uL (150-450); RED BLOOD COUNT 3.94 10^6/uL (4.35-5.55)
[2018-10-29 07:57] LABS: ABSOLUTE LYMPHOCYTES# (MANUAL) 1.1 10^3/uL (0.5-4.7); ABSOLUTE MONOCYTES # (MANUAL) 1.1 10^3/uL (0.1-1.4); BASOPHILS % (MANUAL) 0 % (0-2); EOSINOPHILS % (MANUAL) 11 % (0-6); LYMPHOCYTES % (MANUAL) 14 % (13-45); MONOCYTES % (MANUAL) 15 % (3-13); SEGMENTED NEUTROPHILS % (MAN) 59 % (42-78); TOTAL CELLS COUNTED 100
[2018-10-29 08:04] LABS: POIKILOCYTOSIS SLIGHT
[2018-10-29 08:05] LABS: PLATELET COMMENT ADEQUATE
[2018-10-29] MEDS: BUDESONIDE NEB 0.5 MG/2 ML AMPUL NEB SCH (08:07)
[2018-10-29] MEDS: DOCUSATE SODIUM 100 MG CAPSULE PO SCH (10:14)
[2018-10-29] MEDS: FLUTICASONE NASAL SPRAY 50 MCG/SPRY 120 SPRAY/16 GM NASL SCH (10:15)
[2018-10-29] MEDS: APIXABAN 5 MG TABLET PO SCH (10:15)
[2018-10-29] MEDS: MIDODRINE HCL 5 MG TABLET PO SCH (10:16)
[2018-10-29] MEDS: CARBIDOPA/LEVODOPA 25-100 MG TABLET PO SCH (10:16)
[2018-10-29] MEDS: AMIODARONE HCL 200 MG TABLET PO SCH (10:18)
[2018-10-29] MEDS: METOPROLOL SUCCINATE 25 MG TAB.SR.24H PO SCH (10:19)
[2018-10-29 12:43] VITALS: BP 92/54
--- NOTE | 2018-10-29 19:08 | PDOC DISCHARGE SUMMARY ---
General - Admit/Disc Date/PCP Admission Date/Primary Care Provider: 10/26/18 23:41 DELFINO BLACKMON PA-C Discharge Date: 10/29/18 - Discharge Diagnosis (1) Cellulitis of skin with lymphangitis Is this a current diagnosis for this admission?: Yes Summary: Significantly improved. Stemming from dog bite. Failed oral antibiotic therapy; Augmentin. Wound culture pending at time of discharge (discussed w/ Micro; Coag Negative Staph present). He was admitted to the medical floor and empirically placed on IV zosyn and vancomycin Have discharged home on Bactrim and Clindamycin. PRN Tylenol for pain (2) Open wound of left hand due to dog bite Is this a current diagnosis for this admission?: Yes Summary: As above. (3) Paroxysmal atrial fibrillation Is this a current diagnosis for this admission?: Yes Summary: PMH AFIB Currently rate controlled Continue home dose apixaban and amiodarone (4) Hypothyroid Is this a current diagnosis for this admission?: Yes Summary: PMH Hypothyroidism Continue home dose Synthroid (5) COPD (chronic obstructive pulmonary disease) Is this a current diagnosis for this admission?: Yes Summary: PMH of COPD. Stable and without exacerbation throughout admission. Continue home regiment of Bevespi, ProAir HFA, and Flonase. - Additional Information Resuscitation Status: Full Code Discharge Diet: Regular Discharge Activity: Activity As Tolerated Prescriptions: Clindamycin HCl 300 mg PO TID #21 capsule Sulfamethoxazole/Trimethoprim [Bactrim Ds Tablet] 1 each PO BID #14 tablet Home Medications: Acetaminophen [Tylenol Extra Strength 500 mg Tablet] 1,000 mg PO Q4HP PRN 10/27/18 Albuterol Sulfate [Proair HFA Inhalation Aerosol 8.5 gm MDI] 2 puff IH Q4HP PRN 10/27/18 Amiodarone HCl [Cordarone 200 mg Tablet] 200 mg PO DAILY 10/27/18 Apixaban [Eliquis 5 mg Tablet] 5 mg PO BID 10/27/18 Carbidopa/Levodopa [Sinemet 25-100 mg Tablet] 1 tab PO TID 10/27/18 Fluticasone Propionate [Flonase Nasal [place] 50 Mcg/[place] 16 gm] 2 spray NASL BID 10/27/18 Gabapentin [Neurontin 100 mg Capsule] 100 mg PO Q8 10/27/18 Glycopyrrolate/Formoterol Fum [Bevespi Aerosphere Inhaler] 2 puff IH Q12 10/27/18 Levothyroxine Sodium 75 mcg PO Q6AM 10/27/18 Metoprolol Succinate [Toprol Xl 25 mg Tab.sr] 12.5 mg PO DAILY 10/27/18 Midodrine HCl [Proamatine 5 mg Tablet] 5 mg PO BID 10/27/18 Pantoprazole Sodium 40 mg PO DAILY 10/27/18 Simvastatin 20 mg PO QHS 10/27/18 Acetaminophen [Tylenol 325 mg Tablet] 975 mg PO Q6HP PRN tablet 10/29/18 Clindamycin HCl 300 mg PO TID #21 capsule 10/29/18 Docusate Sodium [Colace 100 mg Capsule] 100 mg PO BID capsule 10/29/18 Sulfamethoxazole/Trimethoprim [Bactrim Ds Tablet] 1 each PO BID #14 tablet 10/29/18 History of Present Illness History of Present Illness: Per H&P by Dr. Ho: LIONEL ACEVEDO is a 72 year old male who presented to the emergency room with increased redness and swelling of his previously treated dog bites. He admits that on 10/24/2018 he was treated in the ER for bites that he received from 2 pitbull dogs just prior to that visit. His wounds were cleaned and he was started on a wound care regiment with cleansing and oral antibiotics (Augmentin). Since that time he is noticed increasing redness and swelling of the bite sites involving the left hand and right forearm. He admits constant, nonradiating, moderate, aching pain at the sites of the dog bites since the injury. He denies other associated or accompanying symptoms. He denies prior similar episodes and has not identified any other aggravating or ameliorating factors for his increased redness and swelling. In the emergency room he was noted to have erythema and edema of the areas surrounding the wounds and mild erythematous streaking following the lymphatic channels of both arms to above the elbow. Patient was subsequently admitted to the hospital for further evaluation and treatment. Physical Exam Vital Signs: Temp Pulse Resp BP Pulse Ox 98.3 F 61 14 101/58 L 96 10/29/18 07:54 10/29/18 08:08 10/29/18 08:08 10/29/18 07:54 10/29/18 08:08 Intake & Output 10/28/18 10/29/18 10/30/18 06:59 06:59 06:59 Intake Total 2109 1896 Output Total 1157 2065 Balance 957 -169 Weight 65.4 kg 67.4 kg General appearance: PRESENT: no acute distress, well-developed, well-nourished Head exam: PRESENT: atraumatic, normocephalic Eye exam: PRESENT: conjunctiva pink, EOMI, PERRLA. ABSENT: scleral icterus Ear exam: PRESENT: normal external ear exam Mouth exam: PRESENT: moist, tongue midline Neck exam: ABSENT: carotid bruit, JVD, lymphadenopathy, thyromegaly Respiratory exam: PRESENT: clear to auscultation corine. ABSENT: rales, rhonchi, wheezes Cardiovascular exam: PRESENT: RRR. ABSENT: diastolic murmur, rubs, systolic murmur Pulses: PRESENT: normal dorsalis pedis pul Vascular exam: PRESENT: normal capillary refill GI/Abdominal exam: PRESENT: normal bowel sounds, soft. ABSENT: distended, guarding, mass, organolmegaly, rebound, tenderness Rectal exam: PRESENT: deferred Extremities exam: PRESENT: full ROM. ABSENT: calf tenderness, clubbing, pedal edema Neurological exam: PRESENT: alert, awake, oriented to person, oriented to place, oriented to time, oriented to situation, CN II-XII grossly intact. ABSENT: motor sensory deficit Psychiatric exam: PRESENT: appropriate affect, normal mood. ABSENT: homicidal ideation, suicidal ideation Skin exam: PRESENT: dry, warm. ABSENT: cyanosis, intact - Several puncture moya to left hand and an approximately 6 cm long laceration to his right forearm. Laceration to right forearm with slight edema, no erythema. No drainage to any wounds. Lymphangitis has resolved., rash Results Laboratory Results: 10/29/18 06:12 10/29/18 06:12 10/29/18 10/29/18 06:12 06:12 WBC 7.0 RBC 3.94 L Hgb 12.6 L Hct 37.0 L MCV 94 MCH 32.1 MCHC 34.1 RDW 14.0 Plt Count 249 Seg Neutrophils % Not Reportable Lymphocytes % Not Reportable Monocytes % Not Reportable Eosinophils % Not Reportable Basophils % Not Reportable Absolute Neutrophils Not Reportable Absolute Lymphocytes Not Reportable Absolute Monocytes Not Reportable Absolute Eosinophils Not Reportable Absolute Basophils Not Reportable Sodium 141.9 Potassium 4.6 Chloride 109 H Carbon Dioxide 25 Anion Gap 8 BUN 17 Creatinine 1.26 H Est GFR ( Amer) > 60 Est GFR (Non-Af Amer) 56 L Glucose 84 Calcium 8.9 Magnesium 2.2 Impressions: Hand X-Ray 10/26/18 18:50 IMPRESSION: No fracture dislocation of the left hand. No radiopaque foreign body. Soft tissue swelling about the thumb. Qualifiers - * PATIENT BEING DISCHARGED WITH ANY OF THE FOLLOWING DIAGNOSIS: No Acute Heart Failure - Is this a Heart Failure Patient?: No Plan Discharge Plan: Follow-up with primary care provider within 1 week. Wash wounds with warm soapy water once daily and as needed. Keep clean and dry. Complete course of Bactrim and clindamycin. Return to the emergency department as needed for concerning symptoms. Time Spent: Greater than 30 Minutes
[2018-10-30] MEDS ORDERED: PANTOPRAZOLE SODIUM 40 MG TABLET.DR PO SCH (06:00)
== END 2018-10-29 13:05 | disposition home or self-care (01) | DRG 603 ==
LOC: ER 18:17 → EH 23:41 → 5 10-27 01:00
PROVIDERS: ADMIT Emergency Medicine; ATTEND Emergency Medicine
DX: L03.113 Cellulitis of right upper limb (principal); S51.851A Open bite of right forearm, initial encounter; I48.0 Paroxysmal atrial fibrillation; W54.0XXA Bitten by dog, initial encounter; Z79.01 Long term (current) use of anticoagulants; N18.3 Chronic kidney disease, stage 3 (moderate); Z87.891 Personal history of nicotine dependence; K21.9 Gastro-esophageal reflux disease without esophagitis; J44.9 Chronic obstructive pulmonary disease, unspecified; E78.5 Hyperlipidemia, unspecified; I12.9 Hypertensive chronic kidney disease with stage 1 through stage 4 chronic kidney disease, or unspecified chronic kidney disease; I89.1 Lymphangitis; E03.9 Hypothyroidism, unspecified; Z79.899 Other long term (current) drug therapy
CPT/HCPCS: 36415; 80048; 80053; 80061; 83735; 84439; 84443; 84481; 85025; 87040; 87070; 87075; 87205; 94640; J2300; J2543; J3370; J3490; J7050; J7060

== ENCOUNTER → 2018-12-10 | Outpatient (CLI) | payer MEDICARE, MEDICAID ==
[2018-12-10 15:11] LABS: ABSOLUTE BASOPHILS # (AUTO) 0.1 10^3/uL (0.0-0.2); ABSOLUTE EOSINOPHILS # (AUTO) 0.4 10^3/uL (0.0-0.6); ABSOLUTE LYMPHOCYTES (AUTO) 1.7 10^3/uL (0.5-4.7); ABSOLUTE MONOCYTES (AUTO) 0.6 10^3/uL (0.1-1.4); ABSOLUTE NEUT (AUTO) 4.7 10^3/uL (1.7-8.2); BASOPHILS % (AUTO) 0.8 % (0-2); EOSINOPHILS % (AUTO) 5.8 % (0-6); HEMATOCRIT 35.8 % (37.9-51.0); HEMOGLOBIN 12.1 g/dL (13.5-17.0); LYMPHOCYTES % (AUTO) 22.2 % (13-45); MEAN CORPUSCULAR HEMOGLOBIN 31.7 pg (27.0-33.4); MEAN CORPUSCULAR HGB CONC 33.7 g/dL (32.0-36.0); MEAN CORPUSCULAR VOLUME 94 fl (80-97); MONOCYTES % (AUTO) 8.5 % (3-13); PLATELET COUNT 200 10^3/uL (150-450); RED BLOOD COUNT 3.81 10^6/uL (4.35-5.55); RED CELL DISTRIBUTION WIDTH 14.6 % (11.5-14.0); SEGMENTED NEUTROPHILS % (AUTO) 62.7 % (42-78); TOTAL CELLS COUNTED % (AUTO) 100 %; WHITE BLOOD COUNT 7.5 10^3/uL (4.0-10.5)
[2018-12-10 15:49] LABS: ERYTHROCYTE SEDIMENTATION RATE 32 mm/hr (0-20)
== END ==
LOC: OD 14:16
PROVIDERS: ATTEND Physician Assistant
DX: S61.452A Open bite of left hand, initial encounter (principal); W54.0XXA Bitten by dog, initial encounter
CPT/HCPCS: 36415; 85025; 85652; 86140

== ENCOUNTER → 2018-12-11 | Outpatient (CLI) | payer MEDICARE, MEDICAID ==
--- NOTE | 2018-12-11 14:00 | RADIOLOGY REPORT (SQ) ---
EXAM DESCRIPTION: CT LT UPPER EXTREMITY WITHOUT COMPLETED DATE/TIME: 12/11/2018 1:08 pm REASON FOR STUDY: (M86.242)SUBACUTE OSTEOMYELITIS, LEFT HAND M79.642 PAIN IN LEFT HAND M86.242 SUB ACUTE OSTEOMYELITIS, LEFT HAND COMPARISON: Plain radiograph TECHNIQUE: Axial imaging performed through the left hand with reformatted coronal and sagittal imagi ng windowed for bone and soft tissues. Images saved to PACS. 3D IMAGING: Were 3D images as MIP, SSD, or volume rendering performed at the work station? Yes All CT scanners at this facility use dose modulation, iterative reconstruction, and/or weight based d osing when appropriate to reduce radiation dose to as low as reasonably achievable (ALARA). [facility]: Dose Right [facility]: CareDose [facility]: Dose Right [facility]: Teradose 4D [facility]: [employer] LIMITATIONS: None. RADIATION DOSE: CT Rad equipment meets quality standard of care and radiation dose reduction techniq ues were employed. CTDIvol: 4.6 mGy. DLP: 117 mGy-cm. mGy. FINDINGS: SOFT TISSUES: Mild generalize swelling of the soft tissues of the thumb BONES: No acute fracture. No dislocation. No cortical disruption. MINERALIZATION: Normal. OTHER: No other significant finding. IMPRESSION: Soft tissue swelling. No evidence for osteomyelitis. TECHNICAL DOCUMENTATION: JOB ID: [id number] Quality ID # [id number]: Final reports with documentation of one or more dose reduction techniques (e.g., Au tomated exposure control, adjustment of the mA and/or kV according to patient size, use of iterative reconstruction technique) 2010 [employer]- All Rights Reserved Reading location - IP/workstation name: [email or web address]
== END ==
LOC: RAD 12:53
PROVIDERS: ATTEND Physician Assistant
DX: M86.242 Subacute osteomyelitis, left hand (principal); M79.642 Pain in left hand

== ENCOUNTER → 2019-01-06 | Outpatient (CLI) | payer MEDICARE, MEDICAID ==
--- NOTE | 2019-01-01 12:45 | RADIOLOGY REPORT (SQ) ---
EXAM DESCRIPTION: NM 3 PHASE BONE SCAN COMPLETED DATE/TIME: 01/01/2019 12:26 pm REASON FOR STUDY: PAIN IN LEFT HAND - DOG BITE M79.642 PAIN IN LEFT HAND COMPARISON: CT 12/11/2018. Radiographs 10/26/2018. RADIONUCLIDE AND DOSE: 21.1 millicuries Tc99m MDP. The route of agent administration: Intravenous. ADDITIONAL DRUGS AND DOSES: None. TECHNIQUE: Following injection of the radiopharmaceutical, serial blood flow images acquired. Equil ibrium blood pool images then acquired. Routine delayed images at 3 hour acquired of the areas of cl inical concern with additional focused images as needed. AREA OF INTEREST: Left hand LIMITATIONS: None. FINDINGS: VASCULAR FLOW IMAGES: No asymmetry or focal areas of hyperemia. BLOOD POOL IMAGES: Increased blood pooling in the left hand close to the base of the index metacarpal . Likely in the trapezoid. BONES: Corresponding increased uptake in the region of the trapezoid and base of the index metacarpal . This appears to correlate with joint space narrowing and mild spurring and erosions or cysts at th is articulation. OTHER: No other significant finding. IMPRESSION: 1. Uptake along the carpometacarpal index finger articulation. This is seen on 2 out of the 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 Osteomyelitis is felt to be unlikely unless there was direct penetrating trauma from dog bite to this region specif ically. COMMENT: Quality measure 147: Current bone scan is compared with any available plain radiographs, p rior bone scans, and CT/MRI. TECHNICAL DOCUMENTATION: JOB ID: [id number] [employer]- All Rights Reserved Reading location - IP/workstation name: [email or web address]
== END ==
LOC: RAD 08:17
PROVIDERS: ATTEND Orthopaedic Surgery Hand Surgery
DX: M79.642 Pain in left hand (principal)
CPT/HCPCS: 78315; A9561; Q9969

== ENCOUNTER → 2019-01-06 | Outpatient (CLI) | payer MEDICARE, MEDICAID ==
[2019-01-06 08:41] LABS: ABSOLUTE BASOPHILS # (AUTO) 0.1 10^3/uL (0.0-0.2); ABSOLUTE EOSINOPHILS # (AUTO) 0.3 10^3/uL (0.0-0.6); ABSOLUTE LYMPHOCYTES (AUTO) 1.5 10^3/uL (0.5-4.7); ABSOLUTE MONOCYTES (AUTO) 0.5 10^3/uL (0.1-1.4); ABSOLUTE NEUT (AUTO) 3.6 10^3/uL (1.7-8.2); BASOPHILS % (AUTO) 1.1 % (0-2); EOSINOPHILS % (AUTO) 4.5 % (0-6); HEMATOCRIT 36.6 % (37.9-51.0); HEMOGLOBIN 12.2 g/dL (13.5-17.0); MEAN CORPUSCULAR HEMOGLOBIN 31.7 pg (27.0-33.4); MEAN CORPUSCULAR HGB CONC 33.4 g/dL (32.0-36.0); MEAN CORPUSCULAR VOLUME 95 fl (80-97); MONOCYTES % (AUTO) 8.3 % (3-13); PLATELET COUNT 196 10^3/uL (150-450); RED BLOOD COUNT 3.85 10^6/uL (4.35-5.55); RED CELL DISTRIBUTION WIDTH 14.5 % (11.5-14.0); SEGMENTED NEUTROPHILS % (AUTO) 61.1 % (42-78); TOTAL CELLS COUNTED % (AUTO) 100 %; WHITE BLOOD COUNT 5.8 10^3/uL (4.0-10.5)
[2019-01-06 09:18] LABS: ERYTHROCYTE SEDIMENTATION RATE 36 mm/hr (0-20)
== END ==
LOC: LAB 08:15
PROVIDERS: ATTEND Physician Assistant
DX: M79.642 Pain in left hand (principal)
CPT/HCPCS: 36415; 85025; 85652; 86140

== ENCOUNTER → 2019-02-03 | Outpatient (CLI) | payer MEDICARE, MEDICAID ==
[2019-02-03 10:07] LABS: ABSOLUTE EOSINOPHILS # (AUTO) 0.4 10^3/uL (0.0-0.6); ABSOLUTE LYMPHOCYTES (AUTO) 1.8 10^3/uL (0.5-4.7); ABSOLUTE MONOCYTES (AUTO) 0.6 10^3/uL (0.1-1.4); BASOPHILS % (AUTO) 0.5 % (0-2); EOSINOPHILS % (AUTO) 5.7 % (0-6); LYMPHOCYTES % (AUTO) 26.1 % (13-45); MEAN CORPUSCULAR HEMOGLOBIN 31.8 pg (27.0-33.4); MEAN CORPUSCULAR HGB CONC 33.4 g/dL (32.0-36.0); MEAN CORPUSCULAR VOLUME 95 fl (80-97); MONOCYTES % (AUTO) 9.3 % (3-13); PLATELET COUNT 192 10^3/uL (150-450); RED BLOOD COUNT 3.78 10^6/uL (4.35-5.55); RED CELL DISTRIBUTION WIDTH 15.1 % (11.5-14.0); SEGMENTED NEUTROPHILS % (AUTO) 58.4 % (42-78); TOTAL CELLS COUNTED % (AUTO) 100 %; WHITE BLOOD COUNT 6.8 10^3/uL (4.0-10.5)
== END ==
LOC: OD 08:09
PROVIDERS: ATTEND Physician Assistant
DX: M79.642 Pain in left hand (principal); W54.0XXD Bitten by dog, subsequent encounter
CPT/HCPCS: 36415; 85025; 85652; 86140

== ENCOUNTER → 2019-03-03 | Outpatient (CLI) | payer MEDICARE, MEDICAID ==
[2019-03-03 09:15] LABS: HEMATOCRIT 38.5 % (37.9-51.0); MEAN CORPUSCULAR HEMOGLOBIN 32.3 pg (27.0-33.4); MEAN CORPUSCULAR HGB CONC 33.7 g/dL (32.0-36.0); MEAN CORPUSCULAR VOLUME 96 fl (80-97); PLATELET COUNT 195 10^3/uL (150-450); RED BLOOD COUNT 4.02 10^6/uL (4.35-5.55); RED CELL DISTRIBUTION WIDTH 14.6 % (11.5-14.0); WHITE BLOOD COUNT 7.9 10^3/uL (4.0-10.5)
[2019-03-03 09:20] LABS: APPEARANCE,URINE CLEAR; BILIRUBIN,URINE NEGATIVE (NEGATIVE); COLOR,URINE YELLOW; GLUCOSE, URINE NEGATIVE (NEGATIVE); KETONES,URINE NEGATIVE (NEGATIVE); LEUKOCYTE ESTERASE,URINE NEGATIVE (NEGATIVE); NITRITE,URINE NEGATIVE (NEGATIVE); PROTEIN,URINE NEGATIVE (NEGATIVE); UROBILINOGEN,URINE NEGATIVE mg/dL (<2.0)
[2019-03-03 09:31] LABS: ADD MANUAL MICROSCOPIC YES
[2019-03-03 09:33] LABS: RBC,URINE 0-1 /HPF; WBC,URINE 0-1 /HPF
[2019-03-03 09:47] LABS: ANION GAP 11 (5-19); BLOOD UREA NITROGEN 19 mg/dL (7-20); CALCIUM 9.2 mg/dL (8.4-10.2); CARBON DIOXIDE 26 mmol/L (22-30); CHLORIDE 105 mmol/L (98-107); GLUCOSE 85 mg/dL (75-110); POTASSIUM 4.7 mmol/L (3.6-5.0)
== END ==
LOC: OD 08:23
PROVIDERS: ATTEND Physician Assistant Medical
DX: N18.3 Chronic kidney disease, stage 3 (moderate) (principal); I95.1 Orthostatic hypotension; E87.5 Hyperkalemia
CPT/HCPCS: 36415; 80048; 81001; 85027

== ENCOUNTER → 2019-04-10 | Outpatient (CLI) | payer MEDICARE, MEDICAID ==
--- NOTE | 2019-04-10 15:55 | RADIOLOGY REPORT (SQ) ---
EXAM DESCRIPTION: CT CHEST WITHOUT COMPLETED DATE/TIME: 04/10/2019 3:22 pm REASON FOR STUDY: (J84.10)PULMONARY FIBROSIS, UNSPECIFIED J84.10 PULMONARY FIBROSIS, UNSPECIFIED COMPARISON: 10/19/2017. TECHNIQUE: CT scan performed of the chest without intravenous contrast. Images reviewed with lung, soft tissue and bone windows. Reconstructed coronal and sagittal MPR images reviewed. All images st ored on PACS. All CT scanners at this facility use dose modulation, iterative reconstruction, and/or weight based d osing when appropriate to reduce radiation dose to as low as reasonably achievable (ALARA). [facility]: Dose Right [facility]: CareDose [facility]: Dose Right [facility]: Teradose 4D [facility]: [employer] RADIATION DOSE: CT Rad equipment meets quality standard of care and radiation dose reduction techniq ues were employed. CTDIvol: 8.0 mGy. DLP: 335 mGy-cm. mGy. LIMITATIONS: No technical limitations. FINDINGS: LUNGS AND PLEURA: Stable mild peripheral interstitial scarring. No masses, infiltrates, o r pneumothorax. No pleural effusions or pleural calcifications. HILAR AND MEDIASTINAL STRUCTURES: No identified masses or abnormal nodes. No obvious aneurysm. HEART AND VASCULAR STRUCTURES: Stable dilation/ ectasia of the ascending thoracic aorta, measuring ap proximately 4.0 cm. No pericardial effusion. UPPER ABDOMEN: No significant findings. Limited exam. THYROID AND OTHER SOFT TISSUES: No masses. No adenopathy. BONES: No significant finding. HARDWARE: Pacemaker. OTHER: No other significant findings. IMPRESSION: STABLE NONCONTRAST CT OF THE CHEST. MILD PERIPHERAL INTERSTITIAL SCARRING. NO ACUTE FI NDINGS. TECHNICAL DOCUMENTATION: JOB ID: [id number] Quality ID # [id number]: Final reports with documentation of one or more dose reduction techniques (e.g., Au tomated exposure control, adjustment of the mA and/or kV according to patient size, use of iterative reconstruction technique) 2010 [employer]- All Rights Reserved Reading location - IP/workstation name: [email or web address]
== END ==
LOC: RAD 15:05
PROVIDERS: ATTEND Registered Nurse
DX: J84.10 Pulmonary fibrosis, unspecified (principal)
CPT/HCPCS: 71250